=== PATIENT | female | born 1970 | race Caucasian/White ===

== ENCOUNTER 2019-05-26 06:00 | Outpatient (RCR) | payer MEDICAID, SELFPAY | END 2019-06-25 00:01 | LOC: GPT 06:00 | PROVIDERS: Family Provider Nurse Practitioner Family; Visit Provider Licensed Practical Nurse | DX: G89.29 Other chronic pain (principal); M54.9 Dorsalgia, unspecified | CPT/HCPCS: 97110 ×3; 97530 ×2 ==

== ENCOUNTER → 2019-07-03 07:53 | Outpatient (BNVA) | payer MEDICAID, SELFPAY | PROVIDERS: PCP Physician Assistant; Visit Provider Nurse Practitioner | DX: Z51.81 Encounter for therapeutic drug level monitoring (principal); F43.10 Post-traumatic stress disorder, unspecified | CPT/HCPCS: 99213 ==

== ENCOUNTER → 2019-07-09 13:37 | Outpatient (BNVA) | payer MEDICAID, SELFPAY | PROVIDERS: Family Provider Nurse Practitioner Family; PCP Nurse Practitioner Family; Visit Provider Nurse Practitioner | DX: G89.29 Other chronic pain (principal); M51.17 Intervertebral disc disorders with radiculopathy, lumbosacral region; M43.16 Spondylolisthesis, lumbar region; M25.30 Other instability, unspecified joint; F17.210 Nicotine dependence, cigarettes, uncomplicated; Z79.891 Long term (current) use of opiate analgesic | CPT/HCPCS: 99214 ==

== ENCOUNTER → 2019-08-06 15:14 | Outpatient (BNVA) | payer MEDICAID, SELFPAY | PROVIDERS: Family Provider Nurse Practitioner Family; PCP Nurse Practitioner Family; Visit Provider Nurse Practitioner Family | DX: R10.9 Unspecified abdominal pain (principal) | CPT/HCPCS: 80053; 81003; 85025 ==

== ENCOUNTER → 2019-09-03 09:57 | Outpatient (BNVA) | payer MEDICAID, SELFPAY | PROVIDERS: Family Provider Nurse Practitioner Family; PCP Nurse Practitioner Family; Visit Provider Nurse Practitioner | DX: G89.29 Other chronic pain (principal); M53.3 Sacrococcygeal disorders, not elsewhere classified; M51.17 Intervertebral disc disorders with radiculopathy, lumbosacral region; M43.16 Spondylolisthesis, lumbar region; M79.661 Pain in right lower leg; M72.2 Plantar fascial fibromatosis; F17.210 Nicotine dependence, cigarettes, uncomplicated; Z79.891 Long term (current) use of opiate analgesic; Z71.6 Tobacco abuse counseling | CPT/HCPCS: 99214 ==

== ENCOUNTER 2019-09-03 11:47 | Emergency (ER) | payer MEDICAID, SELFPAY ==
[2019-09-03 11:57] VITALS: BP 144/72; PULSE 63; RESP 16; TEMP 36.6; O2SAT 95; BMI 35.3
--- NOTE | 2019-09-03 11:57 | USCV_ITS ---
Mariam Lyons Age: 49 Gender: F : 1970 Exam Date: 09/03/2019 12:18 Ordering Phys: Dayne Hensley Technologist: Yana Schuster Exam Location: [facility] [place] Indication: SWELLING PROCEDURES: Venous duplex imaging was performed in only the right lower extremity. The following venous structures were evaluated: common femoral vein, profunda vein, proximal portion of the greater saphenous vein, superficial femoral vein, and the popliteal vein. In addition, the posterior tibial and peroneal trunk were evaluated. FINDINGS: Normal 2-D Doppler and augmentation and compressibility throughout the lower extremity venous structures. Additional imaging through the proximal calf veins also reveals no thrombus. Limited evaluation of the greater saphenous vein is patent with no thrombus.. CONCLUSIONS Negative right lower extremity deep venous Doppler ultrasound. Dr. Josefina Davis MD (Electronically Signed) Final Date: 03 September 2019 13:12 S
--- NOTE | 2019-09-03 12:10 | ED_ITS ---
HPI - Extremity Problem General: Chief complaint: Extremity Problem,Nontraumatic Stated complaint: RIGHT LEG PAIN Time Seen by Provider: 09/03/19 11:57 History of Present Illness: HPI Narrative: Right lower extremity pain with patient's tender swelling to the calf. Was seen at pain clinic today and was unable to get an ultrasound scheduled for rule out DVT sent here for ultrasound. Patient said her cast been hurting for couple days no other complaints or problems he cites her chronic pain MD Complaint: extremity pain and extremity swelling Onset (ago): day(s) (2) Pain Consistency: constant Location: right and lower extremity Severity scale (1-10): 5 Quality: aching Radiation: none Exacerbating factors: rest Associated symptoms: Deny chest pain, fever(s) or rash Review of Systems Const: Denies: fever, chills or body aches Eyes: Denies: change in vision or blurry vision ENMT: Denies: throat pain or nasal congestion Card: Denies: chest pain or shortness of breath on exertion Resp: Denies: shortness of breath, productive cough or non-productive cough GI: Denies: abdominal pain, nausea or vomiting Musc: Reports: extremity pain and extremity swelling (Right lower extremity x2 days) Skin/Breast: Denies: rash Neuro: Denies: headache Psych: Denies: anxiety or depression Arnulfo/Lymph: Denies: easy bruising PFSH ED PFSH: Medical History (Updated 09/03/19 @ 10:50 by RAZA Sales) Chronic back pain greater than 3 months duration Chronic right SI joint pain Instability of joint Intervertebral disc disorders with radiculopathy, lumbosacral region correction (current) use of opiate analgesic Major depressive disorder, recurrent, moderate Nicotine dependence, cigarettes, uncomplicated Opioid contract exists Post-traumatic stress disorder, unspecified Spondylolisthesis, lumbar region Surgical History (Updated 09/03/19 @ 10:33 by RAZA Sales) History of carpal tunnel surgery 2005 [place] section 1990 [place] 1993 [facility] [place] Hx of cholecystectomy laparascopic procedure 1999 Hx of hernia repair 08/07/19 Dr. Belcher [facility] [place] Hx of hysterectomy total laparoscopic hysterectomy, bilat salpingectomy and extensive lysis of omental adhesions on 03/22/[address] Marr at [facility] [place] for irrecular bleeding and abdominal pain. Postopertavely pathology showed no significant histopathological alteration in cervix, peritoneum, endometrium, myometrium and bilat fallopian tubes Hx of rhinoplasty 2000 in [place] Hx of tonsillectomy 2000 [place] Hx of tubal ligation 1993 [place] Home at time of second Social History Smoking and tobacco status: current every day smoker cigarettes Years cigarettes smoked: 35 [ Other cigarette details: 8 CIGS DAY ] Alcohol intake: never Physical Exam Const: COMMON NORMALS: no apparent distress, average body habitus and oriented x3 HENMT: COMMON NORMALS: normocephalic HEAD & SCALP: normal to inspection and normocephalic FACE & SINUS: normal facial exam Eye: COMMON NORMALS: conjunctivae normal GENERAL EYE: normal appearance of both eyes CONJUNCTIVA: Yes conjunctivae normal Neck/C-Spine: COMMON NORMALS: no JVD Chest: COMMONS NORMALS: inspection of chest normal Resp: COMMON NORMALS: normal respiratory effort and clear to auscultation bilaterally AUSCULTATION: clear to auscultation bilaterally Cardio: COMMON NORMALS: no JVD, regular rate and regular rhythm RATE: regular rate RHYTHM: regular rhythm GI: COMMON NORMALS: normal to inspection, nondistended, normoactive bowel sounds Extremity: COMMON NORMALS: normal to inspection and full ROM RIGHT LOWER EXTREMITY: Yes lower leg (Patient complains about calf tenderness with palpation I did not notice any swelling or erythema to the leg has good pulses throughout cap refill vascular status intact) Neuro: COMMON NORMALS: oriented x3 Course Vital Signs: Vital signs: Vital Signs Temperature 97.9 F 09/03/19 11:57 Pulse Rate 63 09/03/19 11:57 Respiratory Rate 16 09/03/19 11:57 Blood Pressure 144/72 09/03/19 11:57 Pulse Oximetry 95 09/03/19 11:57 Discharge Plan Discharge Prescriptions: No Action methylprednisolone acetate [Depo-Medrol] 40 mg/mL suspension 40 mg Infiltration ONCE Qty: 1 RF: 0 bupivacaine (PF) 0.25 % (2.5 mg/mL) solution 5 ml Infiltration ONCE Qty: 1 RF: 0 water pills as directed BID RF: 0 biotin 1000 as directed RF: 0 gabapentin 300 mg capsule 300 mg PO TID Qty: 90 RF: 1 meloxicam 15 mg tablet 15 mg PO ONCE Qty: 30 RF: 1 hydrocodone-acetaminophen 5-325 mg tablet 1 tab PO BID PRN (Reason: pain) 30 Days Qty: 60 RF: 0 hydrocodone-acetaminophen 5-325 mg tablet 1 tab PO TID PRN (Reason: pain) 30 Days Qty: 90 RF: 0 venlafaxine 150 mg capsule,extended release 24hr 150 mg PO QAM Qty: 30 RF: 2 venlafaxine 75 mg capsule,extended release 24hr 75 mg PO QAM Qty: 30 RF: 2 albuterol sulfate [ProAir HFA] 90 mcg/actuation HFA aerosol inhaler 2 puff INHALATION .every 4 hours PRNRF: 0 Coding Level of Care Code ED 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
[2019-09-03 12:28] LABS: Basophils # 0.1 10^3/uL (0.0-0.1); Basophils % 0.6 %; Eosinophils # 0.5 10^3/uL (0.0-0.8); Eosinophils % 3.9 %; Hemoglobin 14.6 g/dL (11.5-15.3); Lymphocytes # 4.7 10^3/uL (0.8-4.8); Lymphocytes % 33.6 %; Mean Corpuscular HGB Conc 32.4 g/dL (30.0-36.0); Mean Corpuscular Hemoglobin 30.2 pg (28.0-34.0); Mean Platelet Volume 9.2 fL (7.4-10.4); Monocytes # 0.6 10^3/uL (0.2-0.9); Monocytes % 4.3 %; Neutrophils # 7.9 10^3/uL (1.8-7.7); Neutrophils % 56.9 %; Nucleated Red Blood Cells % 0 %; Platelet Count 393 10^3/cmm (130-400); Red Blood Count 4.84 10^6/uL (4.1-5.3); Red Cell Distribution Width 13.2 % (12.1-15.1); White Blood Count 13.8 10^3/uL (4.0-10.0)
[2019-09-03 12:39] LABS: INR 0.92 (0.8-1.2)
[2019-09-03 12:41] LABS: D Dimer <= 0.27 ug/mIFEU (0-0.59)
[2019-09-03 12:44] LABS: Alanine Aminotransferase 41 U/L (0-33); Albumin Level 4.1 g/dL (3.5-5.2); Alkaline Phosphatase 136 IU/L (35-105); Aspartate Amino Transferase 33 U/L (0-32); Blood Urea Nitrogen 12 mg/dL (6-20); Calcium 9.7 mg/dL (8.5-10.5); Carbon Dioxide 21 mmol/L (22-29); Chloride 102 mmol/L (98-107); Globulin 3.4 g/dL (1.3-4.6); Glomerular Filtration Rate 107.2 mL/min (90-130); Glucose 211 mg/dL (65-115); Osmolality Calculated 280 mOsm/kg (285-295); Sodium 134 mmol/L (136-145); Total Bilirubin 0.4 mg/dL (0.15-1.2); Total Protein 7.5 g/dL (6.6-8.7)
[2019-09-03 13:23] VITALS: BP 146/89; PULSE 70; RESP 16; O2SAT 95
== END 2019-09-03 13:23 | disposition home or self-care (01) ==
PROVIDERS: Emergency Provider Nurse Practitioner Family; Family Provider Nurse Practitioner Family; PCP Nurse Practitioner Family
DX: M79.661 Pain in right lower leg (principal); R22.41 Localized swelling, mass and lump, right lower limb; F17.210 Nicotine dependence, cigarettes, uncomplicated
CPT/HCPCS: 12345; 36415; 80053; 85025; 85378; 85610; 93971; 99281; 99283

== ENCOUNTER → 2019-09-25 07:31 | Outpatient (BNVA) | payer MEDICAID, SELFPAY | PROVIDERS: Family Provider Nurse Practitioner Family; PCP Nurse Practitioner Family; Visit Provider Nurse Practitioner | DX: F43.10 Post-traumatic stress disorder, unspecified (principal); F33.1 Major depressive disorder, recurrent, moderate | CPT/HCPCS: 99213 ==

== ENCOUNTER → 2019-10-23 10:51 | Outpatient (BNVA) | payer MEDICAID, SELFPAY | PROVIDERS: Family Provider Nurse Practitioner Family; PCP Nurse Practitioner Family; Visit Provider Nurse Practitioner Family | DX: R73.9 Hyperglycemia, unspecified (principal) | CPT/HCPCS: 83036 ==

== ENCOUNTER → 2019-11-14 08:08 | Outpatient (BNVA) | payer MEDICAID, SELFPAY | PROVIDERS: Family Provider Nurse Practitioner Family; PCP Nurse Practitioner Family; Visit Provider Anesthesiology | DX: G89.29 Other chronic pain (principal); M53.3 Sacrococcygeal disorders, not elsewhere classified; F17.210 Nicotine dependence, cigarettes, uncomplicated; Z71.89 Other specified counseling | CPT/HCPCS: G0260; J1030; J2001; J3490 ==

== ENCOUNTER → 2019-12-18 07:35 | Outpatient (BNVA) | payer MEDICAID, SELFPAY | PROVIDERS: Family Provider Nurse Practitioner Family; PCP Nurse Practitioner Family; Visit Provider Nurse Practitioner | DX: F33.1 Major depressive disorder, recurrent, moderate (principal); F43.10 Post-traumatic stress disorder, unspecified; F17.210 Nicotine dependence, cigarettes, uncomplicated | CPT/HCPCS: 99214 ==

== ENCOUNTER → 2020-01-02 13:40 | Outpatient (BNVA) | payer MEDICAID, SELFPAY | PROVIDERS: Family Provider Nurse Practitioner Family; PCP Nurse Practitioner Family; Visit Provider Anesthesiology | DX: G89.29 Other chronic pain (principal); M51.17 Intervertebral disc disorders with radiculopathy, lumbosacral region; M43.16 Spondylolisthesis, lumbar region; M54.9 Dorsalgia, unspecified; M25.552 Pain in left hip; F17.210 Nicotine dependence, cigarettes, uncomplicated; Z79.1 Long term (current) use of non-steroidal anti-inflammatories (NSAID); Z79.891 Long term (current) use of opiate analgesic | CPT/HCPCS: 99214 ==

== ENCOUNTER → 2020-01-03 14:00 | Outpatient (BNVA) | payer MEDICAID, SELFPAY | PROVIDERS: Family Provider Nurse Practitioner Family; PCP Nurse Practitioner Family; Visit Provider Nurse Practitioner Family | DX: Z79.1 Long term (current) use of non-steroidal anti-inflammatories (NSAID) (principal) | CPT/HCPCS: 80053 ==

== ENCOUNTER 2020-01-23 09:03 | Outpatient (CLI) | payer MEDICAID, SELFPAY ==
--- NOTE | 2020-01-23 09:17 | US_ITS ---
WS: [id number] ULTRASOUND ABDOMEN LIMITED CLINICAL INFORMATION: ELEVATED LIVER ENZYMES-CONTINUING TO INCREASE COMPARISON: None. FINDINGS: Liver Size: Normal. Craniocaudal length: 19.6 cm. Echogenicity: Coarse Surface nodularity: None. Mass (size and location): None. Bile ducts Intrahepatic ducts: Normal. Common bile duct diameter: 0.2 cm. Gallbladder Removed Pancreas: Echogenic Right kidney: Normal. Hydronephrosis: None. Size: 13.6 cm x 5.5 cm x 4.3 cm. Abdominal aorta and IVC Visualized portions are normal. Ascites: None. US/US gall bladder [id number] IMPRESSION: 1. Hepatomegaly with diffuse fatty infiltration. 2. Gallbladder has been removed. Normal common bile duct. 3. No hydronephrosis in right kidney. 4. Echogenic pancreas can be seen with fatty infiltration as well as pancreati tis. Recommend correlation with pancreatic enzymes. This can be further evaluat ed with CT abdomen pelvis with contrast.
== END 2020-01-23 09:04 | disposition home or self-care (01) ==
PROVIDERS: Family Provider Nurse Practitioner Family; PCP Nurse Practitioner Family; Visit Provider Nurse Practitioner Family
DX: R74.8 Abnormal levels of other serum enzymes (principal); R16.0 Hepatomegaly, not elsewhere classified; K76.0 Fatty (change of) liver, not elsewhere classified
CPT/HCPCS: 76705

== ENCOUNTER 2020-02-13 11:54 | Outpatient (CLI) | payer MEDICAID, SELFPAY ==
[2020-02-13] MEDS: iohexol 300 mg/mL 50 mL Btl PO (12:40)
--- NOTE | 2020-02-13 13:30 | CT_ITS ---
WS: [id number] EXAM: CT OF THE ABDOMEN AND PELVIS WITH CONTRAST DATE OF EXAMINATION: 02/13/2020, 1345 hours COMPARISON: Prior CT from 11/13/2015 and right upper quadrant ultrasound from 01/23/2020. HISTORY: 49 years old with elevated liver enzymes, abdominal pain. Abnormal ultrasound of the pancreas and sandra er. TECHNIQUE: Transaxial computed tomography images obtained through the abdomen and pelvis utilizing 95 mL of Omni paque 300 IV contrast with images acquired in the portal phase. Images viewed in multiple windows wit h reconstructions. DLP: 1143.[address] scans at [facility] use at least one of these dose optimization techniques: automat ed exposure control; mA and/or kV adjustment per patient size (includes targeted exams where dose is matched to clinical indication); or iterative reconstruction. FINDINGS: There is slight groundglass attenuation within both lungs most likely related to poor inspiratory eff ort. Please correlate for pulmonary symptomatology. No consolidative infiltrate, effusion or pneumoth orax. Heart size is normal. The aorta is normal in caliber and opacifies normally. The liver is enlarged. Attenuation changes are scattered in the liver suggesting mild areas of fatty infiltration. Vessels are running through this area of decreased attenuation without appreciable mass effect upon the vessels. Infiltration not considered to be diffusely throughout the liver. There is an area of advanced fatty infiltration along the right inferior gallbladder fossa. The gallbladder is surgically absent No biliary dilatation is seen. The portal vein is patent. Spleen is normal in size and enhancement. Pancreas is normal in appearance. Adrenal glands are normal in appearance. Both kidneys enhance normally. Low-density lesion dorsal superior left kidney most likely a subcentim eter cyst also seen on prior imaging. Too small to completely characterize. No obstructive uropathy. No renal or ureteral calculus. Stomach is decompressed otherwise fairly normal in appearance. Small bowel is normal in caliber. The colon is normal in caliber. No bowel obstruction, free air, free fluid or inflammatory process. N ormal appendix in the right false pelvis region. No intraperitoneal or retroperitoneal adenopathy or mass is identified. Tiny amount of fluid at the level of the umbilicus with findings of a prior umbilical hernia repair. Most likely is a postop seroma or chronic hematoma. New since the 2016 examination with interval jodi ia repair. No inguinal hernia is seen. Uterus is absent. Right ovary is normal in size. Left ovary is slightly prominent in size with multip le follicular cysts. The largest 2.7 cm is in size. Trace free fluid in the deep pelvis. Scattered de generative changes are seen in the spine. CT/CT abdomen pelvis w con* [id number] IMPRESSION: Imaging findings of hepatomegaly with mild fatty infiltration in the liver. No definite solid mass lesion. Interval umbilical hernia repair with small amount of fluid at the surgical sit e suggesting a postop seroma or chronic hematoma. No bowel obstruction, free air, extensive free fluid or inflammatory process. No renal or ureteral calculus or obstructive uropathy. Other nonemergent findings as described in the body of the report.
[2020-02-13] MEDS: iohexol 300 mg/mL 100 mL Btl IV (13:46)
== END 2020-02-13 11:55 | disposition home or self-care (01) ==
LOC: RADWPI 11:57
PROVIDERS: Family Provider Nurse Practitioner Family; PCP Nurse Practitioner Family; Visit Provider Nurse Practitioner Family
DX: R74.8 Abnormal levels of other serum enzymes (principal); R93.89 Abnormal findings on diagnostic imaging of other specified body structures; R10.9 Unspecified abdominal pain; R16.0 Hepatomegaly, not elsewhere classified; K76.0 Fatty (change of) liver, not elsewhere classified
CPT/HCPCS: 74177; Q9967

== ENCOUNTER → 2020-02-19 10:08 | Outpatient (BNVA) | payer MEDICAID, SELFPAY | PROVIDERS: Family Provider Nurse Practitioner Family; PCP Nurse Practitioner Family; Visit Provider Counselor Professional | DX: F33.1 Major depressive disorder, recurrent, moderate (principal); F17.210 Nicotine dependence, cigarettes, uncomplicated; F43.11 Post-traumatic stress disorder, acute | CPT/HCPCS: 90834 ==

== ENCOUNTER → 2020-03-18 13:29 | Outpatient (BNVA) | payer MEDICAID, SELFPAY | PROVIDERS: Family Provider Nurse Practitioner Family; PCP Nurse Practitioner Family; Visit Provider Nurse Practitioner | DX: G89.29 Other chronic pain (principal); M51.17 Intervertebral disc disorders with radiculopathy, lumbosacral region; M43.16 Spondylolisthesis, lumbar region; M53.3 Sacrococcygeal disorders, not elsewhere classified; M54.9 Dorsalgia, unspecified; M25.30 Other instability, unspecified joint; F17.210 Nicotine dependence, cigarettes, uncomplicated; Z79.891 Long term (current) use of opiate analgesic; Z71.6 Tobacco abuse counseling | CPT/HCPCS: 99214 ==

== ENCOUNTER → 2020-03-24 15:28 | Outpatient (BNVA) | payer MEDICAID, SELFPAY | PROVIDERS: Family Provider Nurse Practitioner Family; PCP Nurse Practitioner Family; Visit Provider Counselor Professional | DX: F43.11 Post-traumatic stress disorder, acute (principal); F33.1 Major depressive disorder, recurrent, moderate; F17.210 Nicotine dependence, cigarettes, uncomplicated | CPT/HCPCS: 90832 ==

== ENCOUNTER → 2020-03-25 07:50 | Outpatient (BNVA) | payer MEDICAID, SELFPAY | PROVIDERS: Family Provider Nurse Practitioner Family; PCP Nurse Practitioner Family; Visit Provider Nurse Practitioner | DX: F33.1 Major depressive disorder, recurrent, moderate (principal); F43.10 Post-traumatic stress disorder, unspecified | CPT/HCPCS: 99213 ==

== ENCOUNTER → 2020-03-30 08:35 | Outpatient (BNVA) | payer MEDICAID, SELFPAY | PROVIDERS: Family Provider Nurse Practitioner Family; PCP Nurse Practitioner Family; Visit Provider Counselor Professional | DX: F33.1 Major depressive disorder, recurrent, moderate (principal); F17.210 Nicotine dependence, cigarettes, uncomplicated | CPT/HCPCS: 90834 ==

== ENCOUNTER → 2020-04-13 08:30 | Outpatient (BNVA) | payer MEDICAID, SELFPAY | PROVIDERS: Family Provider Nurse Practitioner Family; PCP Nurse Practitioner Family; Visit Provider Counselor Professional | DX: F33.1 Major depressive disorder, recurrent, moderate (principal); F17.210 Nicotine dependence, cigarettes, uncomplicated | CPT/HCPCS: 90834 ==

== ENCOUNTER → 2020-04-27 07:57 | Outpatient (BNVA) | payer MEDICAID, SELFPAY | PROVIDERS: Family Provider Nurse Practitioner Family; PCP Nurse Practitioner Family; Visit Provider Counselor Professional | DX: F33.1 Major depressive disorder, recurrent, moderate (principal); F43.12 Post-traumatic stress disorder, chronic | CPT/HCPCS: 90834 ==

== ENCOUNTER → 2020-05-18 10:00 | Outpatient (BNVA) | payer MEDICAID, SELFPAY | PROVIDERS: Family Provider Nurse Practitioner Family; PCP Nurse Practitioner Family; Visit Provider Counselor Professional | DX: F33.1 Major depressive disorder, recurrent, moderate (principal); F43.10 Post-traumatic stress disorder, unspecified | CPT/HCPCS: 90834 ==

== ENCOUNTER → 2020-07-03 11:00 | Outpatient (BNVA) | payer MEDICAID, SELFPAY | PROVIDERS: Family Provider Nurse Practitioner Family; PCP Nurse Practitioner Family; Visit Provider Nurse Practitioner | DX: F43.10 Post-traumatic stress disorder, unspecified (principal); F33.1 Major depressive disorder, recurrent, moderate; F17.210 Nicotine dependence, cigarettes, uncomplicated | CPT/HCPCS: 99214 ==

== ENCOUNTER → 2020-07-06 11:00 | Outpatient (BNVA) | payer OTHER, MEDICAID, SELFPAY | PROVIDERS: Family Provider Nurse Practitioner Family; PCP Nurse Practitioner Family; Visit Provider Counselor Professional | DX: F43.12 Post-traumatic stress disorder, chronic (principal); F33.1 Major depressive disorder, recurrent, moderate; F17.210 Nicotine dependence, cigarettes, uncomplicated | CPT/HCPCS: 90834 ==

== ENCOUNTER → 2020-07-08 08:58 | Outpatient (BNVA) | payer MEDICAID, SELFPAY | PROVIDERS: Family Provider Nurse Practitioner Family; PCP Nurse Practitioner Family; Visit Provider Nurse Practitioner | DX: G89.29 Other chronic pain (principal); M43.16 Spondylolisthesis, lumbar region; M51.17 Intervertebral disc disorders with radiculopathy, lumbosacral region; M54.9 Dorsalgia, unspecified; M53.3 Sacrococcygeal disorders, not elsewhere classified; F17.210 Nicotine dependence, cigarettes, uncomplicated; Z79.1 Long term (current) use of non-steroidal anti-inflammatories (NSAID); Z79.891 Long term (current) use of opiate analgesic; Z71.6 Tobacco abuse counseling | CPT/HCPCS: 99213; 99214 ==

== ENCOUNTER → 2020-07-20 09:08 | Outpatient (BNVA) | payer MEDICAID, SELFPAY | PROVIDERS: Family Provider Nurse Practitioner Family; PCP Nurse Practitioner Family; Visit Provider Counselor Professional | DX: F43.12 Post-traumatic stress disorder, chronic (principal); F33.1 Major depressive disorder, recurrent, moderate | CPT/HCPCS: 90834 ==

== ENCOUNTER → 2020-07-23 08:40 | Outpatient (BNVA) | payer MEDICAID, SELFPAY | PROVIDERS: Family Provider Nurse Practitioner Family; PCP Nurse Practitioner Family; Visit Provider Anesthesiology | DX: G89.29 Other chronic pain (principal); M53.3 Sacrococcygeal disorders, not elsewhere classified; F17.210 Nicotine dependence, cigarettes, uncomplicated; Z79.891 Long term (current) use of opiate analgesic | CPT/HCPCS: 77003; 80061; 83036; G0260; J1030; J3490 ==

== ENCOUNTER → 2020-07-24 09:59 | Outpatient (BNVA) | payer MEDICAID, SELFPAY ==
[2020-07-24 09:42] VITALS: BP 127/73; BMI 35.0
== END ==
PROVIDERS: Family Provider Nurse Practitioner Family; PCP Nurse Practitioner Family; Visit Provider Family Medicine
DX: E11.69 Type 2 diabetes mellitus with other specified complication (principal); E78.5 Hyperlipidemia, unspecified
CPT/HCPCS: 36415; 80053; 83036; 84439; 84443

== ENCOUNTER → 2020-08-03 08:37 | Outpatient (BNVA) | payer MEDICAID, SELFPAY ==
[2020-07-24 09:42] VITALS: BP 127/73; BMI 35.0
== END ==
PROVIDERS: Family Provider Nurse Practitioner Family; PCP Nurse Practitioner Family; Visit Provider Counselor Professional
DX: F43.12 Post-traumatic stress disorder, chronic (principal); F33.1 Major depressive disorder, recurrent, moderate
CPT/HCPCS: 90834

== ENCOUNTER → 2020-08-13 07:58 | Outpatient (BNVA) | payer MEDICAID, SELFPAY ==
[2020-07-24 09:42] VITALS: BP 127/73; BMI 35.0
== END ==
PROVIDERS: Family Provider Nurse Practitioner Family; PCP Nurse Practitioner Family; Visit Provider Counselor Professional
DX: F43.12 Post-traumatic stress disorder, chronic (principal); F33.1 Major depressive disorder, recurrent, moderate
CPT/HCPCS: 90834

== ENCOUNTER → 2020-08-14 07:58 | Outpatient (BNVA) | payer MEDICAID, SELFPAY ==
[2020-07-24 09:42] VITALS: BP 127/73; BMI 35.0
== END ==
PROVIDERS: Family Provider Nurse Practitioner Family; PCP Nurse Practitioner Family; Visit Provider Nurse Practitioner
DX: F43.10 Post-traumatic stress disorder, unspecified (principal); F33.1 Major depressive disorder, recurrent, moderate; F17.210 Nicotine dependence, cigarettes, uncomplicated
CPT/HCPCS: 99214

== ENCOUNTER → 2020-08-20 09:45 | Outpatient (BNVA) | payer MEDICAID, SELFPAY ==
[2020-07-24 09:42] VITALS: BP 127/73; BMI 35.0
== END ==
PROVIDERS: Family Provider Nurse Practitioner Family; PCP Nurse Practitioner Family; Visit Provider Nurse Practitioner
DX: G89.29 Other chronic pain (principal); M51.17 Intervertebral disc disorders with radiculopathy, lumbosacral region; M79.661 Pain in right lower leg; M54.9 Dorsalgia, unspecified; M53.3 Sacrococcygeal disorders, not elsewhere classified; F17.210 Nicotine dependence, cigarettes, uncomplicated; Z79.1 Long term (current) use of non-steroidal anti-inflammatories (NSAID); Z79.891 Long term (current) use of opiate analgesic; Z71.6 Tobacco abuse counseling
CPT/HCPCS: 99214

== ENCOUNTER → 2020-08-27 08:15 | Outpatient (BNVA) | payer MEDICAID, SELFPAY ==
[2020-07-24 09:42] VITALS: BP 127/73; BMI 35.0
== END ==
PROVIDERS: Family Provider Nurse Practitioner Family; PCP Nurse Practitioner Family; Visit Provider Counselor Professional
DX: F33.1 Major depressive disorder, recurrent, moderate (principal); F17.210 Nicotine dependence, cigarettes, uncomplicated; F43.12 Post-traumatic stress disorder, chronic
CPT/HCPCS: 90834

== ENCOUNTER → 2020-09-03 08:01 | Outpatient (BNVA) | payer MEDICAID, SELFPAY ==
[2020-07-24 09:42] VITALS: BP 127/73; BMI 35.0
== END ==
PROVIDERS: Family Provider Nurse Practitioner Family; PCP Nurse Practitioner Family; Visit Provider Counselor Professional
DX: F33.1 Major depressive disorder, recurrent, moderate (principal)
CPT/HCPCS: 90832; 90834

== ENCOUNTER 2020-09-17 12:00 | Outpatient (CLI) | payer MEDICAID, SELFPAY ==
[2020-07-24 09:42] VITALS: BP 127/73; BMI 35.0
[2020-09-17 09:59] VITALS: BP 127/73; BMI 35.0
[2020-09-17] MEDS: iohexol 300 mg/mL 50 mL Btl PO (12:44)
--- NOTE | 2020-09-17 15:00 | CT_ITS ---
WS: [id number] CT ABDOMEN PELVIS TECHNIQUE: Contrast-enhanced CT of the abdomen and pelvis with coronal and sagittal reformatted image s. CLINICAL INFORMATION: K42.9 - Umbilical hernia without obstruction or gangrene COMPARISON: CT February 13, 2020 DLP: 1110.[address] scans at [facility] use at least one of these dose optimization techniques: automat ed exposure control; mA and/or kV adjustment per patient size (includes targeted exams where dose is matched to clinical indication); or iterative reconstruction. FINDINGS: Hepatomegaly with diffuse fatty infiltration. Normal portal vein and splenic vein. Normal spleen. Wendie or cholecystectomy. Lung bases are well aerated. Normal GE junction. Proximal duodenum is normal in a ppearance. Wide mouth fat-containing ventral abdominal wall/umbilical hernia. Previously described se jose luis at the repair site has resolved. There is recurrent contained herniation at this level with jodi iated omental fat. Hernia mouth measures approximately 4.1 CM. No herniated bowel. No evidence of small or large bowel obstruction. Normal sigmoid colon.Normal appendix in the right lo wer quadrant. Urine distended bladder. Right ovarian cyst measuring 2.1 CM. Normal lumbar spine. CT/CT abdomen pelvis w con* [id number] IMPRESSION: 1. Hepatomegaly with diffuse fatty infiltration. 2. Prior cholecystectomy. 3. Recurrent contained fat-containing umbilical hernia with a wide mouth openi ng measuring 4.1 cm. No herniated bowel. Resolution of the previously described seroma. 4. No evidence of small or large bowel obstruction. 5. Normal bilateral renal parenchymal enhancement. No hydronephrosis. Small le ft renal cyst. 6. Small right ovarian cyst measuring 2.1 cm. 7. No other significant findings.
== END 2020-09-17 12:01 | disposition home or self-care (01) ==
LOC: RADWPI 12:01
PROVIDERS: PCP Nurse Practitioner Family; Visit Provider Surgery
DX: G89.29 Other chronic pain (principal); M51.17 Intervertebral disc disorders with radiculopathy, lumbosacral region; M54.9 Dorsalgia, unspecified; M43.16 Spondylolisthesis, lumbar region; M53.3 Sacrococcygeal disorders, not elsewhere classified; M79.661 Pain in right lower leg; M25.30 Other instability, unspecified joint; F17.210 Nicotine dependence, cigarettes, uncomplicated; Z79.1 Long term (current) use of non-steroidal anti-inflammatories (NSAID); Z79.891 Long term (current) use of opiate analgesic; F33.1 Major depressive disorder, recurrent, moderate; K42.9 Umbilical hernia without obstruction or gangrene; N83.201 Unspecified ovarian cyst, right side; Z90.49 Acquired absence of other specified parts of digestive tract; R16.0 Hepatomegaly, not elsewhere classified; K76.0 Fatty (change of) liver, not elsewhere classified
CPT/HCPCS: 90832; 74177; 90834; 99213; Q9967

== ENCOUNTER → 2020-09-24 11:30 | Outpatient (BNVA) | payer MEDICAID, SELFPAY ==
[2020-09-17 09:59] VITALS: BP 127/73; BMI 35.0
== END ==
PROVIDERS: PCP Nurse Practitioner Family; Visit Provider Nurse Practitioner
DX: F33.1 Major depressive disorder, recurrent, moderate (principal); F17.210 Nicotine dependence, cigarettes, uncomplicated; F43.12 Post-traumatic stress disorder, chronic
CPT/HCPCS: 99204

== ENCOUNTER → 2020-10-08 09:11 | Outpatient (BNVA) | payer MEDICAID, SELFPAY ==
[2020-09-17 09:59] VITALS: BP 127/73; BMI 35.0
== END ==
PROVIDERS: PCP Nurse Practitioner Family; Visit Provider Counselor Professional
DX: F33.1 Major depressive disorder, recurrent, moderate (principal); F43.12 Post-traumatic stress disorder, chronic
CPT/HCPCS: 90834

== ENCOUNTER → 2020-10-22 07:58 | Outpatient (BNVA) | payer MEDICAID, SELFPAY | PROVIDERS: PCP Nurse Practitioner Family; Visit Provider Anesthesiology | DX: G89.29 Other chronic pain (principal); M51.17 Intervertebral disc disorders with radiculopathy, lumbosacral region; M43.16 Spondylolisthesis, lumbar region; M54.9 Dorsalgia, unspecified; Z79.891 Long term (current) use of opiate analgesic | CPT/HCPCS: 62323; J1040; J3490 ==

== ENCOUNTER → 2020-10-29 07:52 | Outpatient (BNVA) | payer MEDICAID, SELFPAY | PROVIDERS: PCP Nurse Practitioner Family; Visit Provider Counselor Professional | DX: F33.1 Major depressive disorder, recurrent, moderate (principal) | CPT/HCPCS: 90832 ==

== ENCOUNTER → 2020-11-12 08:35 | Outpatient (BNVA) | payer MEDICAID, SELFPAY | PROVIDERS: PCP Nurse Practitioner Family; Visit Provider Anesthesiology | DX: G89.29 Other chronic pain (principal); M51.17 Intervertebral disc disorders with radiculopathy, lumbosacral region; M54.9 Dorsalgia, unspecified; M43.16 Spondylolisthesis, lumbar region; M53.3 Sacrococcygeal disorders, not elsewhere classified; M79.661 Pain in right lower leg; F17.210 Nicotine dependence, cigarettes, uncomplicated; Z79.891 Long term (current) use of opiate analgesic; Z79.1 Long term (current) use of non-steroidal anti-inflammatories (NSAID) | CPT/HCPCS: 99213 ==

== ENCOUNTER 2020-11-16 13:17 | Outpatient (CLI) | payer MEDICAID, SELFPAY ==
--- NOTE | 2020-11-16 13:30 | MM_ITS ---
WS: [id number] BILATERAL SCREENING DIGITAL MAMMOGRAM WITH CAD HISTORY: Z12.31 - Encounter for screening mammogram for malignant neoplasm of breast COMPARISON: 10/21/2015 Bilateral CC and MLO views submitted. Computer aided detection analyzed. Breast composition: There are scattered areas of fibroglandular density. No suspicious masses, microc alcifications or architectural distortion. MM/[place] [id number] IMPRESSION: BI-RADS: 1-Negative FOLLOW UP: 1 Year Follow-up
== END 2020-11-16 13:18 | disposition home or self-care (01) ==
LOC: RADSHAW 13:20
PROVIDERS: PCP Nurse Practitioner Family; Visit Provider Family Medicine
DX: Z12.31 Encounter for screening mammogram for malignant neoplasm of breast (principal)
CPT/HCPCS: 77067

== ENCOUNTER → 2020-12-31 10:22 | Outpatient (BNVA) | payer MEDICAID, SELFPAY ==
[2020-12-22 11:27] VITALS: BP 127/73; BMI 35.0
== END ==
PROVIDERS: PCP Nurse Practitioner Family; Visit Provider Nurse Practitioner Family
DX: E11.69 Type 2 diabetes mellitus with other specified complication (principal); E78.5 Hyperlipidemia, unspecified; Z68.34 Body mass index [BMI] 34.0-34.9, adult; L03.115 Cellulitis of right lower limb; R74.01 Elevation of levels of liver transaminase levels; R74.8 Abnormal levels of other serum enzymes
CPT/HCPCS: 80053; 80061; 83036; 83721

== ENCOUNTER → 2021-01-05 13:36 | Outpatient (BNVA) | payer MEDICAID, SELFPAY ==
[2020-12-22 11:27] VITALS: BP 127/73; BMI 35.0
== END ==
PROVIDERS: PCP Nurse Practitioner Family; Visit Provider Anesthesiology
DX: G89.29 Other chronic pain (principal); M51.17 Intervertebral disc disorders with radiculopathy, lumbosacral region; M43.16 Spondylolisthesis, lumbar region; M53.3 Sacrococcygeal disorders, not elsewhere classified; M54.9 Dorsalgia, unspecified; M79.661 Pain in right lower leg; F17.210 Nicotine dependence, cigarettes, uncomplicated; Z79.1 Long term (current) use of non-steroidal anti-inflammatories (NSAID); Z79.891 Long term (current) use of opiate analgesic; Z71.6 Tobacco abuse counseling
CPT/HCPCS: 99213

== ENCOUNTER → 2021-01-26 14:21 | Outpatient (BNVA) | payer MEDICAID, SELFPAY ==
[2020-12-22 11:27] VITALS: BP 127/73; BMI 35.0
== END ==
PROVIDERS: PCP Nurse Practitioner Family; Visit Provider Nurse Practitioner Family
DX: R74.8 Abnormal levels of other serum enzymes (principal)
CPT/HCPCS: 82977

== ENCOUNTER → 2021-01-27 07:20 | Outpatient (BNVA) | payer MEDICAID, SELFPAY ==
[2020-12-22 11:27] VITALS: BP 127/73; BMI 35.0
== END ==
PROVIDERS: PCP Nurse Practitioner Family; Visit Provider Counselor Professional
DX: F43.12 Post-traumatic stress disorder, chronic (principal); F33.1 Major depressive disorder, recurrent, moderate
CPT/HCPCS: 90832

== ENCOUNTER → 2021-02-08 07:23 | Outpatient (BNVA) | payer MEDICAID, OTHER, SELFPAY ==
[2020-12-22 11:27] VITALS: BP 127/73; BMI 35.0
== END ==
PROVIDERS: PCP Nurse Practitioner Family; Visit Provider Nurse Practitioner
DX: F43.12 Post-traumatic stress disorder, chronic (principal); F33.1 Major depressive disorder, recurrent, moderate; F17.210 Nicotine dependence, cigarettes, uncomplicated
CPT/HCPCS: 99214

== ENCOUNTER → 2021-02-23 16:36 | Outpatient (BNVA) | payer MEDICAID, SELFPAY ==
[2020-12-22 11:27] VITALS: BP 127/73; BMI 35.0
== END ==
PROVIDERS: PCP Nurse Practitioner Family; Visit Provider Nurse Practitioner Family
DX: R74.8 Abnormal levels of other serum enzymes (principal)
CPT/HCPCS: 80074

== ENCOUNTER → 2021-03-31 12:37 | Outpatient (BNVA) | payer MEDICAID, SELFPAY ==
[2020-12-22 11:27] VITALS: BP 127/73; BMI 35.0
== END ==
PROVIDERS: PCP Nurse Practitioner Family; Visit Provider Anesthesiology
DX: G89.29 Other chronic pain (principal); M51.17 Intervertebral disc disorders with radiculopathy, lumbosacral region; M43.16 Spondylolisthesis, lumbar region; M53.3 Sacrococcygeal disorders, not elsewhere classified; F17.210 Nicotine dependence, cigarettes, uncomplicated; Z79.1 Long term (current) use of non-steroidal anti-inflammatories (NSAID); Z79.891 Long term (current) use of opiate analgesic
CPT/HCPCS: 99213

== ENCOUNTER → 2021-04-07 10:30 | Outpatient (BNVA) | payer MEDICAID, SELFPAY ==
[2021-03-31 13:12] VITALS: BP 127/73; BMI 35.0
== END ==
PROVIDERS: PCP Nurse Practitioner Family; Visit Provider Nurse Practitioner Family
DX: E11.9 Type 2 diabetes mellitus without complications (principal)
CPT/HCPCS: 83036

== ENCOUNTER → 2021-04-15 09:55 | Outpatient (BNVA) | payer MEDICAID, SELFPAY ==
[2021-03-31 13:12] VITALS: BP 127/73; BMI 35.0
== END ==
PROVIDERS: PCP Nurse Practitioner Family; Visit Provider Anesthesiology
DX: G89.29 Other chronic pain (principal); M51.16 Intervertebral disc disorders with radiculopathy, lumbar region; Z79.891 Long term (current) use of opiate analgesic
CPT/HCPCS: 62323; J1040; J3490

== ENCOUNTER → 2021-05-25 10:08 | Outpatient (BNVA) | payer OTHER, SELFPAY ==
[2021-03-31 13:12] VITALS: BP 127/73; BMI 35.0
== END ==
PROVIDERS: PCP Nurse Practitioner Family; Visit Provider Nurse Practitioner
DX: F33.1 Major depressive disorder, recurrent, moderate (principal); F43.10 Post-traumatic stress disorder, unspecified
CPT/HCPCS: 80061; 83721

== ENCOUNTER → 2021-05-27 08:47 | Outpatient (BNVA) | payer MEDICAID, SELFPAY ==
[2021-03-31 13:12] VITALS: BP 127/73; BMI 35.0
== END ==
PROVIDERS: PCP Nurse Practitioner Family; Visit Provider Nurse Practitioner
DX: F43.12 Post-traumatic stress disorder, chronic (principal); F33.1 Major depressive disorder, recurrent, moderate; F17.210 Nicotine dependence, cigarettes, uncomplicated
CPT/HCPCS: 99214

== ENCOUNTER → 2021-06-10 07:59 | Outpatient (BNVA) | payer MEDICAID, SELFPAY ==
[2021-05-27 15:24] VITALS: BP 143/84; BMI 33.8
== END ==
PROVIDERS: PCP Nurse Practitioner Family; Visit Provider Counselor Professional
DX: F33.1 Major depressive disorder, recurrent, moderate (principal); F43.12 Post-traumatic stress disorder, chronic
CPT/HCPCS: 90834

== ENCOUNTER → 2021-06-11 15:26 | Outpatient (BNVA) | payer MEDICAID, SELFPAY ==
[2021-06-11 11:10] VITALS: BP 143/84; BMI 33.8
== END ==
PROVIDERS: PCP Nurse Practitioner Family; Visit Provider Nurse Practitioner Family
DX: T14.90XA Injury, unspecified, initial encounter (principal); X58.XXXA Exposure to other specified factors, initial encounter; M79.604 Pain in right leg
CPT/HCPCS: 73590

== ENCOUNTER → 2021-06-16 14:10 | Outpatient (BNVA) | payer MEDICAID, SELFPAY ==
[2021-06-11 11:10] VITALS: BP 143/84; BMI 33.8
== END ==
PROVIDERS: PCP Nurse Practitioner Family; Visit Provider Anesthesiology
DX: G89.29 Other chronic pain (principal); M43.16 Spondylolisthesis, lumbar region; M53.3 Sacrococcygeal disorders, not elsewhere classified; M51.17 Intervertebral disc disorders with radiculopathy, lumbosacral region; F17.210 Nicotine dependence, cigarettes, uncomplicated; Z79.891 Long term (current) use of opiate analgesic; Z71.6 Tobacco abuse counseling
CPT/HCPCS: 99213

== ENCOUNTER → 2021-06-24 07:57 | Outpatient (BNVA) | payer MEDICAID, SELFPAY ==
[2021-06-11 11:10] VITALS: BP 143/84; BMI 33.8
== END ==
PROVIDERS: PCP Nurse Practitioner Family; Visit Provider Nurse Practitioner
DX: F33.1 Major depressive disorder, recurrent, moderate (principal); F17.210 Nicotine dependence, cigarettes, uncomplicated
CPT/HCPCS: 99214

== ENCOUNTER → 2021-06-29 07:21 | Outpatient (BNVA) | payer MEDICAID, SELFPAY ==
[2021-06-11 11:10] VITALS: BP 143/84; BMI 33.8
== END ==
PROVIDERS: PCP Nurse Practitioner Family; Visit Provider Counselor Professional
DX: F33.1 Major depressive disorder, recurrent, moderate (principal); F17.210 Nicotine dependence, cigarettes, uncomplicated
CPT/HCPCS: 90834

== ENCOUNTER → 2021-07-13 07:44 | Outpatient (BNVA) | payer MEDICAID, SELFPAY ==
[2021-07-06 09:53] VITALS: BP 143/84; BMI 33.8
== END ==
PROVIDERS: PCP Nurse Practitioner Family; Visit Provider Counselor Professional
DX: F43.12 Post-traumatic stress disorder, chronic (principal); F33.1 Major depressive disorder, recurrent, moderate
CPT/HCPCS: 90834; 83036

== ENCOUNTER → 2021-07-27 11:14 | Outpatient (BNVA) | payer MEDICAID, SELFPAY ==
[2021-07-06 09:53] VITALS: BP 143/84; BMI 33.8
== END ==
PROVIDERS: PCP Nurse Practitioner Family; Visit Provider Surgery
DX: Z20.822 Contact with and (suspected) exposure to COVID-19 (principal)
CPT/HCPCS: 87635

== ENCOUNTER 2021-08-04 07:15 | Day surgery (SDC) | payer MEDICAID, SELFPAY ==
[2021-07-06 09:53] VITALS: BP 143/84; BMI 33.8
[2021-08-02 10:31] VITALS: BMI 32.9
--- NOTE | 2021-08-04 07:33 | ANES.PREANE2 ---
Pre-Anesthetic Assessment Height/Weight: Height 1.57 m Weight 81.647 kg Preop Diagnosis: diagnostic Operation Date: 08/04/21 09:00 Proposed Procedures p Colonoscopy 90455 Z12.11(Not Applicable) - Eddie Arriaga MD Familial anesthetic complications: None Was Beta Kusum taken within 24 hours: N/A Was Clonidine taken within 24 hours: N/A Social Tobacco and No alcohol Exam alert, oriented x 3 and regular rate & rhythm rhonchi Airway Submandibular: within normal limits Cervical ROM: within normal limits Mallampati: Class II Pulmonary Chronic Obstructive Pulmonary Disease and Sleep Apnea Metabolic Diabetes Mellitus and Hyperlipidemia [facility] Lower Back Pain and Osteoarthritis/DJD Neuropsych Anxiety and Depression Chronic pain/opioid Anesthetic Plan ASA status: 3 Anesthesia: MAC Risk of > 500 ml blood loss (7ml/kg in children): No Medications/Allergies Home Medications Medication Instructions Recorded Confirmed Last Taken Type albuterol sulfate 90 mcg/actuation 2 puff INHALATION .every 4 hours 07/08/19 08/03/21 Unknown History aerosol inhaler (ProAir HFA) PRN gm lancets 28 gauge (FreeStyle #100 each 11/27/19 08/03/21 Unknown Rx Lancets) triamterene 37.5 1 tab PO QAM #30 tab 09/10/20 08/03/21 Unknown Rx mg-hydrochlorothiazide 25 mg tablet glipizide 10 mg tablet 10 mg PO BID #180 tab 12/31/20 08/03/21 Unknown Rx metformin 1,000 mg tablet 1,000 mg PO BID #180 tab 12/31/20 08/03/21 Unknown Rx cane #1 ea 01/26/21 08/03/21 Unknown Rx alcohol swabs (Alcohol Pads) 1 pad TOPICAL TID #300 ea 04/27/21 08/03/21 Unknown Rx lancets 33 gauge (OneTouch Delica See Rx Instructions .ROUTE 04/27/21 08/03/21 Unknown Rx Plus Lancet) .COMPLEX #100 ea cetirizine 10 mg tablet See Rx Instructions .ROUTE 05/25/21 08/03/21 Unknown Rx .COMPLEX #90 tab duloxetine 60 mg capsule,delayed 60 mg PO DAILY #30 cap 05/27/21 08/03/21 Unknown Rx release (Cymbalta) atorvastatin 40 mg tablet 40 mg PO DAILY #90 tab 06/11/21 08/03/21 Unknown Rx gabapentin 600 mg tablet 600 mg PO TID #90 tab 06/16/21 08/03/21 Unknown Rx hydrocodone 5 mg-acetaminophen 325 1 tab PO TID PRN 30 Days #90 tab 06/16/21 08/03/21 Unknown Rx mg tablet trazodone 50 mg tablet 50 mg PO .HS #30 tab 06/24/21 08/03/21 Unknown Rx blood sugar diagnostic (OneTouch #25 07/27/21 08/03/21 Unknown Rx Verio test strips) meloxicam 15 mg tablet 15 mg PO DAILY 08/03/21 08/03/21 Unknown History Allergies Allergy/AdvReac Type Severity Reaction Status Date / Time hydromorphone Allergy Unknown Verified 08/02/21 10:24 [facility] Anesthesia Medical History (Updated 07/20/21 @ 15:40 by Eddie Arriaga MD) Chronic post-traumatic stress disorder Chronic right SI joint pain Intervertebral disc disorders with radiculopathy, lumbosacral region Major depressive disorder, recurrent, moderate Meningitis spinal At age 26 Post-traumatic stress disorder, unspecified Psychiatric care Surgical History (Updated 07/20/21 @ 13:29 by Eddie Arriaga MD) History of carpal tunnel surgery 2005 [place] History of umbilical hernia repair Hx of section 1990 [place] 1993 [facility] [place] of cholecystectomy laparascopic procedure 1999 Hx of hernia repair 08/07/19 Dr. Belcher [facility] [place] Hx of hysterectomy total laparoscopic hysterectomy, bilat salpingectomy and extensive lysis of omental adhesions on 03/22/[address] [place] [facility] [place] and abdominal pain. Postopertavely pathology showed no significant histopathological alteration in cervix, peritoneum, endometrium, myometrium and bilat fallopian tubes Hx of rhinoplasty 2000 in [place] Hx of tonsillectomy 2000 [place] Hx of tubal ligation 1993 [place] at time of second Family History Father Heart disease Mother Heart disease Congestive heart failure Sister Cancer cervical cancer Family/Other Cancer colon cancer-maternal uncle Diabetes Family/Other Cancer breast cancer-maternal aunt Stroke Other Chronic post-traumatic stress disorder Social History Smoking and tobacco status: current every day smoker cigarettes Packs smoked per day: 0.5 Years cigarettes smoked: 41 Second hand smoke exposure: Yes Smoking risk assessment/counseling performed?: Yes (Tobacco use, strategies for quitting, pharmacotherapy options available) Tobacco counseling given: other Alcohol intake: never Adopted: No Caregiver/support person: No Lives independently: No Household members: spouse Housing: Other Details: 27 ft travel trailer Marital status: Marital status details: 13 years Number of children: 2 Number of grandchildren: 6 Highest education level completed: 11th Grade service: No Current occupational status: other Details: trying to get disability Pets and animals: Yes Pets & animals: cat(s), dog(s) and farm animals Farm Animals: pigs History of recent travel: No Leisure activites: other Leisure activities details: christiano Sexually active: Yes Current gender identity: Female Lore/Yazdanism: Sikh Special lore needs: No Agree to transfusion: Yes Financial difficulty paying for basics: Hard Female Reproductive History Para: 2 Spontaneous abortions: Yes Data Anesthesia Cardiac Studies: No Data to Display
[2021-08-04 08:06] VITALS: BP 137/80; PULSE 83; RESP 18; TEMP 36; O2SAT 95
[2021-08-04] MEDS: sodium chloride 0.9% 1,000 ML 30 ML IV (08:15)
--- NOTE | 2021-08-04 08:56 | W.PM.OPSFHP ---
Same Day Surgery H&P Indication for Procedure/HPI DATE OF PROCEDURE: August 04, 2021 CHIEF COMPLAINT/INDICATIONFOR SURGICAL PROCEDURE: screening PREOP DIAGNOSIS: diagnostic PLANNED PROCEDURE: Operation Date: 08/04/21 09:00 Proposed Procedures p Colonoscopy 48439 Z12.11(Not Applicable) - Eddie Arriaga MD Medications/Allergies* Home Medications Medication Instructions Recorded Confirmed Type albuterol sulfate 90 mcg/actuation 2 puff INHALATION .every 4 hours 07/08/19 08/04/21 History aerosol inhaler (ProAir HFA) PRN gm meloxicam 15 mg tablet 15 mg PO DAILY 08/03/21 08/04/21 History cetirizine 10 mg tablet 10 mg PO DAILY 08/04/21 08/04/21 History Allergies/Adverse Reactions Allergy/AdvReac Type Severity Reaction Status Date / Time hydromorphone Allergy Unknown Verified 08/04/21 08:05 Current Medications: Generic Name Dose Route Start Last Admin Trade Name Freq PRN Reason Stop Dose Admin Sodium Chloride 1,000 mls @ 30 mls/hr 08/04/21 07:30 08/04/21 08:15 Sodium Chloride 0.9% IV 08/05/21 07:29 30 mls/hr .Q24H RACHEL Administration Pertinent History/Comorbid Conditions* Medical History (Updated 07/20/21 @ 15:40 by Eddie Arriaga MD) Chronic post-traumatic stress disorder Chronic right SI joint pain Intervertebral disc disorders with radiculopathy, lumbosacral region Major depressive disorder, recurrent, moderate Meningitis spinal At age 26 Post-traumatic stress disorder, unspecified Psychiatric care Surgical History (Updated 07/20/21 @ 13:29 by Eddie Arriaga MD) History of carpal tunnel surgery 2005 [place] History of umbilical hernia repair Hx [place] section 1990 [place] Hx of cholecystectomy laparascopic procedure 1999 Hx of hernia repair 08/07/19 Dr. Belcher [facility] [place] Hx of hysterectomy total laparoscopic hysterectomy, bilat salpingectomy and extensive lysis of omental adhesions on 03/22/[address] [place] [facility] [place] and abdominal pain. Postopertavely pathology showed no significant histopathological alteration in cervix, peritoneum, endometrium, myometrium and bilat fallopian tubes Hx of rhinoplasty 2000 in [place] Hx of tonsillectomy 2000 in [place] Hx of tubal ligation 1993 [place] time of second Family History (Updated 05/25/21 @ 09:37 by Gretel Naranjo MS, [facility]) Chronic post-traumatic stress disorder Diabetes Family/Other Congestive heart failure Mother Heart disease Father Mother Cancer Sister cervical cancer Family/Other colon cancer-maternal uncle Family/Other breast cancer-maternal aunt Stroke Family/Other Social History Smoking and tobacco status: current every day smoker cigarettes Packs smoked per day: 0.5 Years cigarettes smoked: 41 Second hand smoke exposure: Yes Smoking risk assessment/counseling performed?: Yes (Tobacco use, strategies for quitting, pharmacotherapy options available) Tobacco counseling given: other Alcohol intake: never Adopted: No Caregiver/support person: No Lives independently: No Household members: spouse Housing: Other Details: 27 ft travel trailer Marital status: Marital status details: 13 years Number of children: 2 Number of grandchildren: 6 Highest education level completed: 11th Grade service: No Current occupational status: other Details: trying to get disability Pets and animals: Yes Pets & animals: cat(s), dog(s) and farm animals Farm Animals: pigs History of recent travel: No Leisure activites: other Leisure activities details: christiano Sexually active: Yes Current gender identity: Female Lore/Zoroastrian: Hindu Special lore needs: No Agree to transfusion: Yes Financial difficulty paying for basics: Hard Pertinent Exam Findings alert, oriented x 3 and regular rate & rhythm Recommendations Surgery/Procedure today Coding Level of Care Code Acute 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
[2021-08-04 09:27] VITALS: BP 145/64; PULSE 73; RESP 16; TEMP 36.3; O2SAT 96
--- NOTE | 2021-08-04 09:30 | ANE.PACU2 ---
Inpatient post-anesthesia follow up: Airway intact: Yes Vital signs: Temperature 96.8 F Pulse Rate 83 Respiratory Rate 18 Blood Pressure 137/80 Pulse Oximetry 95 Oxygen Delivery Me thod Room Air Oxygen Flow Rate Fraction of Inspir ed Oxygen Hydration adequate: Yes Nausea and vomiting: No Pain level: 1 Mental status: Baseline
[2021-08-04 09:40] VITALS: BP 133/73; PULSE 75; RESP 16; O2SAT 94
== END 2021-08-04 09:58 | disposition home or self-care (01) ==
PROVIDERS: PCP Nurse Practitioner Family; Visit Provider Surgery
PROC: 0DJD8ZZ Inspection of Lower Intestinal Tract, Via Natural or Artificial Opening Endoscopic (ICD-10-PCS; CPT 45378; principal; 2021-08-04 09:00)
DX: Z12.11 Encounter for screening for malignant neoplasm of colon (principal); F17.210 Nicotine dependence, cigarettes, uncomplicated; D12.5 Benign neoplasm of sigmoid colon; K64.8 Other hemorrhoids; J44.9 Chronic obstructive pulmonary disease, unspecified; G47.30 Sleep apnea, unspecified; E11.9 Type 2 diabetes mellitus without complications; E78.5 Hyperlipidemia, unspecified; G89.29 Other chronic pain; Z79.891 Long term (current) use of opiate analgesic; Z79.84 Long term (current) use of oral hypoglycemic drugs
CPT/HCPCS: 45380; 88305; J2704; J7030

== ENCOUNTER → 2021-08-06 08:40 | Outpatient (BNVA) | payer MEDICAID, SELFPAY ==
[2021-07-06 09:53] VITALS: BP 143/84; BMI 33.8
== END ==
PROVIDERS: PCP Nurse Practitioner Family; Visit Provider Surgery
DX: Z20.822 Contact with and (suspected) exposure to COVID-19 (principal)
CPT/HCPCS: 87635

== ENCOUNTER 2021-08-12 08:01 | Day surgery (SDC) | payer MEDICAID, SELFPAY ==
[2021-07-06 09:53] VITALS: BP 143/84; BMI 33.8
[2021-08-11 14:24] VITALS: BMI 33.8
[2021-08-12] VITALS (13 sets, daily range): BP systolic 142–172; BP diastolic 61–94; PULSE 70–84; RESP 17–20; TEMP 36.2–36.9; O2SAT 92–100
--- NOTE | 2021-08-12 08:24 | W.PM.OPSFHP ---
Same Day Surgery H&P Indication for Procedure/HPI DATE OF PROCEDURE: August 12, 2021 CHIEF COMPLAINT/INDICATIONFOR SURGICAL PROCEDURE: umbilical hernia PREOP DIAGNOSIS: Recurrent umbilical hernia PLANNED PROCEDURE: Operation Date: 08/12/21 09:50 Proposed Procedures p Laparoscopic poss Open Umbilical Hernia Repair w/ Mesh K42.9 [id number](Not Applicable) - Eddie Arriaga MD Medications/Allergies* Home Medications Medication Instructions Recorded Confirmed Type albuterol sulfate 90 mcg/actuation 2 puff INHALATION .every 4 hours 07/08/19 08/11/21 History aerosol inhaler (ProAir HFA) PRN gm meloxicam 15 mg tablet 15 mg PO DAILY 08/03/21 08/11/21 History cetirizine 10 mg tablet 10 mg PO DAILY 08/04/21 08/11/21 History Allergies/Adverse Reactions Allergy/AdvReac Type Severity Reaction Status Date / Time hydromorphone Allergy Unknown Verified 08/04/21 08:05 Pertinent History/Comorbid Conditions* Medical History (Updated 07/20/21 @ 15:40 by Eddie Arriaga MD) Chronic post-traumatic stress disorder Chronic right SI joint pain Intervertebral disc disorders with radiculopathy, lumbosacral region Major depressive disorder, recurrent, moderate Meningitis spinal At age 26 Post-traumatic stress disorder, unspecified Psychiatric care Surgical History (Updated 08/04/21 @ 09:32 by Eddie Arriaga MD) History of carpal tunnel surgery 2005 [place] History of umbilical hernia repair [place] 1990 [place] Hx of cholecystectomy laparascopic procedure 1999 Hx of hernia repair 08/07/19 Dr. Belcher [facility] [place] Hx of hysterectomy total laparoscopic hysterectomy, bilat salpingectomy and extensive lysis of omental adhesions on 03/22/[address] Marr at [facility] [place] [facility] for irrecular bleeding and abdominal pain. Postopertavely pathology showed no significant histopathological alteration in cervix, peritoneum, endometrium, myometrium and bilat fallopian tubes Hx of rhinoplasty 2000 in [place] Hx of [place]illectomy 2000 [place] Hx of tubal ligation [place] time of second Status post colonoscopy with polypectomy (08/04/21) Family History (Updated 05/25/21 @ 09:37 by Gretel Naranjo, MS, [facility]) Chronic post-traumatic stress disorder Diabetes Family/Other Congestive heart failure Mother Heart disease Father Mother Cancer Sister cervical cancer Family/Other colon cancer-maternal uncle Family/Other breast cancer-maternal aunt Stroke Family/Other Social History Smoking and tobacco status: current every day smoker cigarettes Packs smoked per day: 0.5 Years cigarettes smoked: 41 Second hand smoke exposure: Yes Smoking risk assessment/counseling performed?: Yes (Tobacco use, strategies for quitting, pharmacotherapy options available) Tobacco counseling given: other Alcohol intake: never Adopted: No Caregiver/support person: No Lives independently: No Household members: spouse Housing: Other Details: 27 ft travel trailer Marital status: Marital status details: 11 years Number of children: 2 Number of grandchildren: 6 Highest education level completed: 11th Grade service: No Current occupational status: other Details: trying to get disability Pets and animals: Yes Pets & animals: cat(s), dog(s) and farm animals Farm Animals: pigs History of recent travel: No Leisure activites: other Leisure activities details: christiano Sexually active: Yes Current gender identity: Female Lore/Holiness: Mosque Special lore needs: No Agree to transfusion: Yes Financial difficulty paying for basics: Hard Pertinent Exam Findings alert, oriented x 3 and regular rate & rhythm Recommendations Surgery/Procedure today Coding Level of Care Code Acute Activity Therapist for Anila Murray
[2021-08-12] MEDS: sodium chloride 0.9% 1,000 ML 30 ML IV (08:47)
[2021-08-12 08:56] LABS: Glucose Point of Care 188 mg/dL (70-110)
--- NOTE | 2021-08-12 09:41 | ANES.PREANE2 ---
Pre-Anesthetic Assessment Height/Weight: Height 1.57 m Weight 83.915 kg Temp Pulse Resp BP Pulse Ox 97.1 F L 70 18 162/92 96 08/12/21 08:30 08/12/21 08:30 08/12/21 08:30 08/12/21 08:30 08/12/21 08:30 Preop Diagnosis: Recurrent umbilical hernia Operation Date: 08/12/21 09:50 Proposed Procedures p Laparoscopic poss Open Umbilical Hernia Repair w/ Mesh K42.9 [id number](Not Applicable) - Eddie Arriaga MD Familial anesthetic complications: None Was Beta Kusum taken within 24 hours: N/A Was Clonidine taken within 24 hours: N/A Last intake: Intake Last Liquid Date 08/12/21 Last Liquid Time 02:00 Last Solid Date 08/11/21 Last Solid Time 19:30 Social Tobacco and No alcohol Exam alert, oriented x 3 and regular rate & rhythm rhonchi Airway Submandibular: within normal limits Cervical ROM: within normal limits Mallampati: Class II Dentition: chipped (lower arch poor dentition) and false (upper) Pulmonary Chronic Obstructive Pulmonary Disease and Sleep Apnea CV/HEM Hypertension Metabolic Diabetes Mellitus, Hyperlipidemia and Morbid Obesity [facility] Lower Back Pain Chronic pain/opioid Neuropsych Anxiety and Depression Anesthetic Plan ASA status: 3 Anesthesia: General Risk of > 500 ml blood loss (7ml/kg in children): No Medications/Allergies Home Medications Medication Instructions Recorded Confirmed Last Taken Type albuterol sulfate 90 mcg/actuation 2 puff INHALATION .every 4 hours 07/08/19 08/11/21 09/16/20 History aerosol inhaler (ProAir HFA) PRN gm lancets 28 gauge (FreeStyle #100 each 11/27/19 08/03/21 Unknown Rx Lancets) triamterene 37.5 1 tab PO QAM #30 tab 09/10/20 08/12/21 08/10/21 Rx mg-hydrochlorothiazide 25 mg tablet glipizide 10 mg tablet 10 mg PO BID #180 tab 12/31/20 08/12/21 08/10/21 Rx metformin 1,000 mg tablet 1,000 mg PO BID #180 tab 12/31/20 08/12/21 08/10/21 Rx cane #1 ea 01/26/21 08/03/21 Unknown Rx alcohol swabs (Alcohol Pads) 1 pad TOPICAL TID #300 ea 04/27/21 08/11/21 Unknown Rx lancets 33 gauge (OneTouch Delica See Rx Instructions .ROUTE 04/27/21 08/11/21 Unknown Rx Plus Lancet) .COMPLEX #100 ea duloxetine 60 mg capsule,delayed 60 mg PO DAILY #30 cap 05/27/21 08/12/21 08/10/21 Rx release (Cymbalta) atorvastatin 40 mg tablet 40 mg PO DAILY #90 tab 06/11/21 08/12/21 08/10/21 Rx gabapentin 600 mg tablet 600 mg PO TID #90 tab 06/16/21 08/12/21 08/10/21 Rx hydrocodone 5 mg-acetaminophen 325 1 tab PO TID PRN 30 Days #90 tab 06/16/21 08/12/21 08/10/21 Rx mg tablet trazodone 50 mg tablet 50 mg PO .HS #30 tab 06/24/21 08/12/21 08/10/21 Rx meloxicam 15 mg tablet 15 mg PO DAILY 08/03/21 08/12/21 08/10/21 History cetirizine 10 mg tablet 10 mg PO DAILY 08/04/21 08/12/21 08/10/21 History blood sugar diagnostic (OneTouch #100 ea 08/06/21 Unknown Rx Verio test strips) Allergies Allergy/AdvReac Type Severity Reaction Status Date / Time hydromorphone Allergy Unknown Verified 08/12/21 08:27 Current Medications Generic Name Dose Route Start Last Admin Trade Name Freq PRN Reason Stop Dose Admin Sodium Chloride 1,000 mls @ 30 mls/hr 08/12/21 08:30 08/12/21 08:47 Sodium Chloride 0.9% IV 08/13/21 08:29 30 mls/hr .Q24H RACHEL Administration [facility] Anesthesia Medical History (Updated 07/20/21 @ 15:40 by Eddie Arriaga MD) Chronic post-traumatic stress disorder Chronic right SI joint pain Intervertebral disc disorders with radiculopathy, lumbosacral region Major depressive disorder, recurrent, moderate Meningitis spinal At age 26 Post-traumatic stress disorder, unspecified Psychiatric care Surgical History History of carpal tunnel surgery 2005 [place] History of umbilical hernia repair [place] section 1990 [place] Hx of cholecystectomy laparascopic procedure 1999 Hx of hernia repair 08/07/19 Dr. Belcher [facility] [place] Hx of hysterectomy total laparoscopic hysterectomy, bilat salpingectomy and extensive lysis of omental adhesions on 03/22/[address] Marr [place] [facility] [place] for irrecular bleeding and abdominal pain. Postopertavely pathology showed no significant histopathological alteration in cervix, peritoneum, endometrium, myometrium and bilat fallopian tubes Hx of rhinoplasty 2000 in [place] Hx of tonsillectomy 2000 [place] Hx of tubal ligation 1993 [place] second Status post colonoscopy with polypectomy (08/04/21) Family History Father Heart disease Mother Heart disease Congestive heart failure Sister Cancer cervical cancer Family/Other Cancer colon cancer-maternal uncle Diabetes Family/Other Cancer breast cancer-maternal aunt Stroke Other Chronic post-traumatic stress disorder Social History Smoking and tobacco status: current every day smoker cigarettes Packs smoked per day: 0.5 Years cigarettes smoked: 41 Second hand smoke exposure: Yes Smoking risk assessment/counseling performed?: Yes (Tobacco use, strategies for quitting, pharmacotherapy options available) Tobacco counseling given: other Alcohol intake: never Adopted: No Caregiver/support person: No Lives independently: No Household members: spouse Housing: Other Details: 27 ft travel [facility] Marital status: Marital status details: 13 years Number of children: 2 Number of grandchildren: 6 Highest education level completed: 11th Grade service: No Current occupational status: other Details: trying to get disability Pets and animals: Yes Pets & animals: cat(s), dog(s) and farm animals Farm Animals: pigs History of recent travel: No Leisure activites: other Leisure activities details: christiano Sexually active: Yes Current gender identity: Female Lore/Faith: Voodoo Special lore needs: No Agree to transfusion: Yes Financial difficulty paying for basics: Hard Female Reproductive History Para: 2 Spontaneous abortions: Yes Data Anesthesia Cardiac Studies: No Data to Display
--- NOTE | 2021-08-12 10:07 | P.OP_ITS ---
Operative Report Date of procedure: August 12, 2021 Pre-op diagnosis: Recurrent incarcerated umbilical hernia Post-op diagnosis: Recurrent incarcerated umbilical hernia containing omentum measuring 11 x 7 cm Procedure done: Laparoscopic repair of recurrent incarcerated umbilical hernia with Ventralight ST mesh measuring 20 x 15 cm Pathology: none sent Surgeon: Eddie Arriaga Anesthesia: General Estimated blood loss (mL): 25 Condition: stable Disposition: PACU Procedure: The patient was taken to the Operating Room and was intubated under general anesthesia after the antibiotic had been administered. The abdomen was prepped and draped in a sterile manner. Using a 15 blade, a 2-cm incision was made in the left upper quadrant in the anterior axillary line and pneumoperitoneum was created using Verres needle. A 10 mm Tracy port was placed and 15 mm of pneumoperitoneum was created after a 10 mm 30? scope had been introduced. 5 mm port was placed at the level of the umbilicus and in the left lower quadrant under direct visualization. Using a combination of electrocautery and scissors the peritoneum in the midline was taken down and the omental fat within the hernial sac was reduced. The dissection was carried superiorly to take down the falciform ligament for creating space for placement of mesh. spinal needle was introduced through the abdominal wall and the edges of the hernial defect were marked and measured 11 x 7 cm. A 4 cm margin was marked on the abdominal wall on the outer edge of the hernial defect. 20 x [address] mesh was awa ected and 4 separate 2-0 [place]-Selvin sutures were placed at the 4 corners of the mesh. Grannie needle was passed through the stab incisions and used to grasp the free ends of the [place]-Selvin sutures which were then used to pull the mesh up against the abdominal wall; 5 mm SecurStraps were placed 1 cm apart along the edge of the mesh to hold it against the abdominal wall. At the end of this, it was noted that the mesh was well positioned over the hernial defect. 20 cc of saline mixed with 20cc of Exparel mixed with 20cc of 0.5% Marcaine was infiltrated in the midclavicular line bilaterally under laparoscopic visualization for a TAP block. All ports were removed under direct visualization and there was no bleeding noted from the port sites. The external oblique aponeurosis was approximated at LUQ port site using figure of eight 0 Vicryl suture. The subcutaneous tissue was approximated using 3-0 Vicryl sutures. The skin at all 3 port sites was closed using subcuticular 4-0 Monocryl suture. The stab incisions and the port sites were covered with Dermabond. Abdominal binder was placed at the end of the procedure and the patient was extubated and transferred to recovery room in stable condition.
[2021-08-12] MEDS: ondansetron 2 mg/ML SDV 2 mL 4 MG IVP ×2 (10:49→11:58)
[2021-08-12] MEDS: oxyCODONE-APAP 5-325 mg Tablet 1 TAB PO (11:48)
== END 2021-08-12 12:07 | disposition home or self-care (01) ==
PROVIDERS: PCP Nurse Practitioner Family; Visit Provider Surgery
PROC: 0WQF4ZZ Repair Abdominal Wall, Percutaneous Endoscopic Approach (ICD-10-PCS; CPT 49653; principal; 2021-08-12 09:40)
DX: K42.0 Umbilical hernia with obstruction, without gangrene (principal); J44.9 Chronic obstructive pulmonary disease, unspecified; G47.30 Sleep apnea, unspecified; E11.9 Type 2 diabetes mellitus without complications; E78.5 Hyperlipidemia, unspecified; E66.01 Morbid (severe) obesity due to excess calories; F17.210 Nicotine dependence, cigarettes, uncomplicated
CPT/HCPCS: 49653; 36416; 82962; 96372; C1718; C9290; J0690; J1100; J1885; J2270; J2405; J2704; J3010; J3490; J7030

== ENCOUNTER → 2021-09-28 13:02 | Outpatient (BNVA) | payer MEDICAID, SELFPAY ==
[2021-07-06 09:53] VITALS: BP 143/84; BMI 33.8
== END ==
PROVIDERS: PCP Nurse Practitioner Family; Visit Provider Surgery
DX: Z98.890 Other specified postprocedural states (principal); Z87.19 Personal history of other diseases of the digestive system

== ENCOUNTER → 2021-10-11 09:51 | Outpatient (BNVA) | payer MEDICAID, SELFPAY ==
[2021-07-06 09:53] VITALS: BP 143/84; BMI 33.8
== END ==
PROVIDERS: PCP Nurse Practitioner Family; Visit Provider Nurse Practitioner Family
DX: E11.69 Type 2 diabetes mellitus with other specified complication (principal); E78.5 Hyperlipidemia, unspecified
CPT/HCPCS: 80053; 80061; 83036; 84443; 85025

== ENCOUNTER → 2021-10-14 15:01 | Outpatient (BNVA) | payer MEDICAID, SELFPAY ==
[2021-07-06 09:53] VITALS: BP 143/84; BMI 33.8
== END ==
PROVIDERS: PCP Nurse Practitioner Family; Visit Provider Nurse Practitioner
DX: F33.1 Major depressive disorder, recurrent, moderate (principal); F17.210 Nicotine dependence, cigarettes, uncomplicated; Z59.6 Low income; Z59.1 Inadequate housing
CPT/HCPCS: 99214

== ENCOUNTER → 2022-01-25 13:33 | Outpatient (BNVA) | payer MEDICAID, SELFPAY ==
[2021-07-06 09:53] VITALS: BP 143/84; BMI 33.8
== END ==
PROVIDERS: PCP Nurse Practitioner Family; Visit Provider Nurse Practitioner Family
DX: E11.9 Type 2 diabetes mellitus without complications (principal)
CPT/HCPCS: 83036

== ENCOUNTER 2022-02-11 06:00 | Outpatient (RCR) | payer MEDICAID, SELFPAY ==
[2021-07-06 09:53] VITALS: BP 143/84; BMI 33.8
== END 2022-02-23 23:59 | disposition home or self-care (01) ==
LOC: GPT 06:00
PROVIDERS: PCP Nurse Practitioner Family; Visit Provider Nurse Practitioner Family
DX: M54.59 Other low back pain (principal); M46.1 Sacroiliitis, not elsewhere classified
CPT/HCPCS: 97110; 97161

== ENCOUNTER 2022-02-24 06:00 | Outpatient (RCR) | payer MEDICAID, SELFPAY ==
[2021-07-06 09:53] VITALS: BP 143/84; BMI 33.8
== END 2022-03-25 23:59 | disposition home or self-care (01) ==
LOC: GPT 06:00
PROVIDERS: PCP Nurse Practitioner Family; Visit Provider Nurse Practitioner Family
DX: M54.50 Low back pain, unspecified (principal); M46.1 Sacroiliitis, not elsewhere classified
CPT/HCPCS: 97110; 97164

== ENCOUNTER 2022-03-26 06:00 | Outpatient (RCR) | payer MEDICAID, SELFPAY ==
[2022-03-21 09:39] VITALS: BP 143/84; BMI 33.8
== END 2022-04-25 23:59 | disposition home or self-care (01) ==
LOC: GPT 06:00
PROVIDERS: PCP Nurse Practitioner Family; Visit Provider Nurse Practitioner Family
DX: M53.3 Sacrococcygeal disorders, not elsewhere classified (principal); M54.9 Dorsalgia, unspecified; G89.29 Other chronic pain
CPT/HCPCS: 97110

== ENCOUNTER → 2022-05-20 10:00 | Outpatient (BNVA) | payer MEDICAID, SELFPAY ==
[2022-05-20 09:54] VITALS: BP 143/84; BMI 33.8
== END ==
PROVIDERS: PCP Nurse Practitioner Family
DX: M79.641 Pain in right hand (principal); W22.8XXA Striking against or struck by other objects, initial encounter
CPT/HCPCS: 73130

== ENCOUNTER 2022-05-30 11:15 | Outpatient (CLI) | payer MEDICAID, SELFPAY ==
[2022-05-20 09:54] VITALS: BP 143/84; BMI 33.8
--- NOTE | 2022-05-30 11:22 | XR_ITS ---
WS: [id number] EXAMINATION: XR lumbar spine 2-3V* [id number] L-SPINE : 3 views REASON FOR EXAM: M54.50 - Low back pain, unspecified COMPARISON: 02/15/2018 ORDER DATE: 05/30/2022 11:38 AM FINDINGS: Very mild retrolisthesis of L2, L3 and L4. As noted unchanged compared with the prior exam. Mild degenerative osteophytes are present at each level. Minor atherosclerotic aortic calcification i s seen. XR/XR lumbar spine 2-3V* [id number] IMPRESSION: No significant interval change with minor retrolisthesis as noted above and min or degenerative disc changes.
--- NOTE | 2022-05-30 11:22 | XR_ITS ---
WS: [id number] EXAMINATION: XR hip LT 2-3V wo/w pel* [id number] REASON FOR EXAM: M54.50 - Low back pain, unspecified COMPARISON: None available. ORDER DATE: 05/30/2022 11:38 AM TECHNIQUE: Frontal internal/external rotation views of the left hip were obtained. X-RAY FINDINGS: There are no fractures or dislocations. Normal motion with internal/external rotation is present. No degenerative changes. XR/XR hip LT 2-3V wo/w pel* [id number] IMPRESSION: 1. No fractures or dislocations of the left hip. 2. Normal motion with internal/external rotation.
--- NOTE | 2022-05-30 11:22 | XR_ITS ---
WS: [email or web address] EXAMINATION: XR thoracic spine 3V* [id number] REASON FOR EXAM: M54.50 - Low back pain, unspecified COMPARISON: None available. ORDER DATE: 05/30/2022 11:38 AM FINDINGS: Generalized degenerative changes and osteoarthritis are present in the dorsal spine including mild di sc narrowing. No acute compression change or signs of osteolytic or osteoblastic process. XR/XR thoracic spine 3V* [id number] IMPRESSION: Osteoarthritis.
== END 2022-05-30 11:16 | disposition home or self-care (01) ==
LOC: RAD 11:16
PROVIDERS: PCP Nurse Practitioner Family; Visit Provider Nurse Practitioner Family
DX: G89.29 Other chronic pain (principal); M51.16 Intervertebral disc disorders with radiculopathy, lumbar region; M47.816 Spondylosis without myelopathy or radiculopathy, lumbar region; M79.604 Pain in right leg; F17.210 Nicotine dependence, cigarettes, uncomplicated
CPT/HCPCS: 72072; 72100; 73502; 99204

== ENCOUNTER → 2022-06-21 12:09 | Outpatient (BNVA) | payer OTHER, SELFPAY ==
[2022-05-20 09:54] VITALS: BP 143/84; BMI 33.8
== END ==
PROVIDERS: PCP Nurse Practitioner Family; Visit Provider Nurse Practitioner
DX: F43.12 Post-traumatic stress disorder, chronic (principal)
CPT/HCPCS: 80061; 83036

== ENCOUNTER → 2022-06-28 13:56 | Outpatient (BNVA) | payer MEDICAID, SELFPAY ==
[2022-05-20 09:54] VITALS: BP 143/84; BMI 33.8
== END ==
PROVIDERS: PCP Nurse Practitioner Family; Visit Provider Anesthesiology Pain Medicine
DX: G89.29 Other chronic pain (principal); M54.16 Radiculopathy, lumbar region; E11.9 Type 2 diabetes mellitus without complications; Z79.84 Long term (current) use of oral hypoglycemic drugs
CPT/HCPCS: 36416; 64483; 64484; 82962; J1100; J3490

== ENCOUNTER → 2022-07-13 09:13 | Outpatient (BNVA) | payer MEDICAID, SELFPAY ==
[2022-05-20 09:54] VITALS: BP 143/84; BMI 33.8
== END ==
PROVIDERS: PCP Nurse Practitioner Family; Visit Provider Anesthesiology Pain Medicine
DX: G89.29 Other chronic pain (principal); M47.816 Spondylosis without myelopathy or radiculopathy, lumbar region; M51.16 Intervertebral disc disorders with radiculopathy, lumbar region; M79.604 Pain in right leg
CPT/HCPCS: 99214

== ENCOUNTER 2022-08-04 16:00 | Outpatient (CLI) | payer MEDICAID, SELFPAY ==
[2022-07-14 13:17] VITALS: BP 125/82; BMI 32.0
--- NOTE | 2022-08-04 16:04 | MM_ITS ---
WS: [id number] BILATERAL 3D TOMOSYNTHESIS DIGITAL SCREENING MAMMOGRAPHY WITH CAD CLINICAL INFORMATION: SCREEN HISTORY: Screening mammogram. No current complaints. COMPARISON: November 16, 2020 TECHNIQUE: Bilateral CC and MLO views. FINDINGS: Scattered fibroglandular densities bilaterally. No suspicious focal mass, asymmetry, calcifications, or architectural distortion. No evidence of malignancy. Lucent centered calcification LEFT breast. St able ovoid asymmetric density inner RIGHT breast. MM/[place] [id number] IMPRESSION: BI-RADS: 2-Benign FOLLOW UP: 1 Year Follow-up Recommend return to annual screening mammography.
== END 2022-08-04 16:01 | disposition home or self-care (01) ==
LOC: RAD 16:00
PROVIDERS: PCP Nurse Practitioner Family; Visit Provider Nurse Practitioner Family
DX: Z12.31 Encounter for screening mammogram for malignant neoplasm of breast (principal); M47.816 Spondylosis without myelopathy or radiculopathy, lumbar region
CPT/HCPCS: 64493; 64494; 64495; 77063; 77067; J3490

== ENCOUNTER 2022-08-05 07:53 | Outpatient (CLI) | payer MEDICAID, SELFPAY ==
[2022-05-20 09:54] VITALS: BP 143/84; BMI 33.8
[2022-07-14 13:17] VITALS: BP 125/82; BMI 32.0
--- NOTE | 2022-08-05 08:00 | MR_ITS ---
WS: [id number] MRI LUMBAR SPINE NONCONTRAST HISTORY: M51.16 - Intervertebral disc disorders with radiculopathy..., Bilateral lower extremity pain . COMPARISON: 02/15/2018 TECHNIQUE: Sagittal and axial multisequence imaging is submitted. Retrolisthesis of L2, L3 and L4 by 4 mm. Very small amount of reactive marrow edema along the posteri or endplates of L3 and L4. No fractures. Disc spaces are mildly narrowed and desiccated. Hypertrophic endplate vertebral body osteophytes. Conus terminates normally at L1-2 disc level. L1-L2: Mild disc bulging with a small disc protrusion. Ligamentum flavum and facet arthritis. L2-L3: Moderate annular disc bulge with a central disc protrusion which extends just slightly caudad to the disc space. Ligamentum flavum and facet joint arthritis. Mild central, bilateral subarticular recess and foraminal stenosis. Mildly progressed since the prior study. L3-L4: Moderate annular disc bulging encroaching and deforming the ventral thecal sac. Disc narrows t he subarticular recesses and the foramina. There is an additional LEFT foraminal disc protrusion whic h is narrowing the proximal foramen. Not significantly contacting the exiting LEFT L3 nerve root. Mod erate central and subarticular recess encroachment and mild foraminal narrowing. L4-L5: Moderate annular disc bulging with ligamentum flavum and facet arthritis. Most significant fac et arthritis on the RIGHT. Moderate central, bilateral subarticular recess and foraminal stenosis. Th ere is disc contacting the RIGHT exiting L4 nerve root. Significant encroachment on the traversing L5 nerve roots. Progression of stenosis since the prior study. L5-S1: Mild disc bulging. Mild LEFT foraminal stenosis. Bilateral facet joint arthritis. Again noted is incompletely visualized cystic mass in the LEFT adnexa which measures 5.3 x 4.3 cm. MR/MR lumbar spine wo con* [id number] IMPRESSION: 1. Progression of degenerative disc disease and stenosis throughout the lumbar spine since 02/15/2018. 2. Moderate central, bilateral subarticular recess and foraminal stenosis at L 4-5. Disc contacts the traversing L5 nerve roots and also the RIGHT exiting L4 nerve root. 3. Mild central, bilateral subarticular recess and foraminal stenosis at L2-3. 4. Moderate central, bilateral subarticular recess and mild foraminal stenosis at L3-4. Most significant encroachment upon the traversing L4 nerve roots. 5. Mildly complex LEFT adnexal cyst. Does appear to have increased in size sin ce prior ultrasound from 2018. Consider reevaluation by transvaginal pelvic sabrina ging.
== END 2022-08-05 07:54 | disposition home or self-care (01) ==
LOC: RAD 07:54
PROVIDERS: PCP Nurse Practitioner Family; Visit Provider Anesthesiology Pain Medicine
DX: M51.16 Intervertebral disc disorders with radiculopathy, lumbar region (principal); M79.605 Pain in left leg; M79.604 Pain in right leg; M51.36 Other intervertebral disc degeneration, lumbar region; M48.061 Spinal stenosis, lumbar region without neurogenic claudication
CPT/HCPCS: 72148

== ENCOUNTER → 2022-08-18 09:18 | Outpatient (BNVA) | payer MEDICAID, SELFPAY ==
[2022-07-14 13:17] VITALS: BP 125/82; BMI 32.0
== END ==
PROVIDERS: PCP Nurse Practitioner Family; Visit Provider Anesthesiology Pain Medicine
DX: G89.29 Other chronic pain (principal); M47.816 Spondylosis without myelopathy or radiculopathy, lumbar region; M51.16 Intervertebral disc disorders with radiculopathy, lumbar region
CPT/HCPCS: 99214

== ENCOUNTER → 2022-09-06 11:51 | Outpatient (BNVA) | payer MEDICAID, SELFPAY ==
[2022-08-19 16:48] VITALS: BP 125/82; BMI 32.0
== END ==
PROVIDERS: PCP Nurse Practitioner Family; Visit Provider Nurse Practitioner Family
DX: M79.675 Pain in left toe(s) (principal); M79.672 Pain in left foot
CPT/HCPCS: 73630

== ENCOUNTER → 2022-09-12 14:44 | Outpatient (BNVA) | payer MEDICAID, SELFPAY ==
[2022-08-19 16:48] VITALS: BP 125/82; BMI 32.0
== END ==
PROVIDERS: PCP Nurse Practitioner Family; Visit Provider Anesthesiology Pain Medicine
DX: G89.29 Other chronic pain (principal); M47.816 Spondylosis without myelopathy or radiculopathy, lumbar region
CPT/HCPCS: 64635; 64636; J1030

== ENCOUNTER → 2022-09-28 08:45 | Outpatient (BNVA) | payer MEDICAID, SELFPAY ==
[2022-08-19 16:48] VITALS: BP 125/82; BMI 32.0
== END ==
PROVIDERS: PCP Nurse Practitioner Family; Visit Provider Nurse Practitioner Family
DX: E11.9 Type 2 diabetes mellitus without complications (principal)
CPT/HCPCS: 83036

== ENCOUNTER → 2022-09-29 10:27 | Outpatient (BNVA) | payer MEDICAID, SELFPAY ==
[2022-08-19 16:48] VITALS: BP 125/82; BMI 32.0
== END ==
PROVIDERS: PCP Nurse Practitioner Family; Visit Provider Anesthesiology Pain Medicine
DX: G89.29 Other chronic pain (principal); M47.816 Spondylosis without myelopathy or radiculopathy, lumbar region; M51.16 Intervertebral disc disorders with radiculopathy, lumbar region; M79.672 Pain in left foot
CPT/HCPCS: 99214

== ENCOUNTER → 2022-10-05 14:53 | Outpatient (BNVA) | payer MEDICAID, SELFPAY ==
[2022-08-19 16:48] VITALS: BP 125/82; BMI 32.0
== END ==
PROVIDERS: PCP Nurse Practitioner Family; Visit Provider Podiatrist Foot & Ankle Surgery
DX: G57.62 Lesion of plantar nerve, left lower limb (principal)
CPT/HCPCS: 99203

== ENCOUNTER → 2022-10-19 15:16 | Outpatient (BNVA) | payer MEDICAID, SELFPAY ==
[2022-08-19 16:48] VITALS: BP 125/82; BMI 32.0
== END ==
PROVIDERS: PCP Nurse Practitioner Family; Visit Provider Podiatrist Foot & Ankle Surgery
DX: G57.62 Lesion of plantar nerve, left lower limb (principal)
CPT/HCPCS: 64455; 73630; J1100; J3301

== ENCOUNTER → 2022-10-27 13:28 | Outpatient (BNVA) | payer MEDICAID, SELFPAY ==
[2022-10-27 07:44] VITALS: BP 125/82; BMI 32.0
== END ==
PROVIDERS: PCP Nurse Practitioner Family; Visit Provider Anesthesiology Pain Medicine
DX: G89.29 Other chronic pain (principal); M47.816 Spondylosis without myelopathy or radiculopathy, lumbar region
CPT/HCPCS: 64493; 64494; 64495; J3490

== ENCOUNTER → 2022-10-28 16:35 | Outpatient (BNVA) | payer MEDICAID, SELFPAY ==
[2022-10-27 07:44] VITALS: BP 125/82; BMI 32.0
== END ==
PROVIDERS: PCP Nurse Practitioner Family; Visit Provider Nurse Practitioner Family
DX: E78.00 Pure hypercholesterolemia, unspecified (principal); E11.9 Type 2 diabetes mellitus without complications
CPT/HCPCS: 80053; 80061; 82962; 83036; 84443

== ENCOUNTER → 2022-11-16 09:58 | Outpatient (BNVA) | payer MEDICAID, SELFPAY ==
[2022-11-03 10:03] VITALS: BP 125/82; BMI 32.0
== END ==
PROVIDERS: PCP Nurse Practitioner Family; Visit Provider Anesthesiology Pain Medicine
DX: G89.29 Other chronic pain (principal); M47.816 Spondylosis without myelopathy or radiculopathy, lumbar region; M51.16 Intervertebral disc disorders with radiculopathy, lumbar region
CPT/HCPCS: 99214

== ENCOUNTER → 2022-11-23 10:51 | Outpatient (BNVA) | payer MEDICAID, SELFPAY ==
[2022-11-03 10:03] VITALS: BP 125/82; BMI 32.0
== END ==
PROVIDERS: PCP Nurse Practitioner Family; Visit Provider Nurse Practitioner Family
DX: E78.00 Pure hypercholesterolemia, unspecified (principal); H65.91 Unspecified nonsuppurative otitis media, right ear; E11.69 Type 2 diabetes mellitus with other specified complication; E78.5 Hyperlipidemia, unspecified
CPT/HCPCS: 80053; 80061; 84443

== ENCOUNTER → 2022-12-05 14:12 | Outpatient (BNVA) | payer MEDICAID, SELFPAY ==
[2022-11-03 10:03] VITALS: BP 125/82; BMI 32.0
== END ==
PROVIDERS: PCP Nurse Practitioner Family; Visit Provider Anesthesiology Pain Medicine
DX: G89.29 Other chronic pain (principal); M47.816 Spondylosis without myelopathy or radiculopathy, lumbar region; E11.69 Type 2 diabetes mellitus with other specified complication; E78.5 Hyperlipidemia, unspecified
CPT/HCPCS: 64635; 64636; J1030

== ENCOUNTER → 2023-01-18 10:21 | Outpatient (BNVA) | payer MEDICAID, SELFPAY ==
[2022-11-03 10:03] VITALS: BP 125/82; BMI 32.0
== END ==
PROVIDERS: PCP Nurse Practitioner Family; Visit Provider Anesthesiology Pain Medicine
DX: M51.16 Intervertebral disc disorders with radiculopathy, lumbar region (principal); G89.29 Other chronic pain; M47.816 Spondylosis without myelopathy or radiculopathy, lumbar region
CPT/HCPCS: 99214

== ENCOUNTER → 2023-02-14 08:21 | Outpatient (BNVA) | payer MEDICAID, SELFPAY ==
[2022-11-03 10:03] VITALS: BP 125/82; BMI 32.0
== END ==
PROVIDERS: PCP Nurse Practitioner Family; Visit Provider Orthopaedic Surgery
DX: M48.062 Spinal stenosis, lumbar region with neurogenic claudication; M43.16 Spondylolisthesis, lumbar region
CPT/HCPCS: 72110

== ENCOUNTER 2023-02-14 09:24 | Outpatient (CLI) | payer MEDICAID, SELFPAY ==
[2022-11-03 10:03] VITALS: BP 125/82; BMI 32.0
[2023-02-14 09:54] LABS: Add Urine Microscopic? NO; Charge for UA Resulting for Rev
[2023-02-14 10:04] LABS: Hematocrit 48.3 % (37.0-47.0); Hemoglobin 15.6 g/dL (11.5-15.3); Mean Corpuscular HGB Conc 32.3 g/dL (30.0-36.0); Mean Corpuscular Hemoglobin 31.8 pg (28.0-34.0); Mean Corpuscular Volume 98.4 fl (81-99); Mean Platelet Volume 8.8 fL (7.4-10.4); Platelet Count 390 10^3/cmm (130-400); Red Blood Count 4.91 10^6/uL (4.1-5.3); Red Cell Distribution Width 15.1 % (12.1-15.1); White Blood Count 17.6 10^3/uL (4.0-10.0)
[2023-02-14 10:18] LABS: Alanine Aminotransferase 33 U/L (0-33); Albumin Level 4.4 g/dL (3.5-5.2); Alkaline Phosphatase 151 U/L (35-105); Anion Gap 14.9 (5-19); Aspartate Amino Transferase 29 U/L (0-32); Blood Urea Nitrogen 20 mg/dL (6-20); Calcium 9.4 mg/dL (8.5-10.5); Carbon Dioxide 24 mmol/L (22-29); Chloride 103 mmol/L (98-107); Globulin 3.2 g/dL (1.3-4.6); Glomerular Filtration Rate 47.6 mL/min (90-130); Glucose 69 mg/dL (65-115); Osmolality Calculated 287 mOsm/kg (285-295); Potassium 3.9 mmol/L (3.5-5.1); Sodium 138 mmol/L (136-145); Total Bilirubin 0.2 mg/dL (0.15-1.2); Total Protein 7.6 g/dL (6.6-8.7)
[2023-02-14 10:26] LABS: Bilirubin Urine Neg (Negative); Blood Urine Neg (Negative); Glucose Urine UA 4+ (Normal); Ketones Urine Negative (Negative); Leukocyte Esterase Urine Negative (Negative); Nitrate Urine Negative (Negative); Protein Urine Neg (Negative); Specific Gravity, Urine 1.005 (1.005-1.030); Urine Appearance Clear (CLEAR); Urine Color Straw (Yellow); Urobilinogen Urine Norm (Negative); pH Urine 5 (5-7)
[2023-02-14 10:55] LABS: Slide Review Slide Review Perform
[2023-02-14 10:56] LABS: Absolute Neutrophil 10.9 10^3/cmm (1.4-6.5); Absolute Segmented Neutrophil 10.9 10/cmm (1.6-7.1); Eosinophils 6 %; Lymphocytes 18 %; Lymphocytes Absolute 5.1 10^3/cmm (1.2-3.4); Monocytes Absolute 0.5 10^3/cmm (0.1-0.6); Platelet Estimate Normal (Normal); Segmented Neutrophils 62 %; Total Cells Counted 100 (0-100)
== END 2023-02-14 09:25 | disposition home or self-care (01) ==
PROVIDERS: PCP Nurse Practitioner Family; Visit Provider Orthopaedic Surgery
DX: M48.062 Spinal stenosis, lumbar region with neurogenic claudication (principal)
CPT/HCPCS: 36415; 80053; 81003; 85007; 85025

== ENCOUNTER → 2023-02-17 10:50 | Outpatient (BNVA) | payer MEDICAID, SELFPAY ==
[2022-11-03 10:03] VITALS: BP 125/82; BMI 32.0
== END ==
PROVIDERS: PCP Nurse Practitioner Family; Referring Provider Orthopaedic Surgery; Visit Provider Clinical Nurse Specialist Adult Health
DX: Z01.818 Encounter for other preprocedural examination (principal)
CPT/HCPCS: 83036

== ENCOUNTER 2023-02-24 05:33 | Day surgery (SDC) | payer MEDICAID, SELFPAY ==
[2022-11-03 10:03] VITALS: BP 125/82; BMI 32.0
[2023-02-23 09:16] VITALS: BMI 32.0
[2023-02-24] VITALS (11 sets, daily range): BP systolic 115–152; BP diastolic 06–111; PULSE 95–113; RESP 15–26; TEMP 36.1–36.2; O2SAT 90–100
--- NOTE | 2023-02-24 | XR_ITS ---
WS: [email or web address] INTRAOPERATIVE TECHNIQUE: 1 Spot fluoroscopic images for intraoperative purposes. FLUOROSCOPY TIME: 13.0 seconds CLINICAL INFORMATION: SURGICAL PROCEDURE COMPARISON: None. FINDINGS: Localization marker overlying the L4-5 interspace. IMPRESSION: Images obtained for intraoperative purposes.
--- NOTE | 2023-02-24 06:29 | W.PM.OPSUD ---
Surgery/Procedure H&P Update DATE OF PROCEDURE: February 24, 2023 DATE H&P PERFORMED: 02/14/23 H&P UPDATE INFORMATION: I have reviewed H&P completed within last 30 days, I have examined patient prior to procedure and No changes to prior documentation PREOP DIAGNOSIS: Lumbar stenosis with neurogenic claudication PLANNED PROCEDURE: Operation Date: 02/24/23 07:00 Proposed Procedures p Standing on the Right. [id number]: bilateral L4-5 minimally invasive decompression, M48.062: Lumbar stenosis with neurogenic claudicationn(Bilateral) - Alfredo Quinones DO
[2023-02-24 06:31] LABS: Basophils # 0.1 10^3/uL (0.0-0.1); Basophils % 0.6 %; Eosinophils # 0.3 10^3/uL (0.0-0.8); Eosinophils % 2.1 %; Hematocrit 49.6 % (36-47); Lymphocytes # 3.1 10^3/uL (0.8-4.8); Lymphocytes % 20.6 %; Mean Corpuscular HGB Conc 33.5 g/dL (30-55); Mean Corpuscular Hemoglobin 32.4 pg (27-33); Mean Corpuscular Volume 96.9 fl (85-98); Mean Platelet Volume 8.9 fL (7.4-10.4); Monocytes # 0.6 10^3/uL (0.2-0.9); Neutrophils % 71.8 %; Nucleated Red Blood Cells % 0 %; Platelet Count 415 10^3/cmm (157-399); Red Blood Count 5.12 10^6/uL (3.85-5.65); Red Cell Distribution Width 14.7 % (12.1-15.1); White Blood Count 15.17 10^3/uL (3.29-11.43)
[2023-02-24] MEDS: sodium chloride 0.9% 1,000 ML 30 ML IV (06:32)
--- NOTE | 2023-02-24 06:42 | ANES.PREANE2 ---
Pre-Anesthetic Assessment Height/Weight: Height 1.57 m Weight 79.379 kg O2 Del Method Room Air 02/24/23 06:07 Preop Diagnosis: Lumbar stenosis with neurogenic claudication Operation Date: 02/24/23 07:00 Proposed Procedures p Standing on the Right. [address]: bilateral L4-5 minimally invasive decompression, M48.062: Lumbar stenosis with neurogenic claudicationn(Bilateral) - Alfredo Quinones, DO Familial anesthetic complications: None Was Beta Kusum taken within 24 hours: N/A Was Clonidine taken within 24 hours: N/A Last intake: Intake Last Liquid Date 02/23/23 Last Liquid Time 21:00 Last Solid Date 02/23/23 Last Solid Time 21:00 Social Tobacco and No alcohol Exam alert, oriented x 3, clear to auscultation bilaterally and regular rate & rhythm Airway Mallampati: Class III Dentition: other (multiple missing) Pulmonary Sleep Apnea CV/HEM Hypertension and Myocardial Infarction (6 years ago no interventions) Metabolic Diabetes Mellitus and Hyperlipidemia Anesthetic Plan ASA status: 3 Anesthesia: General Risk of > 500 ml blood loss (7ml/kg in children): No Medications/Allergies Home Medications Medication Instructions Recorded Confirmed Last Taken Type dapagliflozin propanediol 10 mg 10 mg PO QAM #90 tabs 04/27/22 02/23/23 Unknown Rx tablet (Farxiga) blood-glucose meter (Accu-Chek #1 ea 10/28/22 02/17/23 Unknown Rx Guide Glucose Meter) pen needle, diabetic 31 gauge x #100 ea 11/03/22 02/17/23 Unknown Rx 3/16 (1st Tier Unifine Pentips) lancets 33 gauge (OneTouch Delica #100 ea 12/16/22 02/17/23 Unknown Rx Plus Lancet) blood sugar diagnostic (Defend Your Headuch #100 strips 12/18/22 02/17/23 Unknown Rx Verio test strips) liraglutide 0.6 mg/0.1 mL (18 mg/3 1.2 mg (0.2 mL) SUBCUT DAILY #6 mL 12/28/22 02/23/23 Unknown Rx mL) subcutaneous pen injector (Meet.comza 2-David) duloxetine 60 mg capsule,delayed 120 mg PO DAILY #60 caps 12/30/22 02/23/23 Unknown Rx release (Cymbalta) atorvastatin 40 mg tablet 40 mg PO DAILY 02/23/23 02/23/23 Unknown History cetirizine 10 mg tablet 10 mg PO PRN PRN Allergy Symptoms 02/23/23 02/23/23 Unknown History fluticasone propionate 50 2 spray intranasal PRN PRN Allergy 02/23/23 02/23/23 Unknown History mcg/actuation nasal Symptoms spray,suspension (Flonase Allergy Relief) gabapentin 300 mg capsule 300 mg PO TID 02/23/23 02/24/23 02/24/23 History glipizide 10 mg tablet 10 mg PO BID 02/23/23 02/23/23 Unknown History meloxicam 15 mg tablet 15 mg PO DAILY 02/23/23 02/23/23 Unknown History metformin 1,000 mg tablet 1,000 mg PO BID 02/23/23 02/23/23 Unknown History trazodone 50 mg tablet 50 mg PO DAILY 02/23/23 02/23/23 Unknown History triamterene 37.5 1 tab PO DAILY 02/23/23 02/23/23 Unknown History mg-hydrochlorothiazide 25 mg tablet Allergies Allergy/AdvReac Type Severity Reaction Status Date / Time hydromorphone Allergy Unknown Verified 02/23/23 09:10 Current Medications Generic Name Dose Route Start Last Admin Trade Name Freq PRN Reason Stop Dose Admin Sodium Chloride 1,000 mls @ 30 mls/hr 02/24/23 06:15 02/24/23 06:32 Sodium Chloride 0.9% IV 02/25/23 06:14 30 mls/hr .Q24H RACHEL Administration PFSH Anesthesia Medical History (Updated 02/19/23 @ 18:04 by Adams Khalil NP) Chronic post-traumatic stress disorder Chronic right SI joint pain Inadequate housing Intervertebral disc disorders with radiculopathy, lumbosacral region Leukocytosis chronic since 2019 Low income Major depressive disorder, recurrent, moderate Meningitis spinal At age 26 KELSI (obstructive sleep apnea) not compliant Post-traumatic stress disorder, unspecified Psychiatric care Surgical History History of carpal tunnel surgery 2005 [place] History of umbilical hernia repair History of umbilical hernia repair (08/12/21) Recurrent-laparoscopic repair [place]x of cholecystectomy laparascopic procedure 1999 Hx of hernia repair 08/07/19 Dr. Posada [facility] [place] Hx of hysterectomy total laparoscopic hysterectomy, bilat salpingectomy and extensive lysis of omental adhesions on 03/22/[address] Marr [place] [facility] [place] for irrecular bleeding and abdominal pain. Postopertavely pathology showed no significant histopathological alteration in cervix, peritoneum, endometrium, myometrium and bilat fallopian tubes Hx of rhinoplasty 2000 in [place] Hx of [place]illectomy 2000 [place] Hx of tubal ligation 1993 [place] at time of second Status post colonoscopy with polypectomy (08/04/21) Family History (Updated 02/17/23 @ 10:25 by Adams Khalil NP) Father Heart disease Mother Heart disease Congestive heart failure Sister Cancer cervical cancer Family/Other Cancer colon cancer-maternal uncle Diabetes Family/Other Cancer breast cancer-maternal aunt Stroke Other Chronic post-traumatic stress disorder Denies family history of Clotting disorder Anesthesia complication Bleeding disorder Social History Smoking and tobacco status: current every day smoker cigarettes Packs smoked per day: 1 Years cigarettes smoked: 42 Quit status (tobacco): considering quitting Second hand smoke exposure: Yes Smoking risk assessment/counseling performed?: Yes (Tobacco use, strategies for quitting, pharmacotherapy options available) Tobacco counseling given: other Alcohol intake: current Alcohol intake frequency: 3 or more drinks per day Alcohol type: hard liquor Substance/Drug Use: current Substance/Drug use frequency: Special occassions/opportunity only Other substance/drug use details: Delta 8 gummies Desire information about substance/drug rehabilitation?: No Adopted: No Caregiver/support person: No Lives independently: No Household members: spouse Housing: House Marital status: Marital status details: 11 years Number of children: 2 Number of grandchildren: 6 Highest education level completed: 11th Grade service: No Current occupational status: employed Current occupation: Working at the [employer] in [place] Current occupational exposures/hazards: No Pets and animals: Yes Pets & animals: cat(s), dog(s) and farm animals Farm Animals: pigs Pets & animal details: chickens, turkeys, rabbits Leisure activites: other Leisure activities details: christiano Sexually active: Yes Do you think of yourself as: Straight/Heterosexual Current gender identity: Female Lore/Druze: Sikh Special lore needs: No Agree to transfusion: Yes Financial difficulty paying for basics: Somewhat Hard Female Reproductive History Para: 2 Spontaneous abortions: Yes Data Anesthesia 02/24/23 06:21 02/24/23 06:21 Short CBC 02/24/23 Range/Units 06:21 WBC 15.17 H (3.29-11.43) 10^3/uL Hgb 16.60 (11.27-16.99) g/dL Hct 49.6 H (36-47) % MCV 96.9 (85-98) fl Plt Count 415 H (157-399) 10^3/cmm Neut % (Auto) 71.8 % Neut # (Auto) 10.90 H (1.8-7.7) 10^3/uL Cardiac Studies: No Data to Display
[2023-02-24 06:54] LABS: Anion Gap 17.6 (5-19); Blood Urea Nitrogen 17 mg/dL (6-20); Carbon Dioxide 21 mmol/L (22-29); Chloride 103 mmol/L (98-107); Glomerular Filtration Rate 66.3 mL/min (90-130); Glucose 285 mg/dL (65-115); Osmolality Calculated 296 mOsm/kg (285-295); Potassium 4.6 mmol/L (3.5-5.1); Sodium 137 mmol/L (136-145)
[2023-02-24] MEDS: ceFAZolin 2,000 MG in sodium chloride 0.9% (plus) 50 ML 100 MG IV (07:41)
[2023-02-24 07:53] LABS: Glucose Point of Care 299 mg/dL (70-110)
[2023-02-24] MEDS: lidocaine-epi 1% 20 mL INJ INJECTION (08:22)
--- NOTE | 2023-02-24 08:27 | PM.OP ---
Operative Report Date of procedure: February 24, 2023 Pre-op diagnosis: lumbar stenosis with neurogenic claudication Post-op diagnosis: same Procedure done: L4/5 laminectomy with partial factectomy Surgeon: Alfredo Quinones DO Tentering Machine Off Bearer: None Estimated blood loss (mL): 5 Procedure: L4-5 laminectomy with partial facetectomy Patient is brought to the operative suite. After undergoing anesthesia they are placed in the prone position. All areas of impingement are well padded. Patient is then prepped and draped in the normal sterile fashion. A skin incision is made over the L4-5 level. This is confirmed under c-arm guidance. A series of dilators are passed and the tubular retractor is docked on the L4 lamina. A bovie is used to clear the soft tissue off the lamina and the L 4/5 facet joint. A high speed myra is then used to perform the laminectomy and take down the medial aspect of the L 4/5 facet joint. A kerrison rongeure was then used to take down the remaining lamina and smooth the edge of the laminectomy up to the point where the ligamentum flavum attaches. Attention was then brought to the medial aspect of the facet joint. The remaining medial aspect of the superior and inferior aspect of the facet joint were taken down with the kerrison from the pedicle of L4 to L 5. The facet joint had significant hypertrophy. Attention was then brought to the Ligamentum Flavum. The ligament was taken down from the lamina of L4 to L5 and out medially to the remaining facet joint. The ligament was thick. The dura was then exposed. The dura was in good repair. The L4 nerve was then traced with a curette out the L4/5 foramen and found to be adequately decompressed. The L5 nerve was traced with a curette around the L5 pedicle. The lateral recess was opened with a kerrison helping to further decompress the L5 nerve. Wound is then irrigated copiously with saline and surgiflo is used to stop any bleeding. The tubular retractor is removed and the wound is closed with vicryl and monocryl suture. Glue is then used to protect the wound. A sterile dressing is then placed. Patient was then placed in the supine position and transferred to the PACU in stable condition.
[2023-02-24] MEDS: HYDROcodone-acetaminophen 10-325 mg Tablet 1 TAB PO (09:39)
--- NOTE | 2023-02-24 10:00 | ANE.PACU2 ---
Inpatient post-anesthesia follow up: Airway intact: Yes Vital signs: Temperature 97.2 F Pulse Rate 100 Respiratory Rate 18 Blood Pressure 115/74 Pulse Oximetry 92 Oxygen Delivery Me thod Room Air Oxygen Flow Rate 5 Fraction of Inspir ed Oxygen Hydration adequate: Yes Nausea and vomiting: No Pain level: 1 Mental status: Baseline
== END 2023-02-24 10:00 | disposition home or self-care (01) ==
PROVIDERS: Anesthesiology; PCP Nurse Practitioner Family; Visit Provider Orthopaedic Surgery
PROC: (CPT 63005; principal; 2023-02-24 07:00)
DX: M48.062 Spinal stenosis, lumbar region with neurogenic claudication (principal); I10 Essential (primary) hypertension; I25.2 Old myocardial infarction; E11.9 Type 2 diabetes mellitus without complications; E78.5 Hyperlipidemia, unspecified; G47.33 Obstructive sleep apnea (adult) (pediatric); F17.210 Nicotine dependence, cigarettes, uncomplicated
CPT/HCPCS: 63047; 36415; 36416; 72020; 76000; 80048; 82962; 85025; J0690; J1100; J2250; J2405; J2704; J2710; J3010; J3490; J7030

== ENCOUNTER → 2023-03-09 14:09 | Outpatient (BNVA) | payer MEDICAID, SELFPAY ==
[2022-11-03 10:03] VITALS: BP 125/82; BMI 32.0
== END ==
PROVIDERS: PCP Nurse Practitioner Family; Visit Provider Orthopaedic Surgery
DX: Z47.89 Encounter for other orthopedic aftercare (principal)
CPT/HCPCS: 99024

== ENCOUNTER → 2023-04-06 13:21 | Outpatient (BNVA) | payer MEDICAID, SELFPAY ==
[2022-11-03 10:03] VITALS: BP 125/82; BMI 32.0
== END ==
PROVIDERS: PCP Nurse Practitioner Family; Visit Provider Physician Assistant
DX: M51.16 Intervertebral disc disorders with radiculopathy, lumbar region; Z47.89 Encounter for other orthopedic aftercare; Z79.891 Long term (current) use of opiate analgesic
CPT/HCPCS: 99024; 99214

== ENCOUNTER → 2023-04-24 15:20 | Outpatient (BNVA) | payer MEDICAID, SELFPAY ==
[2022-11-03 10:03] VITALS: BP 125/82; BMI 32.0
== END ==
PROVIDERS: PCP Nurse Practitioner Family; Visit Provider Podiatrist Foot & Ankle Surgery
DX: G57.62 Lesion of plantar nerve, left lower limb (principal)
CPT/HCPCS: 99213

== ENCOUNTER → 2023-05-16 08:10 | Outpatient (BNVA) | payer MEDICAID, SELFPAY ==
[2022-11-03 10:03] VITALS: BP 125/82; BMI 32.0
== END ==
PROVIDERS: PCP Nurse Practitioner Family; Visit Provider Orthopaedic Surgery
DX: Z47.89 Encounter for other orthopedic aftercare (principal)
CPT/HCPCS: 99024; 99213

== ENCOUNTER 2023-05-25 14:41 | Outpatient (CLI) | payer MEDICAID, SELFPAY ==
[2022-11-03 10:03] VITALS: BP 125/82; BMI 32.0
--- NOTE | 2023-05-25 15:15 | MR_ITS ---
WS: [id number] MRI LEFT FOOT WITHOUT CONTRAST. COMPARISON: None Multiplanar, multisequence imaging is performed without contrast. Marker is placed along the distal second/third metatarsal heads at the area of pain. There is a moderate amount of edema centered around the second metatarsal head and extending into the second intertarsal space. The plantar plate of the second metatarsal head is slightly displaced from the metatarsal head with fluid intervening between the bone and the plantar plate. There is also poo r definition of the medial and collateral ligaments involving the second metatarsal head. There is ed shila extends between the second and third metatarsal heads. The plantar plate and the collateral ligam ents of the third metatarsal head appear intact. There is also mild soft tissue thickening anteriorly but the extensor tendon appears intact. No osseous abnormality. There is no evidence for stress fracture. No marrow edema. The Achilles tendo n appears normal. Mild tarsal articulation narrowing and small osteophytes. IMPRESSION: 1. No stress fracture or marrow edema. 2. Abnormal signal surrounding the second metatarsal head and extending into the second intertarsal s pace. 3. Plantar plate and the collateral ligaments of the second metatarsal head demonstrate at least part ial tears. There is increased fluid between the plantar plate and the second metatarsal head suggesti ng separation of the plantar plate from the bone.
== END 2023-05-25 14:42 | disposition home or self-care (01) ==
PROVIDERS: PCP Nurse Practitioner Family; Visit Provider Podiatrist Foot & Ankle Surgery
DX: G57.62 Lesion of plantar nerve, left lower limb (principal); S93.692A Other sprain of left foot, initial encounter; X58.XXXA Exposure to other specified factors, initial encounter
CPT/HCPCS: 73718

== ENCOUNTER → 2023-06-09 09:25 | Outpatient (BNVA) | payer MEDICAID, SELFPAY ==
[2023-06-12 07:06] VITALS: BP 125/82; BMI 32.0
== END ==
PROVIDERS: PCP Nurse Practitioner Family; Visit Provider Podiatrist Foot & Ankle Surgery
DX: G57.62 Lesion of plantar nerve, left lower limb
CPT/HCPCS: 99213

== ENCOUNTER → 2023-06-12 11:19 | Outpatient (BNVA) | payer OTHER, SELFPAY ==
[2023-06-12 07:06] VITALS: BP 125/82; BMI 32.0
== END ==
PROVIDERS: PCP Nurse Practitioner Family; Visit Provider Nurse Practitioner
DX: F33.1 Major depressive disorder, recurrent, moderate (principal); F43.12 Post-traumatic stress disorder, chronic; Z79.899 Other long term (current) drug therapy
CPT/HCPCS: 80061; 83036

== ENCOUNTER → 2023-06-27 08:59 | Outpatient (BNVA) | payer MEDICAID, SELFPAY ==
[2023-06-14 15:54] VITALS: BP 124/77; BMI 33.1
== END ==
PROVIDERS: PCP Nurse Practitioner Family; Visit Provider Physician Assistant
DX: Z47.89 Encounter for other orthopedic aftercare (principal)
CPT/HCPCS: 99213

== ENCOUNTER 2023-09-11 14:00 | Outpatient (CLI) | payer BC, MEDICAID, SELFPAY ==
[2023-06-14 15:54] VITALS: BP 124/77; BMI 33.1
--- NOTE | 2023-09-11 14:30 | MR_ITS ---
WS: [id number] MRI LUMBAR SPINE NONCONTRAST HISTORY: back pain COMPARISON: 08/05/2022 TECHNIQUE: Sagittal and axial multisequence imaging is submitted. Reidentified is slight retrolisthesis of L2, L3 and L4 by 3 to 4 mm. Disc bulging at L2-3, L3-4 and L 4-5. No fracture or marrow edema. Conus terminates normally at L1-2 disc level. L1-L2: Mild annular disc bulging with a tiny central disc protrusion and facet arthritis. No stenosis . L2-L3: Moderate annular disc bulging and osteophytic ridging with a small central disc protrusion enc roaching upon the ventral thecal sac. Mild central stenosis with bilateral subarticular recess stenos is. Minimal foraminal stenosis. L3-L4: Diffuse moderate annular disc bulging with ligamentum flavum and facet arthritis. Disc extends asymmetrically to the LEFT. Similar to the prior study. Moderate central, bilateral subarticular rec ess and LEFT foraminal stenosis. Mild RIGHT foraminal stenosis. Similar to the prior study. L4-L5: Marked annular disc bulging with ligamentum flavum and facet arthritis. Diffuse osteophytic ri dging. Moderate central, bilateral subarticular recess and foraminal stenosis. More significant prudence inal stenosis on the RIGHT. There is significant encroachment upon the L4 and L5 nerve roots, greates t on the RIGHT. Small RIGHT hemilaminectomy defect at L4-5. L5-S1: Mild asymmetric disc bulging. Disc asymmetrically extends to the LEFT. Very mild LEFT foramina l stenosis and facet arthritis. Paravertebral soft tissues are normal. IMPRESSION: 1. Multilevel facet joint arthritis and stenoses, most significant at L3-4 through L4-5. 2. RIGHT hemilaminectomy defect at L4-5. 3. L3-4: Moderate central, bilateral subarticular recess and LEFT foraminal stenosis. Mild RIGHT for aminal stenosis. Disc contacts the traversing L5 nerve roots in the RIGHT exiting L4 nerve root. 4. L4-5: Moderate central, bilateral subarticular recess and foraminal stenosis. Slightly greater's foraminal stenosis on the RIGHT. There is disc encroachment upon the L4 and L5 nerve roots. 5. L2-3: Mild central and bilateral subarticular recess stenosis. 6. Mild LEFT foraminal stenosis at L5-S1.
== END 2023-09-11 14:01 | disposition home or self-care (01) ==
LOC: RAD 14:01
PROVIDERS: PCP Nurse Practitioner Family; Visit Provider Orthopaedic Surgery
DX: Z98.890 Other specified postprocedural states (principal); M47.817 Spondylosis without myelopathy or radiculopathy, lumbosacral region; M96.1 Postlaminectomy syndrome, not elsewhere classified; M48.07 Spinal stenosis, lumbosacral region
CPT/HCPCS: 72148

== ENCOUNTER → 2023-09-21 16:47 | Outpatient (BNVA) | payer BC, MEDICAID, SELFPAY ==
[2023-06-14 15:54] VITALS: BP 124/77; BMI 33.1
== END ==
PROVIDERS: PCP Nurse Practitioner Family; Visit Provider Orthopaedic Surgery
DX: Z01.818 Encounter for other preprocedural examination (principal)
CPT/HCPCS: 36415; 80053; 81001; 83036; 85025; 87077; 87086; 87186

== ENCOUNTER → 2023-10-11 10:18 | Outpatient (BNVA) | payer SELFPAY ==
[2023-06-14 15:54] VITALS: BP 124/77; BMI 33.1
== END ==
PROVIDERS: PCP Nurse Practitioner Family; Visit Provider Family Medicine
DX: Z01.818 Encounter for other preprocedural examination (principal)
CPT/HCPCS: 81003; 93005

== ENCOUNTER → 2023-10-17 12:50 | Outpatient (BNVA) | payer MEDICAID, SELFPAY ==
[2023-06-14 15:54] VITALS: BP 124/77; BMI 33.1
== END ==
PROVIDERS: PCP Nurse Practitioner Family; Visit Provider Family Medicine
DX: Z01.818 Encounter for other preprocedural examination (principal)
CPT/HCPCS: 81003

== ENCOUNTER 2023-10-18 09:28 | Inpatient (IN) | payer BC, MEDICAID, SELFPAY ==
[2023-06-14 15:54] VITALS: BP 124/77; BMI 33.1
[2023-10-18] VITALS (23 sets, daily range): BP systolic 108–176; BP diastolic 72–114; PULSE 76–114; RESP 15–21; TEMP 36.3–37; O2SAT 91–100; BMI 32.0
--- NOTE | 2023-10-18 | XR_ITS ---
WS: [id number] C-ARM RADIOGRAPHS LUMBAR SPINE; 3 IMAGES HISTORY: JOHN PICS COMPARISON: 02/24/2023 Extensive posterior lumbar fusion with interbody spacers extending from L3-L5. IMPRESSION: Posterior lumbar fusion from L3-L5 with interbody spacers.
[2023-10-18] MEDS: sodium chloride 0.9% 1,000 ML 30 ML IV (06:18)
[2023-10-18 06:36] LABS: Glucose Point of Care 343 mg/dL (70-110)
--- NOTE | 2023-10-18 06:53 | P.HPUD_ITS ---
Surgery/Procedure H&P Update DATE OF PROCEDURE: October 18, 2023 DATE H&P PERFORMED: 10/11/23 CHANGES TO PREVIOUS DOCUMENTATION: Patient is complaining of left-sided numbness she did not disclose during her meeting with me on 09/21/2023 she does have a stenosis and disc herniation at L3- 4 on the left side. At this point my plan is to do L3-L5 PLIF. PREOP DIAGNOSIS: Lumbar stenosis with neurogenic claudication PLANNED PROCEDURE: Operation Date: 10/18/23 07:00 Proposed Procedures p Spinal Fusion PSF(Not Applicable) - DO john Tucker Lumbar Spine Decompression Lumbar Decompression(Not Applicable) - DO john Tucker Posterior Lumbar Interbody Fusion PLIF(Not Applicable) - Alfredo Quinones DO
--- NOTE | 2023-10-18 06:56 | ANES.PREANE2 ---
Pre-Anesthetic Assessment Height/Weight: Height 1.57 m Weight 79.379 kg Temp Pulse Resp BP Pulse Ox O2 Del Method 97.3 F L 78 18 133/79 96 Room Air 10/18/23 06:06 10/18/23 06:06 10/18/23 06:06 10/18/23 06:06 10/18/23 06:06 10/18/23 06:30 Preop Diagnosis: Lumbar stenosis with neurogenic claudication Operation Date: 10/18/23 07:00 Proposed Procedures p Spinal Fusion PSF(Not Applicable) - Alfredo Quinones DO s Lumbar Spine Decompression Lumbar Decompression(Not Applicable) - Alfredo Quinones DO s Posterior Lumbar Interbody Fusion PLIF(Not Applicable) - Alfredo Quinones DO Familial anesthetic complications: None Was Beta Kusum taken within 24 hours: N/A Was Clonidine taken within 24 hours: N/A Last intake: Intake Last Liquid Date 10/17/23 Last Liquid Time 23:00 Last Solid Date 10/17/23 Last Solid Time 18:30 Social Tobacco and No alcohol Exam alert, oriented x 3, clear to auscultation bilaterally and regular rate & rhythm Airway Mallampati: Class III Dentition: other (bad teeth) Pulmonary Sleep Apnea CV/HEM Hypertension Metabolic Diabetes Mellitus Anesthetic Plan ASA status: 3 Anesthesia: General Risk of > 500 ml blood loss (7ml/kg in children): No Medications/Allergies Home Medications Medication Instructions Recorded Confirmed Last Taken Type blood-glucose meter (Accu-Chek #1 ea 10/28/22 09/28/23 Unknown Rx Guide Glucose Meter) lancets 33 gauge (OneTouch Delica #100 ea 12/16/22 09/28/23 Unknown Rx Plus Lancet) blood sugar diagnostic (OneTouch #100 strips 12/18/22 09/28/23 Unknown Rx Verio test strips) pen needle, diabetic 31 gauge x #100 ea 03/09/23 09/28/23 Unknown Rx 3/16 (Pentips) buspirone 10 mg tablet 10 mg PO BID #60 tabs 08/21/23 10/17/23 10/16/23 Rx trazodone 100 mg tablet 100 mg PO .HS #30 tabs 08/21/23 10/17/23 10/16/23 Rx hydrocodone 5 mg-acetaminophen 325 1 tab PO .Q4-6H Postoperative pain 09/07/23 10/18/23 10/16/23 Rx mg tablet 5 days #30 tabs bone growth stimulator #1 ea 10/04/23 Unknown Rx atorvastatin 40 mg tablet 40 mg PO DAILY 10/17/23 10/17/23 10/16/23 History cetirizine 10 mg tablet 10 mg PO DAILY 10/17/23 10/18/23 10/16/23 History dapagliflozin propanediol 10 mg 10 mg PO DAILY 10/17/23 10/17/23 10/13/23 History tablet (Farxiga) duloxetine 60 mg capsule,delayed 60 mg PO DAILY 10/17/23 10/17/23 10/16/23 History release gabapentin 300 mg capsule 300 mg PO TID 10/17/23 10/17/23 10/16/23 History glipizide 10 mg tablet 10 mg PO BID 10/17/23 10/17/23 10/16/23 History liraglutide 0.6 mg/0.1 mL (18 mg/3 1.2 mg SUBCUT DAILY 10/17/23 10/17/23 10/13/23 History mL) subcutaneous pen injector ([employer] 2-David) meloxicam 15 mg tablet 15 mg PO DAILY 10/17/23 10/17/23 10/13/23 History metformin 1,000 mg tablet 1,000 mg PO BID 10/17/23 10/17/23 10/16/23 History triamterene 37.5 1 tab PO DAILY 10/17/23 10/17/23 10/17/23 History mg-hydrochlorothiazide 25 mg tablet Allergies Allergy/AdvReac Type Severity Reaction Status Date / Time hydromorphone Allergy Unknown Verified 10/18/23 06:11 Current Medications Generic Name Dose Route Start Last Admin Trade Name Freq PRN Reason Stop Dose Admin Sodium Chloride 1,000 mls @ 30 mls/hr 10/18/23 06:00 10/18/23 06:18 Sodium Chloride 0.9% IV 10/19/23 05:59 30 mls/hr .Q24H RACHEL Administration PFSH Anesthesia Medical History Leukocytosis chronic since 2019 KELSI (obstructive sleep apnea) not compliant Inadequate housing Low income Post-traumatic stress disorder, unspecified Psychiatric care Chronic post-traumatic stress disorder 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 [place] History of carpal tunnel surgery 2005 [place] Hx of cholecystectomy laparascopic procedure 1999 Hx of rhinoplasty 2000 in [place] Hx of tubal ligation 1993 [place] time [place] second [place] 1990 [place] Hx of hysterectomy total laparoscopic hysterectomy, bilat salpingectomy and extensive lysis of omental adhesions on 03/22/[address] Marr at [facility] [place] for irrecular bleeding and abdominal pain. Postopertavely pathology showed no significant histopathological alteration in cervix, peritoneum, endometrium, myometrium and bilat fallopian tubes Hx of tonsillectomy 2000 in [place] Family History Father Heart disease Mother Heart disease Congestive heart failure (CHF) Sister Cancer cervical cancer Family/Other Cancer colon cancer-maternal uncle Diabetes Family/Other Cancer breast cancer-maternal aunt Stroke Other Chronic post-traumatic stress disorder Denies family history of Clotting disorder Anesthesia complication Bleeding disorder Social History Smoking and tobacco/nicotine status: current every day tobacco/nicotine user cigars Cigars smoked per week: 20 Years smoked cigars: 43 Quit status (tobacco/nicotine): considering quitting Second hand smoke exposure: Yes Alcohol intake: former Year of sobriety/quit date alcohol: 2022 Former alcohol use details: hard liquor Substance/Drug Use: current Substance/Drug use frequency: Special occassions/opportunity only Other substance/drug use details: Delta 8 gummies Adopted: No Caregiver/support person: No Lives independently: No Household members: spouse Housing: House Marital status: Marital status details: 12 years Number of children: 2 Number of grandchildren: 8 Highest education level completed: 11th Grade service: No Current occupational status: unemployed Current occupation: trying to get disability Current occupational exposures/hazards: No Pets and animals: Yes Pets & animals: cat(s), dog(s) and farm animals Farm Animals: pigs Pets & animal details: chickens, turkeys, geese, duck Leisure activites: art, games and other Leisure activities details: christiano Sexually active: No Do you think of yourself as: Straight/Heterosexual Current gender identity: Female Lore/Mormonism: Latter-Day Special lore needs: No Agree to transfusion: Yes Female Reproductive History Para: 2 Spontaneous abortions: Yes Data Anesthesia Cardiac Studies: No Data to Display
[2023-10-18] MEDS: insulin regular-human 100 units/1 mL 10 UNIT IVP ×2 (06:59→10:45)
[2023-10-18] MEDS: ceFAZolin 2,000 MG in sodium chloride 0.9% (plus) 50 ML 100 MG IV ×3 (07:03→18:05)
[2023-10-18] MEDS: heparin, porcine 1,000 unit/mL INJ 10 mL 10000 UNIT IRRIGATION (08:00)
[2023-10-18] MEDS: vancomycin 1,000 MG SDV 1000 MG XX (08:01)
[2023-10-18] MEDS: lidocaine-epi 1% 20 mL INJ INJECTION (08:01)
[2023-10-18 10:39] LABS: Glucose Point of Care 389 mg/dL (70-110)
--- NOTE | 2023-10-18 11:30 | P.OP_ITS ---
Operative Report Date of procedure: October 18, 2023 Pre-op diagnosis: Lumbar stenosis with neurogenic claudication Post-op diagnosis: same Procedure done: 1. L3/4 Interbody fusion with posterolateral fusion 2. L4/5 Interbody fusion with posterolateral fusion 3. Instrumentation L3-5 4. Cage L3/4 5. Cage at L4/5 6. L3-4 laminectomy with facetectomies for purpose of decompressing nerve 7. L4-5 laminectomy with facetectomies for purpose of decompressing nerves 8. use of autograft from same incision 9. Use of allograft 10. Bone marrow aspirate from right iliac crest 11. Use of computer navigation stereotactic for the spine Surgeon: Alfredo Quinones, Procedure: 1. L3/4 Interbody fusion with posterolateral fusion 2. L4/5 Interbody fusion with posterolateral fusion 3. Instrumentation L3-5 4. Cage L3/4 5. Cage at L4/5 6. L3-4 laminectomy with facetectomies for purpose of decompressing nerve 7. L4-5 laminectomy with facetectomies for purpose of decompressing nerves 8. use of autograft from same incision 9. Use of allograft 10. Bone marrow aspirate from right iliac crest 11. Use of computer navigation stereotactic for the spine Patient is brought to the operative suite. After undergoing anesthesia, the patient had neuro monitoring attached. Patient was then placed in the prone position on the Abdiaziz table. All areas of impingement were well-padded. Patient was then prepped and draped in the normal sterile fashion. Skin incision was then made over the L 3 to L5 space. Subperiosteal dissection was made out to the transverse processes of L 3, L4 and L 5 bilaterally. The [employer] bone marrow aspirate kit was used to aspirate bone marrow aspirate. This was done by using the sharp probe to open up the bone. Aspiration was performed and then the blunt probe was then used to dissect down to through the bone tunnel and iliac crest. An aspirating well drawn back a millimeter approximately 20 cc of bone marrow aspirate was used. And mixed with the allograft and autograft bone that will be used. It was brought to using the computer navigation. The 2 pins were placed into the right iliac crest which were later removed. The fiducial was attached. The Corie Coronado's were on the patient. Information from the peer was loaded) C arm. This was later used for using pedicle screws. The technique for placing the pedicle screws was to use a drill followed by the gearshift probe linked to computer navigation. Followed by the ball probe to feel the superior inferior medial lateral gaffney of the pedicles. Then placement of the screws using computer navigation. Was done at each pedicle. Screws were placed at L 3 bilaterally, L4 bilaterally and L5 bilaterally. Next attention was brought to performing the laminectomy ofL3. This was done using the high-speed bur Kerrisons and curettes. Once the lamina was removed and then attention was brought to performing a partial facetectomy on the contralateral side. This was done again using the high-speed bur curettes and Kerrisons. The ligamentum flavum was taken down bilaterally from L3 to L4. Attention was then brought to the facet on the ipsilateral side. The facet was taken down. The L4 nerve was decompressed as it passed around the L4 pedicle. The laminectomy was done for purposes of decompressing the nerve as well as placement of the cage. The L3 nerve was identified as it traversed through the L3/4 foramen. The thecal sac was identified and retracted. The L3/4 disc base was identified. Using a knife the disc base was opened. And then sequential sahil were placed. The first shaver was a 6 and the last shaver was a 8. Using a pituitary and down going curette the endplates were scraped and disc material was removed from the space. Once adequate decompression of the disc base was felt to be had. Osteoamp sponge was packed into the anterior aspect of the disc base. Then a size 9 cage from [employer] was placed after packing osteoamp into the cage. While placing the cage the thecal sac and L4 nerve was protected. C arm was used to ensure that the cages placed in the appropriate position. Next attention was brought to performing the laminectomy ofL4. This was done using the high-speed bur Kerrisons and curettes. Once the lamina was removed and then attention was brought to performing a partial facetectomy on the contralateral side. This was done again using the high-speed bur curettes and Kerrisons. The ligamentum flavum was taken down bilaterally from L4 to L5. Attention was then brought to the facet on the ipsilateral side. The facet was taken down. The L5 nerve was decompressed as it passed around the L5 pedicle. The laminectomy was done for purposes of decompressing the nerve as well as placement of the cage. The L4 nerve was identified as it traversed through the L4/5 foramen. The thecal sac was identified and retracted. The L4/5 disc base was identified. Using a knife the disc base was opened. And then sequential sahil were placed. The first shaver was a 6 and the last shaver was a 8. Using a pituitary and down going curette the endplates were scraped and disc material was removed from the space. Once adequate decompression of the disc base was felt to be had. Osteoamp sponge was packed into the anterior aspect of the disc base. Then a size 9 cage from [employer] was placed after packing osteoamp into the cage. While placing the cage the thecal sac and L5 nerve was protected. C arm was used to ensure that the cages placed in the appropriate position. Attention was then brought to attaching the rods to the screws placed in the L 3 bilaterally, L4 bilaterally and L5 bilaterally. Caps were torqued into position. Locking the construct in place. Wound was copiously irrigated and then attention was brought to decorticating the facets and transverse processes laterally. Bone that was taken down from the lamina was used along with osteoamp fibers and sponges were packed into the lateral gutters along the facet joints. This was done bilaterally. Wound was then closed in a layered fashion starting with the thoracolumbar fascia. 0-vicryl was used the sub cutaneous tissue was closed with 2-0 vicryl and skin with 4-0 monocryl. Glue was then used to seal the skin and a steril dressing was applied. Patient was then placed in the supine position. The endotracheal tube was removed and patient was transferred to the PACU in stable condition.
[2023-10-18 11:35] LABS: Glucose Point of Care 316 mg/dL (70-110)
[2023-10-18] MEDS: naloxone 0.4 mg/ml SDV 0.200000000000000011 MG IVP (12:22)
[2023-10-18 13:14] LABS: ABG PCO2 44.1 mmHg (35-45); ABG PH Result 7.29 (7.35-7.45); Alveolar-Arterial Oxygen Gradi 6.2 mmHg (5-10); Arterial Blood Gas Hematocrit 45.6 % (37-47); Base Excess ABG -5.6 mmol/L (-2.0-2.0); Blood Gas Allen Test Pos; Blood Gas Operator Identificat MONRO; Blood Gas Sample Site Heel, right; Blood Gas Sample Type Arterial; Carboxyhemoglobin 4.9 %THgb (0.4-20.1); HGB O2 Sat 80.9 % (95-100); Ionized Calcium Level - ABG 1.2 mmol/L (1.1-1.4); Methemoglobin 0.1 % (0.4-1.5); Oxygen Device ROOM AIR; Oxygen Saturation ABG 85.3; PO2 ABG 49.2 mmHg (80.0-100.0); PO2 FiO2 Ratio Arterial Blood 0; Potassium Level - ABG 4.2 mmol/L (3.5-5.0); Total Hemoglobin 14.9 g/dL (12-16)
--- NOTE | 2023-10-18 13:43 | XRR_ITS ---
PROCEDURE INFORMATION: Exam: XR Chest Exam date and time: 10/18/2023 1:56 PM Age: 53 years old Clinical indication: Shortness of breath; Prior surgery; Surgery date: 6+ months; Surgery type: Spine; Additional info: SOB TECHNIQUE: Imaging protocol: Radiologic exam of the chest. Views: 1 view. COMPARISON: CR XR thoracic spine 3V* [id number] 05/30/2022 11:38 AM FINDINGS: Lungs: No focal consolidation. Bibasilar hazy opacities, ophy-[id number]-lvuz-right, compatible with atelectasis or developing infection in the proper clinical setting. Pleural spaces: No evidence of pneumothorax. No evidence of pleural effusion. Heart/Mediastinum: Cardiomediastinal silhouette is within normal limits. Bones/joints: No evidence of acute osseous abnormality. XR/XR chest 1V portable [id number] IMPRESSION: 1. Bibasilar hazy opacities, badz-hruigki-efix-right, compatible with atelectasis or developing infection in the proper clinical setting.
--- NOTE | 2023-10-18 13:44 | ECG_ITS ---
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 Measurements Intervals [place] Rate: 88 P: 41 DE: 152 QRS: -7 QRSD: 86 T: 43 QT: 358 QTc: 434 Interpretive Statements SINUS RHYTHM No previous ECG available for comparison Electronically Signed On 10-18-2023 18:34:18 CDT by Lisette Cui M.D. [id number]
--- NOTE | 2023-10-18 14:22 | P.CONIM_ITS ---
Providers/Reason For Consult Consulting Physician/Specialty*: Orthopedic service, Dr. Quinones Reason for Consult*: Acute hypoxic respiratory failure Attending Physician: Alfredo Quinones DO Primary Care Provider: Iza Encarnacion NP History of Present Illness History of Present Illness Mariam Lyons is a 53 year old female with a past medical history of smoking, no diagnosis of COPD but she has been smoking since she was 11 years old, she has KELSI listed in her chart but she denies a history of KELSI but does report that she snores at at night, history of type 2 diabetes mellitus, who presents [facility] for lumbar stenosis with neurogenic claudication status post L3-L5 laminectomy, fusion, by Dr. Quinones. Postoperatively patient was found to have hypoxia, episodes of agitation, briefly she required BiPAP, ABG showed hypoxia pH 7.29, pO2 49.2 on room air, currently she is resting comfortably on 5 L, off oxime mask, alert oriented x 3, following all commands, no evidence of respiratory distress, no nasal flaring no intercostal retractions, no tachypnea, lungs are clear to auscultation bilaterally, she denies a history of DVTs no history of PEs, no calf pain, no calf swelling no hemoptysis no cough no recent sickness no chest pain, no shortness of breath, no cardiovascular history, she does tell me that she smokes that she is 11 years old, no formal diagnosis of COPD she thinks she might have KELSI but she does not have a sleep machine at home, has type 2 diabetes mellitus overall she has been doing well except her back pain for which she needed surgery Review of Systems Const: Denies: fever(s) Card: Denies: chest pain Resp: Denies: dyspnea Medications/Allergies Home Medications Medication Instructions Recorded Confirmed Last Taken Type blood-glucose meter (Accu-Chek #1 ea 10/28/22 09/28/23 Unknown Rx Guide Glucose Meter) lancets 33 gauge (OneTouch Delica #100 ea 12/16/22 09/28/23 Unknown Rx Plus Lancet) blood sugar diagnostic (OneTouch #100 strips 12/18/22 09/28/23 Unknown Rx Verio test strips) pen needle, diabetic 31 gauge x #100 ea 03/09/23 09/28/23 Unknown Rx 16 (Pentips) buspirone 10 mg tablet 10 mg PO BID #60 tabs 08/21/23 10/17/23 10/16/23 Rx trazodone 100 mg tablet 100 mg PO .HS #30 tabs 08/21/23 10/17/23 10/16/23 Rx hydrocodone 5 mg-acetaminophen 325 1 tab PO .Q4-6H Postoperative pain 09/07/23 10/18/23 10/16/23 Rx mg tablet 5 days #30 tabs bone growth stimulator #1 ea 10/04/23 Unknown Rx atorvastatin 40 mg tablet 40 mg PO DAILY 10/17/23 10/17/23 10/16/23 History cetirizine 10 mg tablet 10 mg PO DAILY 10/17/23 10/18/23 10/16/23 History dapagliflozin propanediol 10 mg 10 mg PO DAILY 10/17/23 10/17/23 10/13/23 History tablet (Farxiga) duloxetine 60 mg capsule,delayed 60 mg PO DAILY 10/17/23 10/17/23 10/16/23 History release gabapentin 300 mg capsule 300 mg PO TID 10/17/23 10/17/23 10/16/23 History glipizide 10 mg tablet 10 mg PO BID 10/17/23 10/17/23 10/16/23 History liraglutide 0.6 mg/0.1 mL (18 mg/3 1.2 mg SUBCUT DAILY 10/17/23 10/17/23 10/13/23 History mL) subcutaneous pen injector (Victoza 2-David) meloxicam 15 mg tablet 15 mg PO DAILY 10/17/23 10/17/23 10/13/23 History metformin 1,000 mg tablet 1,000 mg PO BID 10/17/23 10/17/23 10/16/23 History triamterene 37.5 1 tab PO DAILY 10/17/23 10/17/23 10/17/23 History mg-hydrochlorothiazide 25 mg tablet Allergies Allergy/AdvReac Type Severity Reaction Status Date / Time hydromorphone Allergy Unknown Verified 10/18/23 06:11 Current Medications Generic Name Dose Route Start Last Admin Trade Name Freq PRN Reason Stop Dose Admin Sodium Chloride 1,000 mls @ 30 mls/hr 10/18/23 06:00 10/18/23 09:15 Sodium Chloride 0.9% IV 10/19/23 05:59 Infused .Q24H RACHEL Infusion PFSH Acute PFSH: Medical History Leukocytosis chronic since 2018 KELSI (obstructive sleep apnea) not compliant Inadequate housing Low income Post-traumatic stress disorder, unspecified Psychiatric care Chronic post-traumatic stress disorder 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 Posada [facility] [place] History of carpal tunnel surgery 2005 [place] Hx of cholecystectomy laparascopic procedure 1999 Hx of rhinoplasty 2000 in [place] Hx of tubal ligation 1993 [facility] at time of second Hx of section 1990 [facility] [place] 1993 [facility] [place] Hx of hysterectomy total laparoscopic hysterectomy, bilat salpingectomy and extensive lysis of omental adhesions on 03/22/[address] [place] [facility] irrecular bleeding and abdominal pain. Postopertavely pathology showed no significant histopathological alteration in cervix, peritoneum, endometrium, myometrium and bilat fallopian tubes Hx of tonsillectomy 2000 in [place] Family History Father Heart disease Mother Heart disease Congestive heart failure (CHF) Sister Cancer cervical cancer Family/Other Cancer colon cancer-maternal uncle Diabetes Family/Other Cancer breast cancer-maternal aunt Stroke Other Chronic post-traumatic stress disorder Denies family history of Clotting disorder Anesthesia complication Bleeding disorder Social History Smoking and tobacco/nicotine status: current every day tobacco/nicotine user cigars Cigars smoked per week: 20 Years smoked cigars: 43 Quit status (tobacco/nicotine): considering quitting Second hand smoke exposure: Yes Alcohol intake: former Year of sobriety/quit date alcohol: 2022 Former alcohol use details: hard liquor Substance/Drug Use: current Substance/Drug use frequency: Special occassions/opportunity only Other substance/drug use details: Delta 8 gummies Adopted: No Caregiver/support person: No Lives independently: No Household members: spouse Housing: House Marital status: Marital status details: 12 years Number of children: 2 Number of grandchildren: 8 Highest education level completed: 11th Grade service: No Current occupational status: unemployed Current occupation: trying to get disability Current occupational exposures/hazards: No Pets and animals: Yes Pets & animals: cat(s), dog(s) and farm animals Farm Animals: pigs Pets & animal details: chickens, turkeys, geese, duck Leisure activites: art, games and other Leisure activities details: christiano Sexually active: No Do you think of yourself as: Straight/Heterosexual Current gender identity: Female Lore/Scientology: Congregation Special lore needs: No Agree to transfusion: Yes Female Reproductive History: Para: 2 Spontaneous abortions: Yes Vitals/I&O/Wt Last Vital Signs Temp 97.6 F 10/18/23 14:00 Pulse 92 10/18/23 14:00 Resp 18 10/18/23 14:00 BP 175/95 10/18/23 14:00 Pulse Ox 100 10/18/23 14:00 O2 Del Method Simple Mask 10/18/23 14:00 O2 Flow Rate 6 10/18/23 14:00 FiO2 30 10/18/23 13:38 10/17/23 10/18/23 10/18/23 22:59 06:59 14:59 Intake Total 1800 / 1800 Output Total 450 / 450 Balance 1350 / 1350 Weight last 48 hrs Weight 79.379 kg Physical Exam Const: COMMON NORMALS: no acute distress and patient oriented x3 HENMT: COMMON NORMALS: normocephalic HEAD & SCALP: normocephalic Eye: COMMON NORMALS: Equal, round and reactive pupils present PUPIL: Yes Equal, round and reactive pupils present Neck/C-Spine: COMMON NORMALS: no JVD Lymph: LYMPHATIC: no lymphadenopathy noted Resp: COMMON NORMALS: normal respiratory effort, No retractions, No use of accessory muscles and clear to auscultation bilaterally AUSCULTATION: clear to auscultation bilaterally Cardio: COMMON NORMALS: no JVD, regular rate, regular rhythm, S1 normal heart sound present and S2 normal heart sound present RATE: regular rate RHYTHM: regular rhythm HEART SOUNDS: S1 normal heart sound present and S2 normal heart sound present GI: COMMON NORMALS: Normal to inspection, nondistended, normoactive bowel sounds present, Soft to palpation and non-tender PALPATION: Yes Soft to palpation Extremity: COMMON NORMALS: no calf tenderness and no pedal edema Neuro: COMMON NORMALS: patient oriented x3, CN's II-XII intact bilaterally and moves all extremities Psych: COMMON NORMALS: mental status grossly normal Urinary Catheter Management: Membreno: Cath Placed During This Visit: yes Urinary Catheter Date of Insertion: 10/18/23 Urinary Catheter Time of Insertion: 07:20 A&P Assessment and plan (1) Acute hypoxic respiratory failure: (2) COPD exacerbation: (3) KELSI (obstructive sleep apnea): (4) Hyperlipidemia associated with type 2 diabetes mellitus: (5) Essential hypertension: (6) S/P laminectomy with spinal fusion: Plan Status post lumbar laminectomy with spinal fusion Pre-op diagnosis: Lumbar stenosis with neurogenic claudication Post-op diagnosis: same Procedure done: 1. L3/4 Interbody fusion with posterolateral fusion 2. L4/5 Interbody fusion with posterolateral fusion 3. Instrumentation L3-5 4. Cage L3/4 5. Cage at L4/5 6. L3-4 laminectomy with facetectomies for purpose of decompressing nerve 7. L4-5 laminectomy with facetectomies for purpose of decompressing nerves 8. use of autograft from same incision 9. Use of allograft 10. Bone marrow aspirate from right iliac crest 11. Use of computer navigation stereotactic for the spine Plan -Pain control as per orthopedic team ? Anticoagulation per orthopedic team Type 2 diabetes mellitus ? Low-dose sliding scale Acute hypoxic respiratory failure ? Currently no evidence of respiratory distress ? Currently on 5 L, wean as tolerated ? Likely secondary to like COPD, obstructive sleep apnea, status post anesthetic, atelectasis ? Plan ? Monitor respiratory status closely ? Wean oxygen as tolerated ? Chest x-ray, BMP, BNP, CBC, troponin series, Pro-Andre, CRP ? 125 Solu-Medrol once ? DuoNeb Budesonide ? Full code Consult Attestations Medical Necessity Statement: Patient requires hospitalization for back surgery, status post lumbar spinal fusion, now with acute hypoxic respiratory failure Coding Level of Care Code Acute Code for [facility] Diagnoses Acute hypoxic respiratory failure J96.01 COPD exacerbation J44.1 KELSI (obstructive sleep apnea) G47.33 Hyperlipidemia associated with type 2 diabetes mellitus E11.69; E78.5 Essential hypertension I10 S/P laminectomy with spinal fusion Z98.1
[2023-10-18 14:28] LABS: Basophils # 0.1 10^3/uL (0.0-0.1); Basophils % 0.3 %; Lymphocytes # 1.3 10^3/uL (0.8-4.8); Lymphocytes % 6.6 %; Mean Corpuscular HGB Conc 32.4 g/dL (30-55); Mean Corpuscular Hemoglobin 31.8 pg (27-33); Mean Corpuscular Volume 98.3 fl (85-98); Mean Platelet Volume 9.4 fL (7.4-10.4); Monocytes # 0.1 10^3/uL (0.2-0.9); Monocytes % 0.7 %; Neutrophils # 17.81 10^3/uL (1.8-7.7); Neutrophils % 91.2 %; Nucleated Red Blood Cells % 0 %; Platelet Count 321 10^3/cmm (157-399); Red Blood Count 4.68 10^6/uL (3.85-5.65); Red Cell Distribution Width 13.2 % (12.1-15.1); White Blood Count 19.51 10^3/uL (3.29-11.43)
[2023-10-18 14:46] LABS: Blood Urea Nitrogen 26 mg/dL (6-20); Calcium 8.6 mg/dL (8.5-10.5); Carbon Dioxide 20 mmol/L (22-29); Chloride 104 mmol/L (98-107); Creatinine Clr Calc Pharmacy 54.1209; Glomerular Filtration Rate 47.4 mL/min (90-130); Glucose 352 mg/dL (65-115); Osmolality Calculated 297 mOsm/kg (285-295); Sodium 134 mmol/L (136-145)
[2023-10-18 14:48] LABS: Troponin(5th) Baseline < 6 ng/L (0-10)
[2023-10-18 15:00] LABS: Anion Gap 14.9 (5-19); Potassium 4.9 mmol/L (3.5-5.1)
[2023-10-18 15:21] LABS: NT Pro B Type Natriuretic Pept < 36 pg/mL (0-125)
--- NOTE | 2023-10-18 15:21 | ANE.PACU2 ---
Inpatient post-anesthesia follow up: Airway intact: Yes Vital signs: Temperature 97.6 F Pulse Rate 92 Respiratory Rate 18 Blood Pressure 175/95 Pulse Oximetry 100 Oxygen Delivery Me thod Nasal Cannula Oxygen Flow Rate 6 Fraction of Inspir ed Oxygen 30 Hydration adequate: Yes Nausea and vomiting: No Pain level: 1 Mental status: Baseline Additional Comments: Pt with low SPO2 after surgery, keeps removing O2 mask and NC. Acidotic on ABG, but patient mental status stable and VS stable after reversal of opioid with Narcan 0.[address] Thayer consulted to help determine appropriateness for floor vs ICU
[2023-10-18] MEDS: HYDROcodone-acetaminophen 10-325 mg Tablet PO (15:23)
[2023-10-18] MEDS: methylPREDNISolone sod succ 125 mg/2 mL INJ IVP (15:23)
[2023-10-18] MEDS: gabapentin 300 mg Capsule PO ×2 (15:23→20:01)
[2023-10-18] MEDS: lactated ringers 1,000 ML 90 ML IV ×2 (15:24→23:31)
[2023-10-18 15:38] LABS: Glucose Point of Care 323 mg/dL (70-110)
--- NOTE | 2023-10-18 15:44 | ECG_ITS ---
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 Measurements Intervals [place] Rate: 92 P: 39 FL: 153 QRS: -14 QRSD: 86 T: 61 QT: 343 QTc: 424 Interpretive Statements SINUS RHYTHM Compared to ECG 10/18/2023 14:23:20 No significant changes Electronically Signed On 10-18-2023 18:57:47 CDT by Lisette Cui M.D. [id number]
[2023-10-18] MEDS: ipratropium-albuterol 3 mL Neb INHALATION ×2 (16:17→21:14)
[2023-10-18 17:33] LABS: Troponin 5 2HR Delta 0.00001 ABS# (0-10)
[2023-10-18 18:01] LABS: Glucose Point of Care 514 mg/dL (70-110)
[2023-10-18] MEDS: BuSPIRONE 10 mg Tablet PO (18:05)
[2023-10-18] MEDS: docusate sodium 100 mg Capsule PO (18:05)
[2023-10-18] MEDS: insulin lispro 100 unit/1 mL SUBCUT (18:05)
[2023-10-18] MEDS: morphine 4 mg/mL SDV 1 mL 2 MG IVP (18:25)
[2023-10-18] MEDS: insulin glargine 100 units/1 mL 10 UNIT SUBCUT (18:55)
[2023-10-18] MEDS: ketorolac 30 mg/mL INJ IVP (19:04)
[2023-10-18] MEDS: cefTRIAXone 1,000 MG in sodium chloride 0.9% (plus) 50 ML 100 MG IV (20:01)
[2023-10-18 20:27] LABS: Glucose Point of Care 550 mg/dL (70-110)
[2023-10-18] MEDS: insulin lispro 100 unit/1 mL 15 UNIT SUBCUT (20:39)
[2023-10-18] MEDS: lactated ringers 500 ML 999 ML IV (20:42)
[2023-10-18] MEDS: azithromycin 500 MG in sodium chloride 0.9% 250 ML 250 MG IV (20:42)
[2023-10-18] MEDS: budesonide 0.5 mg/2 mL Neb INHALATION (21:15)
[2023-10-18 21:18] LABS: Troponin 5 6HR Delta 0.00001 ng/L (0-12)
--- NOTE | 2023-10-18 22:38 | ECG_ITS ---
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 Measurements Intervals [place] Rate: 93 P: 52 MA: 166 QRS: 23 QRSD: 85 T: 52 QT: 333 QTc: 415 Interpretive Statements SINUS RHYTHM Compared to ECG 10/18/2023 16:50:23 No significant changes Electronically Signed On 10-19-2023 15:11:58 CDT by Shane Pittman M.D. [id number]
[2023-10-19] VITALS: BP 119/74; PULSE 92; RESP 16; TEMP 36.4; O2SAT 96
[2023-10-19] MEDS: ceFAZolin 2,000 MG in sodium chloride 0.9% (plus) 50 ML 100 MG IV (02:10)
[2023-10-19] MEDS: ketorolac 30 mg/mL INJ IVP (02:22)
[2023-10-19 04:18] VITALS: BP 143/80; PULSE 85; RESP 18; TEMP 37.1; O2SAT 92
[2023-10-19 05:17] LABS: Basophils # 0.1 10^3/uL (0.0-0.1); Basophils % 0.3 %; Hematocrit 40.2 % (36-47); Lymphocytes # 2.1 10^3/uL (0.8-4.8); Lymphocytes % 9.2 %; Mean Corpuscular HGB Conc 32.1 g/dL (30-55); Mean Corpuscular Hemoglobin 32.4 pg (27-33); Mean Platelet Volume 10.2 fL (7.4-10.4); Monocytes % 4.5 %; Neutrophils # 19.54 10^3/uL (1.8-7.7); Neutrophils % 85.3 %; Nucleated Red Blood Cells % 0 %; Platelet Count 305 10^3/cmm (157-399); Red Blood Count 3.98 10^6/uL (3.85-5.65); Red Cell Distribution Width 13.1 % (12.1-15.1)
[2023-10-19 05:44] LABS: Anion Gap 16.2 (5-19); Blood Urea Nitrogen 33 mg/dL (6-20); Calcium 9.2 mg/dL (8.5-10.5); Carbon Dioxide 23 mmol/L (22-29); Chloride 100 mmol/L (98-107); Creatinine Clr Calc Pharmacy 54.1209; Glomerular Filtration Rate 47.4 mL/min (90-130); Glucose 382 mg/dL (65-115); Osmolality Calculated 303 mOsm/kg (285-295); Potassium 4.2 mmol/L (3.5-5.1); Sodium 135 mmol/L (136-145)
[2023-10-19 06:40] LABS: Glucose Point of Care 332 mg/dL (70-110)
[2023-10-19] MEDS: HYDROcodone-acetaminophen 10-325 mg Tablet PO (08:28)
[2023-10-19 08:38] VITALS: BP 137/68; PULSE 77; RESP 20; TEMP 36.6; O2SAT 96
--- NOTE | 2023-10-19 09:00 | PC.NURSE ---
Patient is A&Ox3. Respirations even and non-labored on room air. Patient is waiting at the nurses station as Dr. Quinones has discharged her. Reviewed patient discharge with patient at this time. Patient understands discharge instructions including follow up appointments with the new primary care and follow up with Dr. Quinones. Patient verbalized understanding of how to take the [place].
--- NOTE | 2023-10-19 10:00 | PC.NURSE ---
In rounds Dr. Thayer stated that he need to add some medications to this patient's discharge instructions and the patient would need to be called and updated. 1030 Patient called and updated insulin, inhaler and antibiotic information given. Patient instructed on how to use sliding scale. Patient verbalized understanding. Asked patient to return and we could review discharge instructions in person. Patient states, I would rather you just mail it if I can not get there tonight. Stated to patient that we would.
--- NOTE | 2023-10-19 10:28 | PM.DCS ---
Discharge Providers Date of Admission: 10/18/23 09:28 Date of Discharge: October 19, 2023 Attending Provider at Admission: Alfredo Quinones DO Attending Provider at Discharge: Alfredo Quinones DO Primary Care Provider: Iza Encarnacion NP Diagnoses at Discharge Discharge Diagnosis (1) Acute hypoxic respiratory failure: Status: Acute (2) COPD exacerbation: Status: Acute (3) KELSI (obstructive sleep apnea): Status: Acute Permanent problem details: not compliant (4) Hyperlipidemia associated with type 2 diabetes mellitus: Status: Acute (5) Essential hypertension: Status: Acute (6) S/P laminectomy with spinal fusion: Status: Acute Reason for Visit Reason for Visit: M48.062 Physical Exam Narrative: Patient is doing well pain is controlled. Was walking the hallway. Urinary Catheter Management: Membreno: Cath Placed During This Visit: yes, but has since been removed by the nurse Reason for Continuing Indwelling Catheter: Decision to DC Catheter Urinary Catheter Date of Insertion: 10/18/23 Urinary Catheter Time of Insertion: 07:20 Date Urinary Catheter Removed: 10/18/23 Time Urinary Catheter Discontinued: 23:47 Discharge Data Studies Completed and Pending Completed Studies During Hospitalization Category Date Time Status XR chest 1V portable [id number] Routine Exams 10/18/23 13:43 Completed Pending at discharge Category Date Time Status C-arm Fluoroscopy [id number] Routine Exams 10/18/23 05:44 Taken Basic Metabolic Panel AM LABS Lab 10/20/23 04:00 Ordered Basic Metabolic Panel AM LABS Lab 10/21/23 04:00 Ordered Complete Blood Count w/Auto AM LABS Lab 10/20/23 04:00 Ordered Complete Blood Count w/Auto AM LABS Lab 10/21/23 04:00 Ordered Radiology Impressions Chest X-Ray 10/18/23 13:43 IMPRESSION: 1. Bibasilar hazy opacities, [id number], compatible with atelectasis or developing infection in the proper clinical setting. Laboratory Results WBC 22.90 10^3/uL (3.29-11.43) H 10/19/23 04:09 RBC 3.98 10^6/uL (3.85-5.65) 10/19/23 04:09 Hgb 12.90 g/dL (11.27-16.99) 10/19/23 04:09 Hct 40.2 % (36-47) 10/19/23 04:09 MCV 101.0 fl (85-98) H 10/19/23 04:09 MCH 32.4 pg (27-33) 10/19/23 04:09 MCHC 32.1 g/dL (30-55) 10/19/23 04:09 RDW 13.1 % (12.1-15.1) 10/19/23 04:09 Plt Count 305 10^3/cmm (157-399) 10/19/23 04:09 MPV 10.2 fL (7.4-10.4) 10/19/23 04:09 Neut % (Auto) 85.3 % 10/19/23 04:09 Lymph % (Auto) 9.2 % 10/19/23 04:09 [place] % (Auto) 4.5 % 10/19/23 04:09 Eos % (Auto) 0.0 % 10/19/23 04:09 Baso % (Auto) 0.3 % 10/19/23 04:09 Neut # (Auto) 19.54 10^3/uL (1.8-7.7) H 10/19/23 04:09 Lymph # (Auto) 2.1 10^3/uL (0.8-4.8) 10/19/23 04:09 [place] # (Auto) 1.0 10^3/uL (0.2-0.9) H 10/19/23 04:09 Eos # (Auto) 0.0 10^3/uL (0.0-0.8) 10/19/23 04:09 Baso # (Auto) 0.1 10^3/uL (0.0-0.1) 10/19/23 04:09 Nucleated RBC % (auto) 0 % 10/19/23 04:09 Nucleated RBCs # 0.0 /100WBC 10/19/23 04:09 Specimen Type Arterial 10/18/23 13:00 Sample Site Heel, right 10/18/23 13:00 ABG pH 7.29 (7.35-7.45) L 10/18/23 13:00 ABG pCO2 44.1 mmHg (35-45) 10/18/23 13:00 ABG pO2 49.2 mmHg (80.0-100.0) L 10/18/23 13:00 ABG PO2/FiO2 Ratio 0 10/18/23 13:00 ABG HCO3 21.0 mmol/L (22-26) L 10/18/23 13:00 ABG O2 Saturation 85.3 10/18/23 13:00 ABG Base Excess -5.6 mmol/L (-2.0-2.0) L 10/18/23 13:00 Harley Test Pos 10/18/23 13:00 A-a O2 Gradient 6.2 mmHg (5-10) 10/18/23 13:00 Hematocrit 45.6 % (37-47) 10/18/23 13:00 Hgb O2 Saturation 80.9 % (95-100) L 10/18/23 13:00 Carboxyhemoglobin 4.9 %THgb (0.4-20.1) 10/18/23 13:00 Methemoglobin 0.1 % (0.4-1.5) L 10/18/23 13:00 Total Hemoglobin 14.9 g/dL (12-16) 10/18/23 13:00 Sodium 137.0 mmol/L (131-143) 10/18/23 13:00 Potassium 4.2 mmol/L (3.5-5.0) 10/18/23 13:00 Glucose 342.0 mg/dL (70-115) H 10/18/23 13:00 Ionized Calcium 1.2 mmol/L (1.1-1.4) 10/18/23 13:00 O2 Delivery Device Room air 10/18/23 13:00 FiO2 21.0 % 10/18/23 13:00 Stations Superintendent ID Monro 10/18/23 13:00 Sodium 135 mmol/L (136-145) L 10/19/23 04:09 Potassium 4.2 mmol/L (3.5-5.1) 10/19/23 04:09 Chloride 100 mmol/L (98-107) 10/19/23 04:09 Carbon Dioxide 23 mmol/L (22-29) 10/19/23 04:09 Anion Gap 16.2 (5-19) 10/19/23 04:09 BUN 33 mg/dL (6-20) H 10/19/23 04:09 Creatinine 1.2 mg/dL (0.5-0.9) H 10/19/23 04:09 GFR Calculation 47.4 mL/min (90-130) L 10/19/23 04:09 Glucose 382 mg/dL (65-115) H 10/19/23 04:09 POC Glucose 332 mg/dL (70-110) H 10/19/23 06:34 Calculated Osmolality 303 mOsm/kg (285-295) H 10/19/23 04:09 Calcium 9.2 mg/dL (8.5-10.5) 10/19/23 04:09 Troponin T Baseline < 6 ng/L (0-10) 10/18/23 14:22 Troponin T 120 Minute 6.00 ng/L (0-10) 10/18/23 16:40 Delta Troponin T 0.67833 ABS# (0-10) 10/18/23 16:40 Troponin T Hi Sens 6Hr 6.00 ng/L (0-10) 10/18/23 20:49 Troponin T Hi Sens 6Hr Delta 0.08153 ng/L (0-12) 10/18/23 20:49 NT-Pro-B Natriuret Pep < 36 pg/mL (0-125) 10/18/23 14:22 Blood Type O Negative 10/18/23 06:15 Rho(D) Type Rh negative 10/18/23 06:15 Antibody Screen Negative 10/18/23 06:15 Vitals Last Vital Signs Temp 97.9 F 10/19/23 08:38 Pulse 77 10/19/23 08:38 Resp 20 H 10/19/23 08:38 BP 137/68 10/19/23 08:38 Pulse Ox 96 10/19/23 08:38 O2 Del Method Room Air 10/19/23 08:38 O2 Flow Rate 1 10/18/23 21:15 FiO2 30 10/18/23 13:38 Discharge Plan Discharge Patient Disposition: Home Condition: Stable Prescriptions: New hydrocodone-acetaminophen 10-325 mg tablet 1 tab PO Q4H PRN (Reason: pain) 7 Days Qty: 40 0RF Continued (DME) blood-glucose meter [Accu-Chek Guide Glucose Meter] Misc See Rx Instructions .Route Qty: 1 0RF Rx Instructions: please dispense one meter and kit with supplies that insurance covers. trazodone 100 mg tablet 100 mg PO .HS Qty: 30 2RF buspirone 10 mg tablet 10 mg PO BID Qty: 60 1RF (DME) lancets [OneTouch Delica Plus Lancet] 33 gauge misc See Rx Instructions .Route Qty: 100 0RF Rx Instructions: As directed (DME) OneTouch Verio test strips Strip See Rx Instructions .ROUTE .COMPLEX Qty: 100 3RF Dose Instruction: USE DIRECTED Rx Instructions: USE DIRECTED (DME) pen needle, diabetic [Pentips] 31 gauge x 3/16 needle See Rx Instructions .ROUTE .COMPLEX Qty: 100 0RF Dose Instruction: USE DIRECTED ONCE DAILY WITH VICTOZA Rx Instructions: USE DIRECTED ONCE DAILY WITH VICTOZA hydrocodone-acetaminophen 5-325 mg tablet 1 tab PO .Q4-6H 5 Days Qty: 30 0RF (DME) bone growth stimulator See Rx Instructions .Route .MEDSUPPLY Qty: 1 0RF Rx Instructions: As directed atorvastatin 40 mg tablet 40 mg PO DAILY cetirizine 10 mg tablet 10 mg PO DAILY meloxicam 15 mg tablet 15 mg PO DAILY glipizide 10 mg tablet 10 mg PO BID metformin 1,000 mg tablet 1,000 mg PO BID gabapentin 300 mg capsule 300 mg PO TID triamterene-hydrochlorothiazid 37.5-25 mg tablet 1 tab PO DAILY duloxetine 60 mg capsule,delayed release(DR/EC) 60 mg PO DAILY Victoza 2-David 0.6 mg/0.1 mL (18 mg/3 mL) pen injector 1.2 mg SUBCUT DAILY dapagliflozin propanediol [Farxiga] 10 mg tablet 10 mg PO DAILY Discharge Orders: Discharge Order (Routine); Ordered 10/19/23 Ordered By: Alfredo Quinones Referrals: Alfredo Quinones DO [Physician] - 11/02/23 8:15 am Tyrone Glass MD [Referring] - 10/27/23 9:00 am (bring insurance cards to appointment) Discharge Diet: Advance as tolerated Discharge Activity: Limit activity as instructed Patient Instructions: Hydrocodone/Acetaminophen (By mouth), Lumbar Spinal Fusion (DC), Laminectomy (DC), Opioid Safety, Post Anesthesia Care Activity Restrictions/Additional Instructions: Thank you for [facility] for your care! The following is a list of instructions, from your provider, to follow upon your discharge to ensure you have the optimal recovery from your recent injury orsurgery. Follow-up care is a glass part of your treatment and safety. Be sure to make and go to all appointments, and call your doctor if you are having problems. If you do not already have a follow-up appointment made, call Dr. Quinones office in the next 1-3 days to make follow up appointment for 1 weeks at [phone]. It is also a good idea to know your test results and keep a list of the medicines you take. Medications will be prescribed for you at your provider's discretion. These medications are to be used as instructed; if they are taken more often that prescribed they will not be refilled early and in most cases will not be refilled at all. > When a refill is needed,you should contact prieto otero 2-3 business days before your prescription runs out. Medications will NOT be refilled by health education director providers after hours! > Many pain medications contain Tylenol (Acetaminophen). Do not consume more than 4,000 mg of Tylenol per day in total with any combination ofmedications. > Pain medications can cause constipation. Please use an over the counter stool softener as directed, while taking pain medications. Consulty our local pharmacist with questions or recommendations on stool softeners. If constipation persists, contact our office or your primary care provider. > While under our care,you are not to receive pain medications or other controlled substances from any other provider unless our office is notified and approves. Any attempts to do so will result in refusal to prescribe any further pain medications and possible dismissal from our practice. ? Your wound and/or dressing should remain clean and dry for 7 days after surgery. On postoperative day 7 we will change in the office.. Pad dry afterwards. No further dressing should be required from that point on. Do not put any creams or ointments on theincision > It is normal for there to be a small amount of discharge (bloody or blood tinged) present from a surgical wound for the first 1-3days. > The wound should be examined twice a day for signs of infection. Mild redness or bruising is to be expected but indications that an infection maybe starting would include; An increase in redness, swelling, or discharge, a foul odor present around the incision, and/or a fever greater than 101 ?F ? Showering is permitted, however we ask that you do not take a bath, sit in a whirlpool / Jacuzzi, or go swimming for 1 month. For only the first 2 days after surgery, lt wilt be necessary for you to cover your wound/dressing with plastic and tape to keep it dry. ? Walking is essential for the healing process after surgery. We would like you to slowly advance your walking. This should be done on relatively flat clear ground (inside or out) or can be done on a treadmill. Remember this goal does not have to happen all at once, slowly increase your distance and duration. This can be broken into more more than one walk per day as tolerated. Patients who walk as directed after surgery rarely require Physical Therapy. In the unlikely event this issue arises your provider will direct hospital staff to make the appropriate arrangements. ? No lifting over 5 pounds {a gallon of milk) or bending/twisting until further notice. Each of these activities places an unnecessary amount of stress onto the body and can impede the delicate healing process. > Instead of bending at the waist, keep your back straight and bend at the knees. > Instead of twisting your torso, keep your back straight and turn your entire body with your feet. ? You may sleep in any position which makes you comfortable. Many patients find comfort sleeping in a reclining chair. It is not abnormal to have difficulty sleeping for the first several weeks following your surgery. We recommend trying Benadry! or Tylenol PM as directed to help with your sleeping difficulties. Both medications are over the counter and available withoutprescription. ? NO SMOKING!!! Smoking dramatically increases the probability of developing postoperative wound infections. ? Common complaints after lumbar and/or thoracic spine surgery include, but are not limited to: numbness and/or tingling in the legs, pain around the incision and surrounding tissues, muscle spasms, or stiffness of the middle to low back. Contact our office if these symptoms persist or if an acute change occurs. ? No driving for the first 3-5days, and not while taking narcotics [] until seen at your follow-up appointment and cleared. There are no restrictions for riding on short trips, however if you take a longer trip, arrangements should be made to make regular stops to get out of the vehicle and stretch . ? Swelling is an unfortunate event that will take place with any surgery and is the primary source of your postoperative discomfort. While walking and regular approved activities helps control inflammation, there are additional steps you can take to minimizeswelling. > Place ice over the surgical site and surrounding tissue for twenty minutes, followed by applying a low/medium heat (heating pad) for an additional twenty minutes every 1-2 hours as needed for painrelief. > You may use of over the counter anti-inflammatory medications (Ibuprofen, Motrin, Aleve, Advil, etc) as directed on the package label. These types of medicines wm significantly reduce the amount of discomfort you experience after surgery from swelling. It should be noted that if you have and allergy to any of these medications, or a history of ulcers or kidney disease you should consult you primary care provider prior to starting these medications. Discharge Attestations Time Spent in Discharge Care*: less than 30 min Quality Metrics Clinical Quality Measures [ No reported AMI, CVA or VTE this stay] Coding Level of Care Code Acute Code for Chg Fwd Diagnoses Acute hypoxic respiratory failure J96.01 COPD exacerbation J44.1 KELSI (obstructive sleep apnea) G47.33 Hyperlipidemia associated with type 2 diabetes mellitus E11.69; E78.5 Essential hypertension I10 S/P laminectomy with spinal fusion Z98.1
== END 2023-10-19 09:00 | disposition home or self-care (01) | DRG 453 ==
LOC: MEDSURG 14:16
PROVIDERS: Anesthesiology; Family Medicine; Admitting Provider Orthopaedic Surgery; PCP Nurse Practitioner Family; Visit Provider Orthopaedic Surgery
PROC: 0SG10AJ Fusion of 2 or more Lumbar Vertebral Joints with Interbody Fusion Device, Posterior Approach, Anterior Column, Open Approach (ICD-10-PCS; principal; 2023-10-18 07:00)
PROC: 0SG10AJ Fusion of 2 or more Lumbar Vertebral Joints with Interbody Fusion Device, Posterior Approach, Anterior Column, Open Approach (ICD-10-PCS; CPT 63005; 2023-10-18 07:00)
PROC: 0SG10AJ Fusion of 2 or more Lumbar Vertebral Joints with Interbody Fusion Device, Posterior Approach, Anterior Column, Open Approach (ICD-10-PCS; CPT 22612; 2023-10-18 07:00)
DX: M48.062 Spinal stenosis, lumbar region with neurogenic claudication (principal); J96.01 Acute respiratory failure with hypoxia; F33.1 Major depressive disorder, recurrent, moderate; J44.1 Chronic obstructive pulmonary disease with (acute) exacerbation; G47.30 Sleep apnea, unspecified; I10 Essential (primary) hypertension; E11.9 Type 2 diabetes mellitus without complications; F43.12 Post-traumatic stress disorder, chronic; M51.17 Intervertebral disc disorders with radiculopathy, lumbosacral region; Z79.84 Long term (current) use of oral hypoglycemic drugs; F17.290 Nicotine dependence, other tobacco product, uncomplicated; E78.2 Mixed hyperlipidemia
CPT/HCPCS: 36415; 36416; 36600; 51702; 71045; 72100; 76000; 80048; 80051; 82330; 82805; 82962; 83880; 84484; 85025; 86850; 86900; 93005; 94640; 94660; 96372; 97161; C1713; J0131; J0330; J0456; J0690; J0696; J1100; J1200; J1644; J1815; J1885; J2250; J2270; J2310; J2371; J2405; J2704; J2919; J3010; J3370; J3490; J7030; J7050; J7120; J7626

== ENCOUNTER 2023-10-23 21:21 | Emergency (ER) | payer BC, MEDICAID, SELFPAY ==
[2023-06-14 15:54] VITALS: BP 124/77; BMI 33.1
[2023-10-23 21:39] VITALS: BP 115/68; PULSE 100; TEMP 36.6; O2SAT 94; BMI 32.9
[2023-10-23 21:48] VITALS: BP 119/68; PULSE 97; O2SAT 98
[2023-10-23 22:11] LABS: Basophils # 0.1 10^3/uL (0.0-0.1); Basophils % 0.6 %; Eosinophils # 1.1 10^3/uL (0.0-0.8); Eosinophils % 6.6 %; Hematocrit 45.2 % (36-47); Lymphocytes % 29.5 %; Mean Corpuscular HGB Conc 32.3 g/dL (30-55); Mean Corpuscular Hemoglobin 32.4 pg (27-33); Mean Corpuscular Volume 100.2 fl (85-98); Mean Platelet Volume 9.2 fL (7.4-10.4); Monocytes # 0.7 10^3/uL (0.2-0.9); Monocytes % 4.1 %; Neutrophils % 57.1 %; Nucleated Red Blood Cells % 0.1 %; Platelet Count 412 10^3/cmm (157-399); Red Blood Count 4.51 10^6/uL (3.85-5.65); Red Cell Distribution Width 13.5 % (12.1-15.1); White Blood Count 16.97 10^3/uL (3.29-11.43)
[2023-10-23 22:22] VITALS: PULSE 96; O2SAT 98
[2023-10-23 22:27] LABS: Alanine Aminotransferase 49 U/L (0-33); Albumin Level 3.5 g/dL (3.5-5.2); Alkaline Phosphatase 210 U/L (35-105); Aspartate Amino Transferase 36 U/L (0-32); Blood Urea Nitrogen 17 mg/dL (6-20); Carbon Dioxide 22 mmol/L (22-29); Chloride 99 mmol/L (98-107); Creatinine Clr Calc Pharmacy 59.9075; Globulin 3.8 g/dL (1.3-4.6); Glomerular Filtration Rate 52.4 mL/min (90-130); Glucose 184 mg/dL (65-115); Osmolality Calculated 280 mOsm/kg (285-295); Sodium 132 mmol/L (136-145); Total Bilirubin 0.2 mg/dL (0.15-1.2); Total Protein 7.3 g/dL (6.6-8.7)
[2023-10-23 22:29] LABS: Slide Review Slide Review Perform
[2023-10-23 22:30] VITALS: O2SAT 91
--- NOTE | 2023-10-23 22:35 | ED_ITS ---
HPI - Back Pain/Injury 2 General: Chief Complaint: Back Pain/Injury Stated Complaint: Lower back bleeding post op 5 days ago Time Seen by Provider: 10/23/23 21:45 History of Present Illness: Patient presents to the ER with bleeding from her incision. Dr. Quinones put pins and rods per the patient on Monday and says she saturated the bandage at least once and changed out with a maxi pad that she is saturated again and then come to the ER for further evaluation. Patient denies any fevers chills or purulent drainage she said it was clear and bloody. Patient's next appointment with Dr. Calix is approximately the ninth. Review of Systems 2 General: Reports: 10 or more systems reviewed and unremarkable except in HPI and below PFSH ED 2 PFSH: Medical History Leukocytosis chronic since 2018 KELSI (obstructive sleep apnea) not compliant Inadequate housing Low income Post-traumatic stress disorder, unspecified Psychiatric care Chronic post-traumatic stress disorder 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 Posada [facility] [place] History of carpal tunnel surgery 2005 [place] Hx of cholecystectomy laparascopic procedure 1999 Hx of rhinoplasty 2000 [place] Hx of tubal ligation [place] [facility] [place] [facility] [place] Hx of hysterectomy total laparoscopic hysterectomy, bilat salpingectomy and extensive lysis of omental adhesions on 03/22/[address] Marr at [facility] for irrecular bleeding and abdominal pain. Postopertavely pathology showed no significant histopathological alteration in cervix, peritoneum, endometrium, myometrium and bilat fallopian tubes Hx of tonsillectomy 2000 in [place] Family History Father Heart disease Mother Heart disease Congestive heart failure (CHF) Sister Cancer cervical cancer Family/Other Cancer colon cancer-maternal uncle Diabetes Family/Other Cancer breast cancer-maternal aunt Stroke Other Chronic post-traumatic stress disorder Denies family history of Clotting disorder Anesthesia complication Bleeding disorder Social History Smoking and tobacco/nicotine status: current every day tobacco/nicotine user cigars Cigars smoked per week: 20 Years smoked cigars: 45 Quit status (tobacco/nicotine): considering quitting Second hand smoke exposure: Yes Alcohol intake: former Year of sobriety/quit date alcohol: 2022 Former alcohol use details: hard liquor Substance/Drug Use: current Substance/Drug use frequency: Special occassions/opportunity only Other substance/drug use details: Delta 8 gummies Adopted: No Caregiver/support person: No Lives independently: No Household members: spouse Housing: House Marital status: Marital status details: 12 years Number of children: 2 Number of grandchildren: 8 Highest education level completed: 11th Grade service: No Current occupational status: unemployed Current occupation: trying to get disability Current occupational exposures/hazards: No Pets and animals: Yes Pets & animals: cat(s), dog(s) and farm animals Farm Animals: pigs Pets & animal details: chickens, turkeys, geese, duck Leisure activites: art, games and other Leisure activities details: christiano Sexually active: No Do you think of yourself as: Straight/Heterosexual Current gender identity: Female Lore/Muslim: Synagogue Special lore needs: No Agree to transfusion: Yes Female Reproductive History: Para: 2 Spontaneous abortions: Yes Physical Exam 2 Const: COMMON NORMALS: no acute distress, average body habitus, patient oriented x3, no limitations, healthy appearing, alert and well nourished HENMT: COMMON NORMALS: normocephalic, atraumatic, hearing grossly normal bilaterally, external ears normal, Normal external nose present, moist oral mucous membranes and oropharynx normal HEAD & SCALP: normocephalic and atraumatic NOSE: Normal external nose present EXTERNAL EAR: Yes external ears normal Neck/C-Spine: COMMON NORMALS: full ROM, no lymphadenopathy, supple, no meningeal signs, no JVD and Thyroid normal THYROID: Thyroid normal Chest: COMMONS NORMALS: normal inspection of the chest and normal palpation of entire chest wall Resp: COMMON NORMALS: normal respiratory effort, No retractions, No use of accessory muscles and clear to auscultation bilaterally AUSCULTATION: clear to auscultation bilaterally Cardio: COMMON NORMALS: no JVD, regular rate, regular rhythm, S1 normal heart sound present, S2 normal heart sound present, No gallops present (Cardio), No clicks present (Cardio), No murmurs present (Cardio) and No rub (Cardio) R ATE: regular rate RHYTHM: regular rhythm HEART SOUNDS: S1 normal heart sound present and S2 normal heart sound present GI: COMMON NORMALS: Normal to inspection, nondistended, normoactive bowel sounds present, Soft to palpation, non-tender, No hepatosplenomegaly present and no masses PALPATION: Yes Soft to palpation and Yes No hepatosplenomegaly present Back/Pelvis: OTHER: Dressing removed from postsurgical site that was saturated with serosanguineous fluid. No purulent drainage no odor no erythema. From a postsurgical standpoint looks good and not infected. Neuro: COMMON NORMALS: patient oriented x3 SENSORIUM/ORIENTATION: Yes alert MENINGEAL SIGNS: Yes no meningeal signs Course 2 Vital Signs: Vital signs: Vital Signs Temperature 98 F 10/23/23 21:39 Pulse Rate 96 10/23/23 22:22 Blood Pressure 119/68 10/23/23 21:48 Pulse Oximetry 91 10/23/23 22:30 Oxygen Delivery Me thod Room Air 10/23/23 22:30 MDM - Back Pain/Injury Medical Decision Making We had lab work that showed a mildly elevated white count at 16 but this is down previous from about 22. With a normal physical exam with no signs of infection. Patient will be discharged home after wound is clean and dried and she should follow-up with Dr. Quinones at the previously scheduled date. Differential Diagnosis Unlikely lumbar radiculopathy, sciatica, strain of lumbar region, renal colic, pyelonephritis, thoracic back pain, AAA or discitis Medical Records I reviewed the patient's medical records. Labs I reviewed the patient's lab results. 10/23/23 21:59 10/23/23 21:59 Laboratory Results WBC 16.97 10^3/uL (3.29-11.43) H 10/23/23 21:59 RBC 4.51 10^6/uL (3.85-5.65) 10/23/23 21:59 Hgb 14.60 g/dL (11.27-16.99) 10/23/23 21:59 Hct 45.2 % (36-47) 10/23/23 21:59 MCV 100.2 fl (85-98) H 10/23/23 21:59 MCH 32.4 pg (27-33) 10/23/23 21:59 MCHC 32.3 g/dL (30-55) 10/23/23 21:59 RDW 13.5 % (12.1-15.1) 10/23/23 21:59 Plt Count 412 10^3/cmm (157-399) H 10/23/23 21:59 MPV 9.2 fL (7.4-10.4) 10/23/23 21:59 Neut % (Auto) 57.1 % 10/23/23 21:59 Lymph % (Auto) 29.5 % 10/23/23 21:59 Mccormick % (Auto) 4.1 % 10/23/23 21:59 Eos % (Auto) 6.6 % 10/23/23 21:59 Baso % (Auto) 0.6 % 10/23/23 21:59 Neut # (Auto) 9.70 10^3/uL (1.8-7.7) H 10/23/23 21:59 Lymph # (Auto) 5.0 10^3/uL (0.8-4.8) H 10/23/23 21:59 Mccormick # (Auto) 0.7 10^3/uL (0.2-0.9) 10/23/23 21:59 Eos # (Auto) 1.1 10^3/uL (0.0-0.8) H 10/23/23 21:59 Baso # (Auto) 0.1 10^3/uL (0.0-0.1) 10/23/23 21:59 Nucleated RBC % (auto) 0.1 % 10/23/23 21:59 Nucleated RBCs # 0.0 /100WBC 10/23/23 21:59 Sodium 132 mmol/L (136-145) L 10/23/23 21:59 Potassium 4.0 mmol/L (3.5-5.1) 10/23/23 21:59 Chloride 99 mmol/L (98-107) 10/23/23 21:59 Carbon Dioxide 22 mmol/L (22-29) 10/23/23 21:59 Anion Gap 15.0 (5-19) 10/23/23 21:59 BUN 17 mg/dL (6-20) 10/23/23 21:59 Creatinine 1.1 mg/dL (0.5-0.9) H 10/23/23 21:59 GFR Calculation 52.4 mL/min (90-130) L 10/23/23 21:59 Glucose 184 mg/dL (65-115) H 10/23/23 21:59 Calculated Osmolality 280 mOsm/kg (285-295) L 10/23/23 21:59 Calcium 9.0 mg/dL (8.5-10.5) 10/23/23 21:59 Total Bilirubin 0.2 mg/dL (0.15-1.2) 10/23/23 21:59 AST 36 U/L (0-32) H 10/23/23 21:59 ALT 49 U/L (0-33) H 10/23/23 21:59 Alkaline Phosphatase 210 U/L (35-105) H 10/23/23 21:59 Total Protein 7.3 g/dL (6.6-8.7) 10/23/23 21:59 Albumin 3.5 g/dL (3.5-5.2) 10/23/23 21:59 Globulin 3.8 g/dL (1.3-4.6) 10/23/23 21:59 No radiology studies performed this visit Discharge Plan Discharge Patient Disposition: Home Clinical Impression: Change or removal of surgical wound dressing Condition: Stable Prescriptions: No Action (DME) blood-glucose meter [Accu-Chek Guide Glucose Meter] Misc See Rx Instructions .Route Qty: 1 0RF Rx Instructions: please dispense one meter and kit with supplies that insurance covers. trazodone 100 mg tablet 100 mg PO .HS Qty: 30 2RF buspirone 10 mg tablet 10 mg PO BID Qty: 60 1RF (DME) lancets [OneTouch Delica Plus Lancet] 33 gauge misc See Rx Instructions .Route Qty: 100 0RF Rx Instructions: As directed (DME) OneTouch Verio test strips Strip See Rx Instructions .ROUTE .COMPLEX Qty: 100 3RF Dose Instruction: USE DIRECTED Rx Instructions: USE DIRECTED (DME) pen needle, diabetic [Pentips] 31 gauge x 3/16 needle See Rx Instructions .ROUTE .COMPLEX Qty: 100 0RF Dose Instruction: USE DIRECTED ONCE DAILY WITH VICTOZA Rx Instructions: USE DIRECTED ONCE DAILY WITH VICTOZA hydrocodone-acetaminophen 5-325 mg tablet 1 tab PO .Q4-6H 5 Days Qty: 30 0RF (DME) bone growth stimulator See Rx Instructions .Route .MEDSUPPLY Qty: 1 0RF Rx Instructions: As directed atorvastatin 40 mg tablet 40 mg PO DAILY cetirizine 10 mg tablet 10 mg PO DAILY meloxicam 15 mg tablet 15 mg PO DAILY glipizide 10 mg tablet 10 mg PO BID metformin 1,000 mg tablet 1,000 mg PO BID gabapentin 300 mg capsule 300 mg PO TID triamterene-hydrochlorothiazid 37.5-25 mg tablet 1 tab PO DAILY duloxetine 60 mg capsule,delayed release(DR/EC) 60 mg PO DAILY Victoza 2-David 0.6 mg/0.1 mL (18 mg/3 mL) pen injector 1.2 mg SUBCUT DAILY dapagliflozin propanediol [Farxiga] 10 mg tablet 10 mg PO DAILY hydrocodone-acetaminophen 10-325 mg tablet 1 tab PO Q4H PRN (Reason: pain) 7 Days Qty: 40 0RF amoxicillin-pot clavulanate 875-125 mg tablet 1 tab PO BID 7 Days Qty: 14 0RF Novolog FlexPen U-100 Insulin 100 unit/mL (3 mL) insulin pen See Rx Instructions .ROUTE .COMPLEX MDD 30 Qty: 15 0RF Rx Instructions: INJECT, SUBCUT, THREE TIMES DAILY, AFTER MEALS, BASED ON SLIDING SCALE PROVIDED albuterol sulfate 90 mcg/actuation HFA aerosol inhaler 1 inh inhalation Q6H PRN (Reason: shortness of breath or wheezing) Qty: 8.5 0RF Discharge Orders: Discharge ED (Routine); Ordered 10/23/23 Ordered By: Sergio Connelly Referrals: Iza Encarnacion NP [Primary Care Provider] - 1 week Patient Instructions: Postoperative Bleeding (ED) Activity Restrictions/Additional Instructions: Your lab work showed your white blood cell count was actually lower today than it was previously. This lower white blood cell count along with no signs of active infection I feel we need to do a skin change dressing keep the area clean and dry and follow-up with your family practice physician in 2 or 3 days for second opinion as well as keep your appointment for Dr. Quinones at his previously scheduled date. Coding Level of Care Code ED Telecom Assistant for Anila Murray
== END 2023-10-23 22:44 | disposition home or self-care (01) ==
PROVIDERS: Emergency Provider Emergency Medicine; PCP Nurse Practitioner Family
DX: Z48.01 Encounter for change or removal of surgical wound dressing (principal); Z79.84 Long term (current) use of oral hypoglycemic drugs; Z79.4 Long term (current) use of insulin; F17.290 Nicotine dependence, other tobacco product, uncomplicated
CPT/HCPCS: 36415; 80053; 85025; 99283

== ENCOUNTER 2023-10-31 20:31 | Emergency (ER) | payer BC, MEDICAID, SELFPAY ==
[2023-06-14 15:54] VITALS: BP 124/77; BMI 33.1
[2023-10-31 20:36] VITALS: BP 127/66; PULSE 104; RESP 16; TEMP 36.8; O2SAT 95
[2023-10-31 20:54] VITALS: BP 115/69; PULSE 106; O2SAT 94
--- NOTE | 2023-10-31 21:04 | USR_ITS ---
PROCEDURE INFORMATION: Exam: US Duplex Left Lower Extremity Veins, Limited Exam date and time: 10/31/2023 9:33 PM Age: 53 years old Clinical indication: Pain; Edema, localized; Lower extremity, left; Leg, lower; Prior surgery; Surgery date: <1 month; Surgery type: Lumbar fusion 10/18/2023; Additional info: Swelling post-op TECHNIQUE: Imaging protocol: Real-time duplex ultrasound of the left extremity with 2-D gage scale, color Doppler flow and spectral waveform analysis including responses to compression and other maneuvers (when performed) with image documentation. Limited exam focused on the left lower extremity veins. COMPARISON: MR foot LT wo con* [id number] 05/25/2023 3:29 PM FINDINGS: Left deep veins: Unremarkable. The common femoral, femoral, proximal profunda femoral and popliteal veins are patent without thrombus. Normal Doppler waveforms. Normal compressibility and/or augmentation response. Superficial veins: Greater saphenous vein at the saphenofemoral junction is patent without thrombus. Soft tissues: Unremarkable. US/CV venous duplex [facility] [id number] IMPRESSION: No evidence of deep vein thrombosis.
[2023-10-31] MEDS: HYDROcodone-acetaminophen 7.5-325 mg Tablet 1 TAB PO (21:11)
--- NOTE | 2023-10-31 21:25 | ED_ITS ---
Documented by User: RAZA Ziegler 10/31/23 23:12 HPI - Back Pain/Injury General: Chief Complaint: Back Pain/Injury Stated Complaint: back seeping left leg swollen Time Seen by Provider: 10/31/23 20:50 Source: patient Mode of arrival: wheelchair Limitations: no limitations History of Present Illness: Patient is a 53-year-old female presenting to the emergency department complaining of left lower extremity swelling onset today. Patient is status post fusion surgery, also stating that her wound is continued to drain bloody/purulent drainage. She would like this evaluated. She does have a follow-up appointment in [address] Quinones. She notes that she has continued to ramp up her ambulation and has not had any issues with pain or swelling in the left lower extremity until today. No prior history of DVT. No breathing difficulties or chest pains. No other symptoms to report at this time. No other complications from surgery reported. She was seen once prior in the emergency department status post surgery, where she also had her wound checked. Associated symptoms: Deny abdominal pain, chills, dysuria, fatigue, fever(s), nausea or vomiting Review of Systems General: Reports: 10 or more systems reviewed and unremarkable except in HPI and below Const: Denies: fever(s), chills or fatigue Eyes: Denies: change in vision ENMT: Denies: throat pain, ear or mastoid pain or nasal discharge Card: Denies: chest pain, palpitations, swelling of feet/ankles or lightheadedness Resp: Denies: dyspnea, productive cough or wheezing GI: Denies: abdominal pain, nausea, vomiting, diarrhea or constipation : Denies: flank pain, difficulty voiding, dysuria or urinary frequency Musc: Reports: back pain and extremity swelling (Left lower); Denies: neck pain or joint pain Skin/Breast: Reports: other (Postoperative wound drainage); Denies: rash Neuro: Denies: headache(s), numbness in extremities or weakness in extremities [facility] ED PFSH: Medical History Leukocytosis chronic since 2019 KELSI (obstructive sleep apnea) not compliant Inadequate housing Low income Post-traumatic stress disorder, unspecified Psychiatric care Chronic post-traumatic stress disorder 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 Posada [facility] [place] History of carpal tunnel surgery 2005 [place] Hx of cholecystectomy laparascopic procedure 1999 Hx of rhinoplasty 2000 [place] Hx of tubal ligation [place] time [place] Hx of hysterectomy total laparoscopic hysterectomy, bilat salpingectomy and extensive lysis of omental adhesions on 03/22/[address] Marr at [facility] [place] for irrecular bleeding and abdominal pain. Postopertavely pathology showed no significant histopathological alteration in cervix, peritoneum, endometrium, myometrium and bilat fallopian tubes Hx of tonsillectomy 2000 in [place] Family History Father Heart disease Mother Heart disease Congestive heart failure (CHF) Sister Cancer cervical cancer Family/Other Cancer colon cancer-maternal uncle Diabetes Family/Other Cancer breast cancer-maternal aunt Stroke Other Chronic post-traumatic stress disorder Denies family history of Clotting disorder Anesthesia complication Bleeding disorder Social History Smoking and tobacco/nicotine status: current every day tobacco/nicotine user cigars Cigars smoked per week: 20 Years smoked cigars: 45 Quit status (tobacco/nicotine): considering quitting Second hand smoke exposure: Yes Alcohol intake: former Year of sobriety/quit date alcohol: 2022 Former alcohol use details: hard liquor Substance/Drug Use: current Substance/Drug use frequency: Special occassions/opportunity only Other substance/drug use details: Delta 8 gummies Adopted: No Caregiver/support person: No Lives independently: No Household members: spouse Housing: House Marital status: Marital status details: 12 years Number of children: 2 Number of grandchildren: 8 Highest education level completed: 11th Grade service: No Current occupational status: unemployed Current occupation: trying to get disability Current occupational exposures/hazards: No Pets and animals: Yes Pets & animals: cat(s), dog(s) and farm animals Farm Animals: pigs Pets & animal details: chickens, turkeys, geese, duck Leisure activites: art, games and other Leisure activities details: christiano Sexually active: No Do you think of yourself as: Straight/Heterosexual Current gender identity: Female Lore/Sabianist: Gnosticism Special lore needs: No Agree to transfusion: Yes Female Reproductive History: Para: 2 Spontaneous abortions: Yes Physical Exam Const: COMMON NORMALS: no acute distress, patient oriented x3 and no limitations GENERAL APPEARANCE: cooperative, comfortable and well developed ORIENTATION/CONSCIOUSNESS: Yes awake, Yes oriented to person, Yes oriented to place and Yes oriented to time HENMT: COMMON NORMALS: normocephalic, atraumatic and hearing grossly normal bilaterally HEAD & SCALP: normocephalic and atraumatic Eye: COMMON NORMALS: Equal, round and reactive pupils present, EOMs intact bilaterally and conjunctivae normal CONJUNCTIVA: Yes conjunctivae normal PUPIL: Yes Equal, round and reactive pupils present Neck/C-Spine: COMMON NORMALS: full ROM, supple and no JVD Resp: COMMON NORMALS: normal respiratory effort, No retractions, No use of accessory muscles and clear to auscultation bilaterally AUSCULTATION: clear to auscultation bilaterally Cardio: COMMON NORMALS: no JVD, regular rate, regular rhythm, No clicks present (Cardio), No murmurs present (Cardio) and No rub (Cardio) RATE: r egular rate RHYTHM: regular rhythm Back/Pelvis: OTHER: Postoperative scar healing well with no active drainage noted. Extremity: NARRATIVE EXTREMITY EXAM: Left posterior calf tenderness. No obvious edema to the left lower extremity. Palpable pulses distally. No skin discolorations. Neuro: COMMON NORMALS: patient oriented x3, moves all extremities, no focal motor deficits and no sensory deficits noted SENSORIUM/ORIENTATION: Yes oriented to person, Yes oriented to place and Yes oriented to time Psych: COMMON NORMALS: mental status grossly normal and Normal thought process present THOUGHT PROCESS: Normal thought process present Skin: COMMON NORMALS: no rashes or lesions noted GENERAL SKIN EXAM: no rashes or lesions noted Course Vital Signs: Vital signs: Vital Signs Temperature 98.2 F 10/31/23 20:36 Pulse Rate 97 10/31/23 23:11 Respiratory Rate 22 H 10/31/23 23:11 Blood Pressure 120/71 10/31/23 23:11 Pulse Oximetry 94 10/31/23 23:11 Oxygen Delivery Me thod Room Air 10/31/23 21:56 MDM - Back Pain/Injury Medical Decision Making Patient presents for evaluation of her wound as well as some edema to her left lower extremity. She is postop spinal fusion greater than 1 week ago, has appointment for follow-up on . Examination of her wound revealed a well-healing incision with no active bleeding or drainage, dressing is replaced prior to discharge. There was no appreciable edema to her left lower extremity, and ultrasound did not show any evidence of deep vein thrombosis. Patient is given [place] while in the ED, states pain is improved. She will keep follow-up with as planned and return with any new or worsening symptoms. Labs Radiology Impressions Venous Duplex 10/31/23 21:04 IMPRESSION: No evidence of deep vein thrombosis. All radiology interpretation(s) finalized by discharge Discharge Plan Discharge Patient Disposition: Home Clinical Impression: Postoperative edema Condition: Stable Prescriptions: No Action (DME) blood-glucose meter [Accu-Chek Guide Glucose Meter] Misc See Rx Instructions .Route Qty: 1 0RF Rx Instructions: please dispense one meter and kit with supplies that insurance covers. trazodone 100 mg tablet 100 mg PO .HS Qty: 30 2RF buspirone 10 mg tablet 10 mg PO BID Qty: 60 1RF (DME) lancets [OneTouch Delica Plus Lancet] 33 gauge misc See Rx Instructions .Route Qty: 100 0RF Rx Instructions: As directed (DME) OneTouch Verio test strips Strip See Rx Instructions .ROUTE .COMPLEX Qty: 100 3RF Dose Instruction: USE DIRECTED Rx Instructions: USE DIRECTED (DME) pen needle, diabetic [Pentips] 31 gauge x 3/16 needle See Rx Instructions .ROUTE .COMPLEX Qty: 100 0RF Dose Instruction: USE DIRECTED ONCE DAILY WITH VICTOZA Rx Instructions: USE DIRECTED ONCE DAILY WITH VICTOZA hydrocodone-acetaminophen 5-325 mg tablet 1 tab PO .Q4-6H 5 Days Qty: 30 0RF (DME) bone growth stimulator See Rx Instructions .Route .MEDSUPPLY Qty: 1 0RF Rx Instructions: As directed atorvastatin 40 mg tablet 40 mg PO DAILY cetirizine 10 mg tablet 10 mg PO DAILY meloxicam 15 mg tablet 15 mg PO DAILY glipizide 10 mg tablet 10 mg PO BID metformin 1,000 mg tablet 1,000 mg PO BID gabapentin 300 mg capsule 300 mg PO TID triamterene-hydrochlorothiazid 37.5-25 mg tablet 1 tab PO DAILY duloxetine 60 mg capsule,delayed release(DR/EC) 60 mg PO DAILY Victoza 2-David 0.6 mg/0.1 mL (18 mg/3 mL) pen injector 1.2 mg SUBCUT DAILY dapagliflozin propanediol [Farxiga] 10 mg tablet 10 mg PO DAILY Novolog FlexPen U-100 Insulin 100 unit/mL (3 mL) insulin pen See Rx Instructions .ROUTE .COMPLEX MDD 30 Qty: 15 0RF Rx Instructions: INJECT, SUBCUT, THREE TIMES DAILY, AFTER MEALS, BASED ON SLIDING SCALE PROVIDED albuterol sulfate 90 mcg/actuation HFA aerosol inhaler 1 inh inhalation Q6H PRN (Reason: shortness of breath or wheezing) Qty: 8.5 0RF Discharge Orders: Discharge ED (Routine); Ordered 10/31/23 Ordered By: Epifanio Lopez Discharge Diet: Usual diet Discharge Activity: Increase activity as tolerated Patient Instructions: Edema (ED) Activity Restrictions/Additional Instructions: Continue taking pain medications at home for breakthrough pain. Keep follow-up on as planned. Return with any new or concerning symptoms. Coding Level of Care Code ED Donations Attendant for Chg Fwd Documented by User: Pablo Saravia DO 11/01/23 07:54 HPI - Back Pain/Injury General: Chief Complaint: Back Pain/Injury Stated Complaint: back seeping left leg swollen Time Seen by Provider: 10/31/23 20:50 PFSH ED PFSH: Medical History Leukocytosis chronic since 2019 KELSI (obstructive sleep apnea) not compliant Inadequate housing Low income Post-traumatic stress disorder, unspecified Psychiatric care Chronic post-traumatic stress disorder 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 Posada [facility] [place] History of carpal tunnel surgery 2005 [place] Hx of cholecystectomy laparascopic procedure 1999 Hx of rhinoplasty 2000 in [place] Hx of tubal ligation 1993 [place] [facility] at time of second [place]x of section [place] 1993 [facility] [place] Hx of hysterectomy total laparoscopic hysterectomy, bilat salpingectomy and extensive lysis of omental adhesions on 03/22/[address] Marr at [facility] [place] for irrecular bleeding and abdominal pain. Postopertavely pathology showed no significant histopathological alteration in cervix, peritoneum, endometrium, myometrium and bilat fallopian tubes Hx of tonsillectomy 2000 in [place] Family History Father Heart disease Mother Heart disease Congestive heart failure (CHF) Sister Cancer cervical cancer Family/Other Cancer colon cancer-maternal uncle Diabetes Family/Other Cancer breast cancer-maternal aunt Stroke Other Chronic post-traumatic stress disorder Denies family history of Clotting disorder Anesthesia complication Bleeding disorder Social History Smoking and tobacco/nicotine status: current every day tobacco/nicotine user cigars Cigars smoked per week: 20 Years smoked cigars: 45 Quit status (tobacco/nicotine): considering quitting Second hand smoke exposure: Yes Alcohol intake: former Year of sobriety/quit date alcohol: 2022 Former alcohol use details: hard liquor Substance/Drug Use: current Substance/Drug use frequency: Special occassions/opportunity only Other substance/drug use details: Delta 8 gummies Adopted: No Caregiver/support person: No Lives independently: No Household members: spouse Housing: House Marital status: Marital status details: 12 years Number of children: 2 Number of grandchildren: 8 Highest education level completed: 11th Grade service: No Current occupational status: unemployed Current occupation: trying to get disability Current occupational exposures/hazards: No Pets and animals: Yes Pets & animals: cat(s), dog(s) and farm animals Farm Animals: pigs Pets & animal details: chickens, turkeys, geese, duck Leisure activites: art, games and other Leisure activities details: christiano Sexually active: No Do you think of yourself as: Straight/Heterosexual Current gender identity: Female Lore/Sabianist: Gnosticism Special lore needs: No Agree to transfusion: Yes Course Vital Signs: Vital signs: Vital Signs Temperature 98.2 F 10/31/23 20:36 Pulse Rate 97 10/31/23 23:11 Respiratory Rate 22 H 10/31/23 23:11 Blood Pressure 120/71 10/31/23 23:11 Pulse Oximetry 94 10/31/23 23:11 Oxygen Delivery Me thod Room Air 10/31/23 21:56 MDM - Back Pain/Injury Medical Decision Making Patient presents for evaluation of her wound as well as some edema to her left lower extremity. She is postop spinal fusion greater than 1 week ago, has appointment for follow-up on . Examination of her wound revealed a well-healing incision with no active bleeding or drainage, dressing is replaced prior to discharge. There was no appreciable edema to her left lower extremity, and ultrasound did not show any evidence of deep vein thrombosis. Patient is given [place] while in the ED, states pain is improved. She will keep follow-up with as planned and return with any new or worsening symptoms. Chart reviewed Labs Radiology Impressions Venous Duplex 10/31/23 21:04 IMPRESSION: No evidence of deep vein thrombosis. Discharge Plan Discharge Patient Disposition: Home Clinical Impression: Postoperative edema Condition: Stable Prescriptions: No Action (DME) blood-glucose meter [Accu-Chek Guide Glucose Meter] Misc See Rx Instructions .Route Qty: 1 0RF Rx Instructions: please dispense one meter and kit with supplies that insurance covers. trazodone 100 mg tablet 100 mg PO .HS Qty: 30 2RF buspirone 10 mg tablet 10 mg PO BID Qty: 60 1RF (DME) lancets [OneTouch Delica Plus Lancet] 33 gauge misc See Rx Instructions .Route Qty: 100 0RF Rx Instructions: As directed (DME) OneTouch Verio test strips Strip See Rx Instructions .ROUTE .COMPLEX Qty: 100 3RF Dose Instruction: USE DIRECTED Rx Instructions: USE DIRECTED (DME) pen needle, diabetic [Pentips] 31 gauge x 3/16 needle See Rx Instructions .ROUTE .COMPLEX Qty: 100 0RF Dose Instruction: USE DIRECTED ONCE DAILY WITH VICTOZA Rx Instructions: USE DIRECTED ONCE DAILY WITH VICTOZA hydrocodone-acetaminophen 5-325 mg tablet 1 tab PO .Q4-6H 5 Days Qty: 30 0RF (DME) bone growth stimulator See Rx Instructions .Route .MEDSUPPLY Qty: 1 0RF Rx Instructions: As directed atorvastatin 40 mg tablet 40 mg PO DAILY cetirizine 10 mg tablet 10 mg PO DAILY meloxicam 15 mg tablet 15 mg PO DAILY glipizide 10 mg tablet 10 mg PO BID metformin 1,000 mg tablet 1,000 mg PO BID gabapentin 300 mg capsule 300 mg PO TID triamterene-hydrochlorothiazid 37.5-25 mg tablet 1 tab PO DAILY duloxetine 60 mg capsule,delayed release(DR/EC) 60 mg PO DAILY Victoza 2-David 0.6 mg/0.1 mL (18 mg/3 mL) pen injector 1.2 mg SUBCUT DAILY dapagliflozin propanediol [Farxiga] 10 mg tablet 10 mg PO DAILY Novolog FlexPen U-100 Insulin 100 unit/mL (3 mL) insulin pen See Rx Instructions .ROUTE .COMPLEX MDD 30 Qty: 15 0RF Rx Instructions: INJECT, SUBCUT, THREE TIMES DAILY, AFTER MEALS, BASED ON SLIDING SCALE PROVIDED albuterol sulfate 90 mcg/actuation HFA aerosol inhaler 1 inh inhalation Q6H PRN (Reason: shortness of breath or wheezing) Qty: 8.5 0RF Discharge Orders: Discharge ED (Routine); Ordered 10/31/23 Ordered By: Epifanio Lopez Discharge Diet: Usual diet Discharge Activity: Increase activity as tolerated Patient Instructions: Edema (ED) Activity Restrictions/Additional Instructions: Continue taking pain medications at home for breakthrough pain. Keep follow-up on as planned. Return with any new or concerning symptoms. Coding Level of Care Code ED Donations Attendant for Anila Murray
[2023-10-31 21:56] VITALS: BP 128/74; O2SAT 95
[2023-10-31 22:30] VITALS: BP 118/77
[2023-10-31 23:11] VITALS: BP 120/71; PULSE 97; RESP 22; O2SAT 94
== END 2023-10-31 23:14 | disposition home or self-care (01) ==
PROVIDERS: Emergency Provider Physician Assistant
DX: L76.82 Other postprocedural complications of skin and subcutaneous tissue (principal); R60.0 Localized edema; Z79.4 Long term (current) use of insulin; Z79.84 Long term (current) use of oral hypoglycemic drugs; F17.290 Nicotine dependence, other tobacco product, uncomplicated
CPT/HCPCS: 93971; 99284

== ENCOUNTER 2023-11-09 07:12 | Outpatient (CLI) | payer BC, MEDICAID, SELFPAY ==
[2023-06-14 15:54] VITALS: BP 124/77; BMI 33.1
[2023-11-09 07:31] VITALS: PULSE 99; RESP 18; O2SAT 98
[2023-11-09] MEDS: albuterol 2.5 mg/3 mL Neb INHALATION (07:31)
[2023-11-09 07:35] VITALS: PULSE 105
--- NOTE | 2023-11-09 13:21 | MM_ITS ---
WS: [id number] Bilateral screening 3D tomosynthesis digital mammogram, 11/09/2023 Clinical Data: Z12.31 - Encounter for screening mammogram for malignant ... Comparison: 08/04/2022, 11/16/2020, 10/21/2015, 09/12/2014. Findings: The breast parenchymal pattern shows fibroglandular tissue. No spiculated masses or clustered calcifi cations are seen. There are no secondary signs of carcinoma. MM/[place] [id number] Impression: 1. Negative bilateral mammogram unchanged. 2. Recommend annual screening mammograms. BIRADS: 1-Negative FOLLOW UP: 1 Year Follow-up The CAD baggage security checker was used.
== END 2023-11-09 07:13 | disposition home or self-care (01) ==
LOC: RT 07:13
PROVIDERS: PCP Family Medicine; Visit Provider Family Medicine
DX: J96.01 Acute respiratory failure with hypoxia (principal); Z72.0 Tobacco use
CPT/HCPCS: 77063; 77067; 94060; J7613

== ENCOUNTER 2023-11-17 08:44 | Outpatient (CLI) | payer BC, MEDICAID, SELFPAY ==
[2023-06-14 15:54] VITALS: BP 124/77; BMI 33.1
--- NOTE | 2023-11-17 09:01 | CT_ITS ---
WS: [id number] LDCT LUNG CANCER SCREENING HISTORY: NICOTINE DEPENDENCE, CIGARETTES TECHNIQUE: Axial imaging performed from the apices to 1 cm below the costophrenic angles. Coronal and sagittal reformats are submitted with axial MIP series. All CT scans at [facility] use at least one of these dose optimization techniques: automated exposure control; mA and/or kV adjustment per patient size (includes targeted exams where dose is matched to clinical indication); or iterativ e reconstruction. DLP: 81.01 mGy.cm DIvol: Mean CTDIvol: 2.00 (mGy) COMPARISON: 11/13/2015 Diagnostic quality: Satisfactory Lungs: Lung volumes are slightly decreased. There is hazy attenuation with mosaic pattern involving t he lower lobes with lesser involvement of the upper lobes. No mass or nodule. Heart: Normal size heart with no pericardial effusion.. Other findings: There is significant enlargement of the pulmonary artery to 4.2 cm. Size is increased from 3.3 cm in 2016. Small mediastinal and hilar lymph nodes. Hilar regions are otherwise difficult to evaluate without oral contrast. Hepatic steatosis. CT/CT lung screening [id number] IMPRESSION: LUNG-RADS: 1S-Negative with Significant Findings FOLLOW UP: 12 Month: Continue annual screening with LDCT OTHER FINDINGS (S MODIFIER): Significantly enlarged pulmonary artery. Correlate for pulmonary arterial hypertension.
== END 2023-11-17 08:45 | disposition home or self-care (01) ==
LOC: RAD 08:44
PROVIDERS: PCP Family Medicine; Visit Provider Family Medicine
DX: Z12.2 Encounter for screening for malignant neoplasm of respiratory organs (principal); I77.89 Other specified disorders of arteries and arterioles; K76.0 Fatty (change of) liver, not elsewhere classified; F17.210 Nicotine dependence, cigarettes, uncomplicated
CPT/HCPCS: 71271

== ENCOUNTER → 2023-11-23 13:06 | Outpatient (BNVA) | payer BC, MEDICAID, SELFPAY ==
[2023-06-14 15:54] VITALS: BP 124/77; BMI 33.1
== END ==
PROVIDERS: PCP Family Medicine; Visit Provider Orthopaedic Surgery
DX: Z98.1 Arthrodesis status (principal)
CPT/HCPCS: 72100

== ENCOUNTER → 2023-12-07 07:55 | Outpatient (BNVA) | payer BC, MEDICAID, SELFPAY ==
[2023-06-14 15:54] VITALS: BP 124/77; BMI 33.1
== END ==
PROVIDERS: PCP Family Medicine; Visit Provider Orthopaedic Surgery
DX: Z98.1 Arthrodesis status (principal)
CPT/HCPCS: 72100

== ENCOUNTER 2024-02-02 11:24 | Outpatient (CLI) | payer MEDICAID, SELFPAY ==
[2023-06-14 15:54] VITALS: BP 124/77; BMI 33.1
--- NOTE | 2024-02-02 11:36 | XR_ITS ---
WS: [id number] XR hip RT 2-3V wo/w pel* [id number] REASON FOR EXAM: RIGHT HIP PAIN FINDINGS: No fracture or focal bone lesion. Minimal narrowing of the joint space. Mild subchondral sclerosis and osteophytosis of the acetabulum. Mild osteophytosis of the femoral head. XR/XR hip RT 2-3V wo/w pel* [id number] IMPRESSION: Mild osteoarthritis of the right hip.
== END 2024-02-02 11:25 | disposition home or self-care (01) ==
PROVIDERS: PCP Family Medicine; Visit Provider Family Medicine
DX: M25.551 Pain in right hip (principal)
CPT/HCPCS: 73502

== ENCOUNTER → 2024-04-11 08:10 | Outpatient (BNVA) | payer BC, MEDICAID, SELFPAY ==
[2023-06-14 15:54] VITALS: BP 124/77; BMI 33.1
== END ==
PROVIDERS: PCP Family Medicine; Visit Provider Orthopaedic Surgery
DX: Z98.1 Arthrodesis status (principal)
CPT/HCPCS: 72100

== ENCOUNTER → 2024-05-13 10:50 | Outpatient (BNVA) | payer BC, SELFPAY ==
[2023-06-14 15:54] VITALS: BP 124/77; BMI 33.1
== END ==
PROVIDERS: PCP Family Medicine; Visit Provider Nurse Practitioner
DX: M25.551 Pain in right hip (principal)
CPT/HCPCS: 73502

== ENCOUNTER 2024-06-07 08:49 | Outpatient (CLI) | payer BC, MEDICAID, SELFPAY ==
[2023-06-14 15:54] VITALS: BP 124/77; BMI 33.1
--- NOTE | 2024-06-07 09:15 | USCV_ITS ---
Mariam Lyons Age: 54 Gender: F : 1970 Exam Date: 06/07/2024 09:03 Ordering Phys: Lisette Cui MD ([email or web address]) Technologist: Sidney Medrano [place]am [place] [facility] [place] Indication: c/p palpitations BP: 120 / 74 HR: 81 Rhythm: Sinus Technical Quality: Adequate MEASUREMENTS (Male / Female) Normal Values 2D ECHO LV Diastolic Diameter PLAX 2.1 cm 4.2 - 5.9 / 3.9 - 5.3 cm IVS Diastolic Thickness 1.5 cm 0.6 - 1.0 / 0.6 - 0.9 cm IVS Systolic Thickness 1.6 cm LVPW Diastolic Thickness 2.1 cm 0.6 - 1.0 / 0.6 - 0.9 cm LVPW Systolic Thickness 1.8 cm LVOT Diameter 2.0 cm LV Ejection Fraction 2D Teich 64.7 % LV Ejection Fraction MOD 4C 62.5 % LV Ejection Fraction MOD 2C 65.0 % LV Ejection Fraction 2C AL 65.8 % LA Diameter 3.6 cm RA Systolic Volume 4C AL 24.9 ml RA Systolic Volume 4C MOD 24.9 ml LA Sys Volume AL 30.4 cm cubed LA Sys Volume Index AL 12.1 cm cubed/m squared Aorta at Sinotubular Diameter 2.3 cm IVC Diameter 1.7 cm M-MODE LA Ao Ratio MM 1.2 AV Cusp Separation MM 2.1 cm DOPPLER AV Peak Velocity 119.0 cm/s LVOT Peak Velocity 106.0 cm/s AV Area Cont Eq vti 2.9 cm squared AV Area Cont Eq pk 2.9 cm squared MV Peak Velocity 102.0 cm/s MV Area PHT 4.3 cm squared Mitral E to A Ratio 0.9 TV Peak Velocity 202.0 cm/s TR Peak Velocity 250.0 cm/s TR Peak Gradient 25.0 mmHg TR Mean Velocity 222.0 cm/s TR Mean Gradient 20.4 mmHg TR Velocity Time Integral 69.2 cm PV Peak Velocity 129.0 cm/s RV Ejection Time 0.3 s FINDINGS Left Ventricle Normal left ventricular size and systolic function, EF 63%. Mild left ventricular hypertrophy. No regional wall motion abnormalities. Right Ventricle The right ventricle is normal in size and function. Right Atrium The right atrium is normal in size. Left Atrium The left atrium is normal in size. Mitral Valve No gross abnormalities noted . Aortic Valve No gross abnormalities noted . Tricuspid Valve Trace tricuspid valve regurgitation. Pulmonic Valve Pulmonic valve not well visualized. Pericardium Normal pericardium without effusion. Aorta Normal ascending aorta dimension. IVC The inferior vena cava appears normal. CONCLUSIONS Normal left ventricular size and systolic function, EF 63%. Mild left ventricular hypertrophy. No regional wall motion abnormalities. Trace tricuspid valve regurgitation. Trace tricuspid valve regurgitation. There is no pericardial effusion. There are no intracardiac masses. No similar previous studies are available for comparison Dr Lisette Cui MD FACC (Electronically Signed) Final Date: 14 June 2024 19:24 S
== END 2024-06-07 08:50 | disposition home or self-care (01) ==
LOC: RAD 08:50
PROVIDERS: PCP Family Medicine; Visit Provider Internal Medicine Cardiovascular Disease
DX: R06.09 Other forms of dyspnea (principal); R07.9 Chest pain, unspecified
CPT/HCPCS: 93306

== ENCOUNTER → 2024-07-01 11:03 | Outpatient (BNVA) | payer SELFPAY ==
[2024-07-02 11:17] VITALS: BP 137/85; BMI 32.2
== END ==
PROVIDERS: PCP Family Medicine; Visit Provider Nurse Practitioner
DX: F43.12 Post-traumatic stress disorder, chronic (principal); F33.1 Major depressive disorder, recurrent, moderate
CPT/HCPCS: 80061; 83036

== ENCOUNTER → 2024-07-04 14:37 | Outpatient (BNVA) | payer OTHER, SELFPAY ==
[2024-07-02 11:17] VITALS: BP 137/85; BMI 32.2
== END ==
PROVIDERS: PCP Family Medicine; Visit Provider Orthopaedic Surgery
DX: Z98.1 Arthrodesis status (principal)
CPT/HCPCS: 72100

== ENCOUNTER 2024-07-12 08:39 | Outpatient (CLI) | payer MEDICAID, BC, SELFPAY ==
[2024-07-02 11:17] VITALS: BP 137/85; BMI 32.2
--- NOTE | 2024-07-12 08:45 | MR_ITS ---
WS: [id number] MRI LUMBAR SPINE NONCONTRAST HISTORY: Back Pain COMPARISON: Radiograph 07/04/2024, MRI 09/11/2023 TECHNIQUE: Sagittal and axial multisequence imaging is submitted. Interval posterior lumbar fusion from L3-L5. Interbody spacers at L3-4 and L4-5. Very mild straightening of the normal lumbar lordosis. 2 mm retrolisthesis of L2. No acute fracture o r marrow edema. Appropriate postsurgical changes are noted in the paraspinal soft tissues at L4-5. Disc spaces and vertebral body heights are well-preserved. Conus terminates normally at L1-2 disc level. L1-L2: Normal. L2-L3: Mild annular disc bulging encroaching upon the ventral thecal sac and subarticular recesses. M ild ligamentum flavum and facet arthritis. Mild bilateral foraminal stenosis. Similar findings seen o n the prior study. L3-L4: Mild disc bulging. Large posterior laminectomy defect. No stenosis. L4-L5: Mild disc bulging with a large posterior laminectomy defect. Mild bilateral foraminal stenosis , RIGHT greater than LEFT. L5-S1: Mild disc bulging with moderate facet joint arthritis. Mild foraminal narrowing. Paravertebral soft tissues are normal. MR/MR lumbar spine wo con* [id number] IMPRESSION: 1. Since the prior MRI 09/11/2023 posterior lumbar fusion has been performed fr om L3-L5 with interbody spacers at L3-4 and L4-5. 2. Appropriate postsurgical changes in the paraspinal soft tissues. 3. No acute fracture. 4. L2-3: Mild disc encroachment upon the ventral thecal sac and subarticular r ecesses, similar to the prior study. Mild central and subarticular recess steno sis. 5. Large posterior laminectomy defects at L3-4 and L4-5. 6. Mild bilateral foraminal stenosis at L4-5 and L5-S1.
== END 2024-07-12 08:40 | disposition home or self-care (01) ==
LOC: RAD 08:39
PROVIDERS: PCP Family Medicine; Visit Provider Orthopaedic Surgery
DX: M48.061 Spinal stenosis, lumbar region without neurogenic claudication (principal); Z98.1 Arthrodesis status; R93.89 Abnormal findings on diagnostic imaging of other specified body structures; M51.369 Other intervertebral disc degeneration, lumbar region without mention of lumbar back pain or lower extremity pain; M47.816 Spondylosis without myelopathy or radiculopathy, lumbar region; M51.379 Other intervertebral disc degeneration, lumbosacral region without mention of lumbar back pain or lower extremity pain; M48.07 Spinal stenosis, lumbosacral region; M96.89 Other intraoperative and postprocedural complications and disorders of the musculoskeletal system
CPT/HCPCS: 72148

== ENCOUNTER 2024-07-15 10:53 | Outpatient (CLI) | payer BC, MEDICAID, SELFPAY ==
[2023-06-14 15:54] VITALS: BP 124/77; BMI 33.1
[2024-07-02 11:17] VITALS: BP 137/85; BMI 32.2
--- NOTE | 2024-07-15 | ECG_ITS ---
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 Interpretive Statements EXERCISE STRESS TEST EXERCISE DATA: The patient was exercised by Javi protocol. Baseline heart rate was 96 beats per minute. Baseline blood pressure was 128/79 millimeters of mercury. Maximal predicted heart rate was 168 beats per minute. Maximum heart rate achieved was 143, which was 85% of the maximum predicted heart rate. Maximum blood pressure was 185/83 millimeters of mercury. Total exercise time was 3 minutes. Maximum METs achieved was 4.6. The reason for ending the test was completion of protocol. The patient complained of shortness of breath during the stress test, which then resolved at the end of the test. ELECTROCARDIOGRAM: BASELINE: Showed sinus tachycardia, normal axis, no significant ST-T changes at the baseline noted. [] EXERCISE: At the peak exercise level, [] No significant ST-T changes suggestive of ischemia noted. [] RECOVERY: During the recovery period, heart rate dropped appropriately. No significant ST-T changes in the recovery suggestive of ischemia noted. [] CONCLUSION: 1. Exercise capacity is fair 2. Heart rate response was appropriate 3. Blood pressure response was appropriate 4. Symptoms not suggestive of ischemia. 5. Stress test was not suggestive of ischemia. Electronically Signed On 07-27-2024 22:56:34 [employer] by Edmond Hernandez M.D. [email or web address]
[2024-07-15 11:04] VITALS: BMI 32.1
[2024-07-15 11:50] VITALS: BP 153/83; PULSE 106
== END 2024-07-15 10:54 | disposition home or self-care (01) ==
LOC: CDL 10:57
PROVIDERS: PCP Family Medicine; Visit Provider Internal Medicine Cardiovascular Disease
DX: M16.11 Unilateral primary osteoarthritis, right hip (principal); M53.3 Sacrococcygeal disorders, not elsewhere classified; G89.29 Other chronic pain; R07.9 Chest pain, unspecified; R00.0 Tachycardia, unspecified
CPT/HCPCS: 80061; 83036; 93017; 99213

== ENCOUNTER 2024-07-25 11:46 | Outpatient (CLI) | payer BC, MEDICAID, SELFPAY ==
[2024-07-02 11:17] VITALS: BP 137/85; BMI 32.2
--- NOTE | 2024-07-25 11:53 | CT_ITS ---
WS: [id number] CT CHEST CT-HIGH RESOLUTION, NONCONTRAST. HISTORY: Interstitial lung disease. Technique: High-resolution chest CT is performed in inspiration, expiration, supine and prone positio wanda. All CT scans at [facility] use at least one of these dose optimization techniques: automated exposure control; mA and/or kV adjustment per patient size (includes targeted exams where dose is mat ched to clinical indication); or iterative reconstruction. DLP: 1404.20 mGy.cm COMPARISON: 11/17/2023, 11/13/2015 Findings: Lungs are well-aerated. No significant volume loss. No honeycombing. Mild early changes of bronchiectasis bilaterally in the lower lobes. No mass or nodule. Diffuse mild mosaic attenuation and groundglass attenuation greatest at the lung bases. On prone imaging there is no change in the aeration. Mosaic attenuation and groundglass attenuation r emains stable. No areas of atelectasis. Several small mediastinal and hilar lymph nodes are identified. There is fullness at the LEFT hilum w hich cannot be further evaluated without IV contrast. Small paraesophageal lymph nodes. Paraesophagea l lymph nodes have slightly decreased in size since 2016. Pulmonary artery is dilated to 3.7 cm. Mild atherosclerosis aorta with no dilatation. Heart size is normal. Small hiatal hernia. No adrenal mass. CT/CT chest wo con [id number] Impression: 1. Mosaic and groundglass attenuation throughout both lungs but greatest in th e lower lung barron. Differential includes hypersensitivity pneumonia, asthma a nd chronic thromboembolic disease. 2. Mild bronchiectasis in the lower lung barron but no honeycombing. 3. Dilated pulmonary artery. Consider pulmonary hypertension. 4. Fullness at the hilar regions, greatest involving the LEFT hilum. Underlyin g adenopathy cannot be excluded without IV contrast. Prominent lymph nodes were described on the prior CT from 2016 at the LEFT hilum also. 5. No pulmonary nodule or pneumonia.
== END 2024-07-25 11:47 | disposition home or self-care (01) ==
PROVIDERS: PCP Family Medicine; Visit Provider Student in an Organized Health Care Education/Training Program
DX: J98.4 Other disorders of lung (principal); R91.8 Other nonspecific abnormal finding of lung field; J47.9 Bronchiectasis, uncomplicated; I28.1 Aneurysm of pulmonary artery; R59.0 Localized enlarged lymph nodes; I70.0 Atherosclerosis of aorta; K44.9 Diaphragmatic hernia without obstruction or gangrene; Z98.1 Arthrodesis status; M43.16 Spondylolisthesis, lumbar region
CPT/HCPCS: 71250; 72100

== ENCOUNTER → 2024-09-24 16:05 | Outpatient (BNVA) | payer BC, SELFPAY ==
[2024-07-02 11:17] VITALS: BP 137/85; BMI 32.2
== END ==
PROVIDERS: PCP Family Medicine; Visit Provider Orthopaedic Surgery
DX: M54.50 Low back pain, unspecified (principal); G89.29 Other chronic pain
CPT/HCPCS: 36415; 80053; 81001; 85025

== ENCOUNTER 2024-11-22 09:17 | Outpatient (CLI) | payer BC, MEDICAID, SELFPAY ==
[2024-07-02 11:17] VITALS: BP 137/85; BMI 32.2
--- NOTE | 2024-11-22 09:20 | MM_ITS ---
WS: [id number] BILATERAL 3D TOMOSYNTHESIS DIGITAL SCREENING MAMMOGRAPHY WITH CAD CLINICAL INFORMATION: SCREENING HISTORY: Screening mammogram. No current complaints. COMPARISON: 2023 TECHNIQUE: Bilateral CC and MLO views. FINDINGS: Scattered fibroglandular densities bilaterally. No suspicious focal mass, asymmetry, calcifications, or architectural distortion. No evidence of malignancy. Lucent centered calcification LEFT breast MM/MM scr BI tomosynthesis [id number] IMPRESSION: DENSITY: There are scattered areas of fibroglandular density. BI-RADS: 2 - Benign. FOLLOW UP: 1 Year Follow-up Recommend return to annual screening mammography.
== END 2024-11-22 09:18 | disposition home or self-care (01) ==
PROVIDERS: PCP Family Medicine; Visit Provider Family Medicine
DX: Z12.31 Encounter for screening mammogram for malignant neoplasm of breast (principal); Z01.818 Encounter for other preprocedural examination; R92.323 Mammographic fibroglandular density, bilateral breasts; R92.1 Mammographic calcification found on diagnostic imaging of breast
CPT/HCPCS: 77063; 77067; 80053; 81003; 85007; 85027; 93005

== ENCOUNTER → 2025-05-06 14:05 | Outpatient (BNVA) | payer OTHER, SELFPAY ==
[2024-07-02 11:17] VITALS: BP 137/85; BMI 32.2
== END ==
PROVIDERS: PCP Family Medicine; Visit Provider Orthopaedic Surgery
DX: M54.50 Low back pain, unspecified (principal); Z98.1 Arthrodesis status; G89.29 Other chronic pain; G62.9 Polyneuropathy, unspecified
CPT/HCPCS: 72100

== ENCOUNTER 2025-05-15 08:44 | Outpatient (CLI) | payer BC, MEDICAID, SELFPAY ==
[2024-07-02 11:17] VITALS: BP 137/85; BMI 32.2
--- NOTE | 2025-05-15 08:45 | MR_ITS ---
WS: [id number] MRI LUMBAR SPINE NONCONTRAST HISTORY: chronic low back pain, prior lumbar fusion September 2024. Pain down RIGHT leg. COMPARISON: 07/12/2024 TECHNIQUE: Sagittal and axial multisequence imaging is submitted. L2 retrolisthesis by 4 mm. L4 anterolisthesis by 3 mm. Posterior fusion hardware extends from L3-L5. Interbody spacers at L3-4 and L4-5. There is a small amount of marrow edema associated with the pedicle screws at L4 and L5. Postsurgical soft tissue changes of edema posteriorly at the L3-L5 levels. No measurable fluid collection. Conus terminates normally at L1-2 disc level. L1-L2: Bilateral facet arthritis. No stenosis. L2-L3: Retrolisthesis of L2. Disc bulging, and mild osteophytic ridging with facet arthritis. Disc encroachment upon the subarticular recesses and traversing L3 nerve roots. Mild RIGHT and moderate LEFT foraminal stenosis. L3-L4: Annular disc bulging. Large posterior laminectomy defect. Patulous thecal sac with less central stenosis. Moderate RIGHT and mild LEFT foraminal stenosis. L4-L5: Mild diffuse annular disc bulging. Patulous thecal sac. Mild clumping of the nerve roots in the peripheral thecal sac. Large posterior laminectomy defect. Moderate bilateral foraminal stenosis. Near complete effacement of CSF. L5-S1: Mild asymmetric disc bulging. Mild bilateral foraminal stenosis. Facet joint arthritis. Paravertebral soft tissues demonstrate postoperative changes from L3-L5. Cortical cyst medial LEFT kidney measures 8 mm. LEFT ovarian cyst 3.7 cm. Smaller follicle or cyst associated with the RIGHT adnexa measures 2.0 cm. MR/MR lumbar spine wo con* [id number] IMPRESSION: 1. Status post posterior lumbar fusion from L3-L5 with interval body spacers a t L3-4 and L4-5. 2. Postoperative changes in the soft tissues but no focal fluid collections. 3. L2 retrolisthesis by 4 mm. 4. L4 anterolisthesis by 3 mm. 5. Moderate LEFT and mild RIGHT foraminal stenosis at L2-3. There is disc encr oachment upon the traversing L3 nerve roots. Not significantly changed. 6. Moderate bilateral foraminal stenosis at L4-5 encroaching upon the exiting L4 nerve roots. Stenosis does appear more pronounced than on 07/12/2024. 7. Moderate RIGHT and mild LEFT foraminal stenosis at L3-4. Similar to the anabel or study of 07/12/2024.
== END 2025-05-15 08:45 | disposition home or self-care (01) ==
LOC: RAD 08:44
PROVIDERS: PCP Family Medicine; Visit Provider Orthopaedic Surgery
DX: Z98.1 Arthrodesis status (principal); G89.29 Other chronic pain; G62.9 Polyneuropathy, unspecified; M43.16 Spondylolisthesis, lumbar region; M48.061 Spinal stenosis, lumbar region without neurogenic claudication; R93.7 Abnormal findings on diagnostic imaging of other parts of musculoskeletal system; M47.896 Other spondylosis, lumbar region; M51.369 Other intervertebral disc degeneration, lumbar region without mention of lumbar back pain or lower extremity pain; M25.78 Osteophyte, vertebrae; M96.89 Other intraoperative and postprocedural complications and disorders of the musculoskeletal system; M51.379 Other intervertebral disc degeneration, lumbosacral region without mention of lumbar back pain or lower extremity pain; M48.07 Spinal stenosis, lumbosacral region; M47.897 Other spondylosis, lumbosacral region; N28.1 Cyst of kidney, acquired; N83.202 Unspecified ovarian cyst, left side
CPT/HCPCS: 72148

== ENCOUNTER 2025-05-19 12:58 | Outpatient (CLI) | payer BC, MEDICAID, SELFPAY ==
[2024-07-02 11:17] VITALS: BP 137/85; BMI 32.2
== END 2025-05-19 12:59 | disposition home or self-care (01) ==
LOC: SLEEP 12:59
PROVIDERS: PCP Family Medicine; Referring Provider Nurse Practitioner; Visit Provider Internal Medicine Pulmonary Disease
DX: G47.33 Obstructive sleep apnea (adult) (pediatric) (principal)
CPT/HCPCS: G0399

== ENCOUNTER 2025-06-02 11:09 | Outpatient (CLI) | payer MEDICAID, BC, SELFPAY ==
[2024-07-02 11:17] VITALS: BP 137/85; BMI 32.2
[2025-06-02 11:50] LABS: Hematocrit 42.4 % (36-47); Hemoglobin 13.80 g/dL (11.27-16.99); Mean Corpuscular HGB Conc 32.5 g/dL (30-55); Mean Corpuscular Hemoglobin 30.4 pg (27-33); Mean Corpuscular Volume 93.4 fl (85-98); Nucleated Red Blood Cells % 0 %; Platelet Count 409 10^3/cmm (157-399); Red Blood Count 4.54 10^6/uL (3.85-5.65); White Blood Count 10.81 10^3/uL (3.29-11.43)
[2025-06-02 11:54] LABS: Glucose Urine UA 1+ (Normal); Nitrate Urine Negative (Negative); Specific Gravity, Urine 1.030 (1.005-1.030)
[2025-06-02 11:59] LABS: Add Urine Microscopic? YES
[2025-06-02 12:19] LABS: Alanine Aminotransferase 27 U/L (0-33); Albumin Level 4.4 g/dL (3.5-5.2); Alkaline Phosphatase 97 U/L (35-105); Anion Gap 14.0 (5-19); Aspartate Amino Transferase 25 U/L (0-32); Blood Urea Nitrogen 15 mg/dL (6-20); Calcium 9.5 mg/dL (8.5-10.5); Carbon Dioxide 24 mmol/L (22-29); Chloride 103 mmol/L (98-107); Globulin 3.3 g/dL (1.3-4.6); Glucose 233 mg/dL (65-115); Osmolality Calculated 292 mOsm/kg (285-295); Potassium 4.0 mmol/L (3.5-5.1); Sodium 137 mmol/L (136-145); Total Protein 7.7 g/dL (6.6-8.7)
== END 2025-06-02 11:10 | disposition home or self-care (01) ==
LOC: LAB 11:10
PROVIDERS: PCP Family Medicine; Visit Provider Orthopaedic Surgery
DX: Z01.818 Encounter for other preprocedural examination (principal)
CPT/HCPCS: 36415; 80053; 81001; 85025